=== PATIENT | female | born 2005 | race African-American/Black ===

== ENCOUNTER 2023-02-11 12:26 | Observation (INO) | payer BC, OTHER ==
[2023-02-11 13:07] LABS: Absolute Lymphocytes (CBC) 1.2 K/uL (0.7-4.9); Hematocrit 37.4 % (36.0-45.0); Lymphocytes % 13.3 % (15.3-44.8); MCV 86.3 fL (80-100); Platelets 223 thou/uL (152-406); RBC Red Blood Cell Count 4.34 M/uL (3.86-4.86)
[2023-02-11] MEDS ORDERED: ONDANSETRON 4 MG/2 ML VIAL ONE ×2 (13:12→13:55)
[2023-02-11] MEDS ORDERED: KETOROLAC 30 MG/ML INJ ONE (13:12)
[2023-02-11 13:31] LABS: ALT/SGPT 38 U/L (13-56); AST/SGOT 24 U/L (15-37); Albumin 4.2 g/dL (3.4-5.0); Alkaline Phosphatase 59 U/L (45-117); BUN Blood Urea Nitrogen 9 mg/dL (7-18); Bicarbonate 18 mEq/L (21-32); Bilirubin Direct 0.1 mg/dL (0-0.2); Bilirubin Indirect, Calculated 0.4 mg/dL (0.2-0.8); Bilirubin Total 0.5 mg/dL (0.2-1.0); Glomerular Filtration Rate 65 ml/min (=/>90); Glucose Level 123 mg/dL (74-106); Magnesium 2.2 mg/dL (1.6-2.4); Potassium 3.5 mEq/L (3.5-5.1); Protein, Total 7.5 g/dL (6.4-8.2); Sodium Level 138 mEq/L (136-145)
[2023-02-11 13:34] LABS: Troponin High Sensitivity < 3.0 pg/mL (<58.9)
[2023-02-11 13:50] LABS: Urine Bacteria <20 /HPF (<20); Urine Bilirubin NEGATIVE (Negative); Urine Blood 3+ (OVER) (Negative); Urine Clarity Turbid (Clear); Urine Color Colorless (Yellow); Urine Glucose NEGATIVE (Negative); Urine Mucus Slight /HPF (None Seen); Urine Protein TRACE (Negative); Urine RBC 21-50 /HPF (None Seen); Urine Urobilinogen Normal (Normal)
--- NOTE | 2023-02-11 13:50 | RAD REPORT ---
EXAM DESCRIPTION: RAD - Chest Single View - 02/11/2023 1:42 pm CLINICAL HISTORY: CHEST PAIN COMPARISON: No comparisons FINDINGS: Lines: None. Lungs: No evidence of edema or pneumonia. Pleural: No significant pleural effusions or pneumothorax. Cardiac: The heart size is within normal limits. Mediastinum: Within normal limits. Bones: No acute fractures. Other: None IMPRESSION: No acute cardiopulmonary disease.
[2023-02-11] MEDS ORDERED: NA CHLORIDE 0.9% 1,000 ML ONE ×2 (14:01→18:23)
--- NOTE | 2023-02-11 14:37 | RAD REPORT ---
EXAM DESCRIPTION: CT - Chest For Pe Angio - 02/11/2023 2:17 pm CLINICAL HISTORY: Chest pain;Dyspnea COMPARISON: No comparisons TECHNIQUE: Dynamically enhanced axial 3 mm thick images of the chest were obtained during administra tion of <100> mL Isovue 370 IV contrast. Coronal and oblique reconstruction images were generated and reviewed. Exam utilizes a protocol for optimal evaluation of pulmonary arterial tree. Maximum intensity projections 3D imaging was utilized All CT scans are performed using dose optimization technique as appropriate and may include automated exposure control or mA/KV adjustment according to patient size. FINDINGS: Chest Wall: No suspicious thyroid nodules or pathologic lymphadenopathy. Lungs: No acute abnormality. Pleura: No significant effusions or pneumothorax. Mediastinum/aracelis: No pathologic lymphadenopathy. Pulmonary arteries/Aorta: No filling defect identified. No aortic aneurysm. Heart: No significant pericardial effusion. Normal heart size. Upper abdomen: No acute abnormality. Bones: No acute abnormality. IMPRESSION: Negative for pulmonary embolism. No acute findings in the chest.
--- NOTE | 2023-02-11 14:41 | RAD REPORT ---
EXAM DESCRIPTION: CTAbdomen Pelvis W Contrast - 02/11/2023 2:17 pm CLINICAL HISTORY: ABD PAIN COMPARISON: Chest For Pe Angio dated 02/11/2023 TECHNIQUE: CT of the abdomen and pelvis was performed. All CT scans are performed using dose optimization technique as appropriate and may include automated exposure control or mA/KV adjustment according to patient size. FINDINGS: Lower chest: No acute abnormality. Liver: No acute abnormality or suspicious lesions. Biliary: No biliary ductal dilatation. Stomach: No significant focal abnormality. Duodenum: No significant focal abnormality. Pancreas: No significant abnormality. Spleen: No significant abnormality. Adrenal: No suspicious lesions. Kidney/ureter: No hydronephrosis. No renal calculi. Patchy enhancement of the kidneys bilaterally. Retroperitoneum: No retroperitoneal adenopathy. Vascular: No aneurysm. Bowel: No significant focal abnormality. No appendicitis. Peritoneum: No ascites or free air. Bladder: Grossly unremarkable. Reproductive: No adnexal masses. Bones: No acute fracture. Other: n/a IMPRESSION: Heterogeneous enhancement kidneys bilaterally could reflect bilateral pyelonephritis. No hydronephrosis or renal abscess.
[2023-02-11] MEDS ORDERED: PROMETHAZINE INJ 25 MG/ML AMP ONE ×2 (14:54→16:54)
--- NOTE | 2023-02-11 16:50 | ER ---
Nurse's Notes [facility] Name: Carlie Hodge Age: 17 yrs Sex: Female : 2005 Arrival Date: 02/11/2023 Time: 12:26 Bed 2 Private MD: Diagnosis: Nausea with vomiting, unspecified-intractable;Acute kidney failure, unspecified Presentation: 02/11 12:34 Chief complaint: Patient states: nausea, chest pain, palpitations that started at the iw beginning of the year after switching epilepsy meds. This episode started at 0500 today. 12:34 Method Of Arrival: Ambulatory iw 12:34 Acuity: MARIAA 3 iw 12:37 Coronavirus screen: At this time, the client does not indicate any symptoms associated iw with coronavirus-19. Ebola Screen: Patient negative for fever greater than or equal to 101.5 degrees Fahrenheit, and additional compatible Ebola Virus Disease symptoms Patient denies exposure to infectious person. Patient denies travel to an Ebola-affected area in the 21 days before illness onset. No symptoms or risks identified at this time. Initial Sepsis Screen: Does the patient meet any 2 criteria? No. Patient's initial sepsis screen is negative. Does the patient have a suspected source of infection? No. Patient's initial sepsis screen is negative. Risk Assessment: Do you want to hurt yourself or someone else? Patient reports no desire to harm self or others. 12:42 Onset of symptoms was February 11, 2023. iw Historical: - Allergies: 12:41 No Known Allergies; iw - Home Meds: 12:41 Keppra Oral [Active]; iw - PMHx: 12:41 Seizure; iw - Immunization history:: Adult Immunizations unknown. - Social history:: Smoking status: . Screenin:02 [facility] ED Fall Risk Assessment (Adult) Score/Fall Risk Level 0 - 2 = Low Risk hb Oriented to surroundings, Maintained a safe environment. 14:02 Abuse screen: Denies threats or abuse. Denies injuries from another. Nutritional hb screening: No deficits noted. Tuberculosis screening: No symptoms or risk factors identified. Assessment: 13:15 General: Appears in no apparent distress. ill, Behavior is calm, cooperative. Pain: hb Pain currently is 7 out of 10 on a pain scale. Neuro: Level of Consciousness is awake, alert, obeys commands, Oriented to person, place, time, situation. Cardiovascular: Reports chest pain, Patient's skin is warm and dry. Respiratory: Respiratory effort is even, unlabored, Respiratory pattern is regular, symmetrical. GI: Reports lower abdominal pain, upper abdominal pain, nausea, vomiting. : No signs and/or symptoms were reported regarding the genitourinary system. EENT: No signs and/or symptoms were reported regarding the EENT system. Derm: Skin is pink, warm \T\ dry. Musculoskeletal: No signs and/or symptoms reported regarding the musculoskeletal system. 14:47 Reassessment: Patient appears in no apparent distress at this time. Patient and/or hb family updated on plan of care and expected duration. Pain level reassessed. Patient is alert, oriented x 3, equal unlabored respirations, skin warm/dry/pink. 16:15 Reassessment: Patient appears in no apparent distress at this time. Patient and/or hb family updated on plan of care and expected duration. Pain level reassessed. Patient is alert, oriented x 3, equal unlabored respirations, skin warm/dry/pink. 17:25 Reassessment: Patient appears in no apparent distress at this time. Patient and/or hb family updated on plan of care and expected duration. Pain level reassessed. Patient is alert, oriented x 3, equal unlabored respirations, skin warm/dry/pink. 18:08 Reassessment: Patient appears in no apparent distress at this time. Patient and/or hb family updated on plan of care and expected duration. Pain level reassessed. Patient is alert, oriented x 3, equal unlabored respirations, skin warm/dry/pink. 19:30 General: Appears comfortable, Behavior is calm, cooperative. Pain: Denies pain. Neuro: ha1 Level of Consciousness is awake, alert, obeys commands, Oriented to person, place, time, situation. Cardiovascular: Patient's skin is warm and dry. Respiratory: Airway is patent Respiratory effort is even, unlabored, Respiratory pattern is regular, symmetrical. GI: Abdomen is flat, non-distended, Reports diarrhea, nausea, vomiting. : No signs and/or symptoms were reported regarding the genitourinary system. Musculoskeletal: Circulation, motion, and sensation intact. Range of motion: intact in all extremities. 20:30 Reassessment: Patient and/or family updated on plan of care and expected duration. Pain ha1 level reassessed. Patient is alert, oriented x 3, equal unlabored respirations, skin warm/dry/pink. Vital Signs: 12:37 Pulse 83; Resp 16; Temp 98.1; Pulse Ox 100% on R/A; Weight 41.28 kg; iw 13:24 BP 118 / 77; kc6 13:56 BP 113 / 87; Pulse 68; Resp 15; Pulse Ox 100% on R/A; hb 15:12 Pulse 94; Resp 22; Pulse Ox 100% on R/A; hb 18:00 BP 112 / 74; Pulse 89; Resp 18; Pulse Ox 100% on R/A; hb 19:15 BP 117 / 82; Pulse 64; Resp 17 S; Pulse Ox 100% on R/A; ha1 ED Course: 12:28 Patient arrived in ED. ts1 12:28 [facility] More[facility]C [facility]. kb 12:28 Yenny Bertrand MD is Attending Physician. kb 12:36 Triage completed. iw 12:42 Arm band placed on. iw 13:00 Inserted saline lock: 20 gauge in left antecubital area, using aseptic technique. Blood hb collected. 13:04 Haydee Almeida, RN is Primary Nurse. hb 13:43 Radiology exam delayed due to test not completed at this time. mw3 13:44 XRAY Chest (1 view) In Process Unspecified. EDMS 14:02 Patient has correct armband on for positive identification. Provided Education on: . hb 14:19 CT Chest For PE Angio In Process Unspecified. EDMS 14:19 CT Abd/Pelvis - IV Contrast Only In Process Unspecified. EDMS 16:49 Kvng Hicks MD is Hospitalizing Provider. kb 16:58 Emery Stover MD is Hospitalizing Provider. kb 21:29 No provider procedures requiring assistance completed. Patient admitted, IV remains in pf1 place. Administered Medications: 13:04 Drug: Ketorolac IVP 15 mg Route: IVP; Site: left antecubital; hb 13:40 Follow up: Response: No adverse reaction hb 13:04 Drug: Ondansetron IVP 4 mg Route: IVP; Site: left antecubital; hb 13:40 Follow up: Response: No adverse reaction hb 13:56 Drug: NS 0.9% IV 1000 ml Route: IV; Rate: 1000 ml; Site: left antecubital; hb 14:30 Follow up: Response: No adverse reaction; IV Status: Completed infusion; IV Intake: hb 1000ml 13:56 Drug: Ondansetron IVP 4 mg Route: IVP; Site: left antecubital; hb 14:30 Follow up: Response: No adverse reaction hb 14:46 Drug: Promethazine IVP 6.25 mg Route: IVP; Site: left antecubital; hb 15:15 Follow up: Response: No adverse reaction hb 16:46 Drug: Promethazine IVP 6.25 mg Route: IVP; Site: left antecubital; hb 18:41 Follow up: Response: No adverse reaction hb 18:41 Drug: NS 0.9% IV 1000 ml Route: IV; Rate: 1000 ml; Site: left antecubital; hb 21:15 Follow up: Response: No adverse reaction; IV Status: Infusion continued; IV Intake: ha1 700ml 18:41 Drug: Pantoprazole IVP 40 mg Route: IVP; Site: left antecubital; hb 19:10 Follow up: Response: No adverse reaction ha1 Medication: 14:48 VIS not applicable for this client. hb Intake: 14:30 IV: 1000ml; Total: 1000ml. hb 21:15 IV: 700ml; Total: 1700ml. ha1 Outcome: 16:50 Decision to Hospitalize by Provider. kb 21:28 Admitted to Med/surg accompanied by tech, via wheelchair, room 410, with chart, Report pf1 called to MARYELLEN Dixon 21:36 Condition: stable pf1 21:36 Patient left the ED. pf1 Signatures: Dispatcher [employer] EDAnjali Mariscal, SELMA-C FLEXOGRAPHIC PRESS PLATE SETTER-CkMary Harper RN RN iw Baxter, Heather, RN RN hb Willis, Michelle mw3 Sneha Blandon RN RN haTwyla Charles RN RN kc6 Beti Laguna RN RN pf1 Kelli Castellon PAS PAS ts1 Corrections: (The following items were deleted from the chart) 12:37 12:34 Chief complaint: Patient states: nausea, chest pain, palpitations that started at iw the beginning of the year. This episode started at 0500 today iw 12:42 12:37 Pulse 83bpm; Resp 16bpm; Pulse Ox 100% RA; Temp 98.1F; iw iw
--- NOTE | 2023-02-11 16:50 | EDPHYS ---
Physician Documentation [facility] Name: Carlie Hodge Age: 17 yrs Sex: Female : 2005 Arrival Date: 02/11/2023 Time: 12:26 Bed 2 Private MD: ED Physician Yenny Bertrand HPI: 02/11 14:29 This 17 yrs old Female presents to ER via Ambulatory with complaints of Abdominal Pain, kb Chest Pain, Nausea/Vomiting. 14:29 The patient or guardian reports chest pain that is located primarily in the chest kb diffusely. The pain does not radiate. Associated signs and symptoms: Pertinent positives: abdominal pain, nausea, palpitations, vomiting. The chest pain is described as sharp. Duration: The patient or guardian reports a single episode, that is still ongoing. Modifying factors: The symptoms are alleviated by nothing. the symptoms are aggravated by nothing. Severity of pain: At its worst the pain was moderate in the emergency department the pain is unchanged. The patient has not experienced similar symptoms in the past. The patient has not recently seen a physician. Patient is a 17-year-old female who presents for palpitation, chest pain and nausea that started at 5:00 this morning. States she has had the symptoms intermittently since June when epilepsy medication was changed, lately symptoms have been worse.. Historical: - Allergies: 12:41 No Known Allergies; iw - Home Meds: 12:41 Keppra Oral [Active]; iw - PMHx: 12:41 Seizure; iw - Immunization history:: Adult Immunizations unknown. - Social history:: Smoking status: . ROS: 14:25 Constitutional: Negative for fever, chills, and weight loss. kb 14:25 Cardiovascular: Positive for chest pain, palpitations. 14:25 Abdomen/GI: Positive for abdominal pain, nausea and vomiting, Negative for diarrhea, constipation. 14:25 All other systems are negative. Exam: 14:26 Constitutional: This is a well developed, well nourished patient who is awake, alert, kb and in no acute distress. Head/Face: Normocephalic, atraumatic. ENT: Moist Mucous membranes Cardiovascular: Regular rate and rhythm with a normal S1 and S2. No gallops, murmurs, or rubs. No pulse deficits. Respiratory: Respirations even and unlabored. No increased work of breathing. Talking in full sentences Skin: Warm, dry with normal turgor. Normal color. MS/ Extremity: Pulses equal, no cyanosis. Neurovascular intact. Full, normal range of motion. Neuro: Awake and alert, GCS 15, oriented to person, place, time, and situation. Moves all extremities. Normal gait. 14:26 ECG was reviewed by the Attending Physician. 14:26 Abdomen/GI: Inspection: abdomen appears normal, Bowel sounds: normal, Palpation: soft, in all quadrants, mild abdominal tenderness, in the left upper quadrant and left lower quadrant, moderate abdominal tenderness, in the right lower quadrant. Vital Signs: 12:37 Pulse 83; Resp 16; Temp 98.1; Pulse Ox 100% on R/A; Weight 41.28 kg; iw 13:24 BP 118 / 77; kc6 13:56 BP 113 / 87; Pulse 68; Resp 15; Pulse Ox 100% on R/A; hb 15:12 Pulse 94; Resp 22; Pulse Ox 100% on R/A; hb 18:00 BP 112 / 74; Pulse 89; Resp 18; Pulse Ox 100% on R/A; hb 19:15 BP 117 / 82; Pulse 64; Resp 17 S; Pulse Ox 100% on R/A; ha1 MDM: 12:28 Patient medically screened. kb 14:27 Data reviewed: vital signs, nurses notes. kb 14:31 Differential diagnosis: abnormal EKG, acute myocardial infarction, coronary artery kb disease Appendicitis, medication reaction. 16:48 Consideration of Admission/Observation Patient was admitted/placed on observation. kb Escalation of care including admission/observation considered. Management of patient was discussed with the following: Hospitalist: Hospitalist team, admit to [facility]. Counseling: I had a detailed discussion with the patient and/or guardian regarding the historical points, exam findings, and any diagnostic results supporting the discharge/admit diagnosis, lab results, radiology results, the need for further work-up and treatment in the hospital. ED course: Pt unable to tolerate po after treatment. Will admit. 02/11 12:39 Order name: Basic Metabolic Panel; Complete Time: 13:40 kb 02/11 12:39 Order name: CBC with Diff; Complete Time: 13:08 kb 02/11 12:39 Order name: D-Dimer; Complete Time: 13:12 kb 02/11 12:39 Order name: LFT's; Complete Time: 13:40 kb 02/11 12:39 Order name: Magnesium; Complete Time: 13:40 kb 02/11 12:39 Order name: Troponin HS; Complete Time: 13:40 kb 02/11 12:39 Order name: TSH; Complete Time: 13:40 kb 02/11 13:29 Order name: Test, Urine; Complete Time: 13:51 kb 02/11 13:29 Order name: Urinalysis w/ reflexes; Complete Time: 13:51 kb 02/11 12:39 Order name: XRAY Chest (1 view); Complete Time: 13:51 kb 02/11 13:12 Order name: CT Chest For PE Angio; Complete Time: 14:50 kb 02/11 13:12 Order name: CT Abd/Pelvis - IV Contrast Only; Complete Time: 14:50 kb 02/11 12:39 Order name: EKG; Complete Time: 12:40 kb 02/11 12:39 Order name: Cardiac monitoring; Complete Time: 13:24 kb 02/11 12:39 Order name: EKG - Nurse/Tech; Complete Time: 13:24 kb 02/11 12:39 Order name: IV Saline Lock; Complete Time: 13:00 kb 02/11 12:39 Order name: Labs collected and sent; Complete Time: 13:00 kb 02/11 12:39 Order name: O2 Per Protocol; Complete Time: 13:00 kb 02/11 12:39 Order name: O2 Sat Monitoring; Complete Time: 13:00 kb 02/11 16:15 Order name: PO challenge; Complete Time: 16:31 kb EC:26 Rate is 75 beats/min. Rhythm is regular. QRS [place] is Normal. HI interval is normal at kb 142 msec. QRS interval is normal at 68 msec. QT interval is normal at 457 msec. Administered Medications: 13:04 Drug: Ketorolac IVP 15 mg Route: IVP; Site: left antecubital; hb 13:40 Follow up: Response: No adverse reaction hb 13:04 Drug: Ondansetron IVP 4 mg Route: IVP; Site: left antecubital; hb 13:40 Follow up: Response: No adverse reaction hb 13:56 Drug: NS 0.9% IV 1000 ml Route: IV; Rate: 1000 ml; Site: left antecubital; hb 14:30 Follow up: Response: No adverse reaction; IV Status: Completed infusion; IV Intake: hb 1000ml 13:56 Drug: Ondansetron IVP 4 mg Route: IVP; Site: left antecubital; hb 14:30 Follow up: Response: No adverse reaction hb 14:46 Drug: Promethazine IVP 6.25 mg Route: IVP; Site: left antecubital; hb 15:15 Follow up: Response: No adverse reaction hb 16:46 Drug: Promethazine IVP 6.25 mg Route: IVP; Site: left antecubital; hb 18:41 Follow up: Response: No adverse reaction hb 18:41 Drug: NS 0.9% IV 1000 ml Route: IV; Rate: 1000 ml; Site: left antecubital; hb 21:15 Follow up: Response: No adverse reaction; IV Status: Infusion continued; IV Intake: ha1 700ml 18:41 Drug: Pantoprazole IVP 40 mg Route: IVP; Site: left antecubital; hb 19:10 Follow up: Response: No adverse reaction ha1 Disposition Summary: 02/11/23 16:50 Hospitalization Ordered Hospitalization Status: Observation Location: Telemetry/MedSurg (observation) kb Condition: Stable kb Problem: new kb Symptoms: are unchanged kb Bed/Room Type: Standard Provider: Emery Stover(02/11/23 16:58) Room Assignment: [facility](02/11/23 20:45) Diagnosis - Nausea with vomiting, unspecified - intractable kb - Acute kidney failure, unspecified kb Forms: - Medication Reconciliation Form kb - SBAR form kb - Leadership Thank You Letter kb Signatures: Dispatcher [employer] Anjali Verma, PETROLEUM ENGINEER-C PETROLEUM ENGINEER-Ckb Mary Crawford, RN RN Reynaldo Mccann PETROLEUM ENGINEER-C PETROLEUM ENGINEER-Cla1 Dolly Puckett RN RN Haydee Almeida RN RN Sneha Blandon RN ha1 Corrections: (The following items were deleted from the chart) 16:49 16:16 Counseling: I had a detailed discussion with the patient and/or guardian kb regarding the historical points, exam findings, and any diagnostic results supporting the discharge/admit diagnosis, lab results, radiology results, the need for outpatient follow up, a family practitioner, to return to the emergency department if symptoms worsen or persist or if there are any questions or concerns that arise at home, kb 16:58 16:48 Management of patient was discussed with the following: Hospitalist: Hospitalist foster team, admit to [facility] foster 1658 16:50 Kvng Hicks 20:45 16:50 foster
[2023-02-11] MEDS ORDERED: PANTOPRAZOLE 40 MG INJ ONE (18:22)
--- NOTE | 2023-02-11 19:56 | P.HP ---
Certification for Inpatient Patient admitted to: Observation With expected LOS: <2 Midnights Patient will require the following post-hospital care: None Practitioner: I am a practitioner with admitting privileges, knowledge of patient current condition, hospital course, and medical plan of care. Services: Services provided to patient in accordance with Admission requirements found in Title 42 Section 412.3 of the Code of Federal Regulations <Reynaldo Escoto - Last Filed: 02/11/23 19:52> Patient History Date of Service: 02/11/23 Reason for admission: Intractable vomiting History of Present Illness: 17-year-old female with history of seizure disorder presents emergency department with chief complaints of vomiting. She reports the vomiting began around 5 AM this morning she does report similar episodes in the past but none this severe. She has never required hospitalization for this. She denies any previous GI evaluation including EGD. Denies use of marijuana or other street drugs. She was evaluated in the emergency department her labs are significant for D-dimer 688 chloride 113 bicarb 18 creatinine 1.23 GFR 65 glucose 123 UA not suggestive of UTI there is blood present patient is on her cycle. Chest x-ray was negative for acute findings CTA of the chest negative for pulmonary embolism or other acute findings in the chest CT of the abdomen pelvis was significant for heterogenous enhancement kidneys bilaterally could reflect bilateral pyelonephritis. No hydronephrosis or renal abscess. Patient is afebrile denies fever, chills, urinary symptoms, UA not suggestive of urinary tract infection, no CVA tenderness doubt pyelonephritis. Patient was given Zofran twice, Phenergan as well as Protonix in the ED still with nausea, not tolerating p.o. fluids will need to be admitted under observation for intractable vomiting. - Past Medical/Surgical History -: Seizure disorder -: None Psychosocial/ Personal History: Lives at home with family - Family History Mother -: Diabetes - Social History Alcohol use: No CD- Drugs: No Place of Residence: Home <Reynaldo Escoto - Last Filed: 02/11/23 19:52> Date of Service: 02/12/23 <Perfecto Ozuna - Last Filed: 02/12/23 14:39> Review of Systems 10-point ROS is otherwise unremarkable Gastrointestinal: Nausea, Vomiting <Reynaldo Escoto - Last Filed: 02/11/23 19:52> Physical Examination - Physical Exam General: Alert, In no apparent distress, Oriented x3 HEENT: Atraumatic, PERRLA, Mucous membr. moist/pink, Sclerae nonicteric Neck: Supple Respiratory: Clear to auscultation bilaterally, Normal air movement Cardiovascular: No edema, Regular rate/rhythm, Normal S1 S2 Capillary refill: <2 Seconds Gastrointestinal: Normal bowel sounds, No tenderness Integumentary: No rashes Neurological: Normal speech, Normal strength at 5/5 x4 extr, Normal tone, Normal affect - Studies Laboratory Data (last 24 hrs) 02/11/23 02/11/23 12:57 12:57 WBC 9.20 Hgb 12.4 Hct 37.4 Plt Count 223 Sodium 138 Potassium 3.5 BUN 9 Creatinine 1.23 H Glucose 123 H Magnesium 2.2 Total Bilirubin 0.5 AST 24 ALT 38 Alkaline Phosphatase 59 <Reynaldo Escoto - Last Filed: 02/11/23 19:52> Assessment and Plan - Plan Assessment: Intractable vomiting Epilepsy Plan: Intractable vomiting CT abdomen pelvis suggest possibility of pyelonephritis although UA not concerning for urinary tract infection normal white count no fever, chills or CVA tenderness. Continue IV fluids, n.p.o. advance diet as tolerated. No abdominal tenderness noted does report similar episodes in the past but none this severe has never had EGD before. Denies use of cannabis. Epilepsy Continue Keppra 125 mg daily as well as zonisamide. DVT PPX:Lovenix Code status:Full Discharge Plan: Home Plan to discharge in: 24 Hours - Advance Directives Does patient have a Living Will: No Does patient have a Durable POA for Healthcare: No - Code Status/Comfort Care Code Status Assessed: Yes (Full code) Critical Care: No Time Spent Managing Pts Care (In Minutes): 55 <Reynaldo Escoto - Last Filed: 02/11/23 19:52> Date of Service: 02/12/23 Patient seen and examined. Agree with plan of care as mentioned above. Anticipate discharge later today if patient tolerates diet. We will reassess patient in the evening. <Perfecto Ozuna - Last Filed: 02/12/23 14:39>
--- NOTE | 2023-02-11 21:31 | P.HP ---
Certification for Inpatient Patient admitted to: Observation With expected LOS: <2 Midnights <Perfecto Ozuna - Last Filed: 02/12/23 14:39> Patient History Date of Service: 02/11/23 Reason for admission: Intractable vomiting History of Present Illness: 17-year-old female with history of seizure disorder presents emergency department with chief complaints of vomiting. She reports the vomiting began around 5 AM this morning she does report similar episodes in the past but none this severe. She has never required hospitalization for this. She denies any previous GI evaluation including EGD. Denies use of marijuana or other street drugs. She was evaluated in the emergency department her labs are significant for D-dimer 688 chloride 113 bicarb 18 creatinine 1.23 GFR 65 glucose 123 UA not suggestive of UTI there is blood present patient is on her cycle. Chest x-ray was negative for acute findings CTA of the chest negative for pulmonary embolism or other acute findings in the chest CT of the abdomen pelvis was significant for heterogenous enhancement kidneys bilaterally could reflect bilateral pyelonephritis. No hydronephrosis or renal abscess. Patient is afebrile denies fever, chills, urinary symptoms, UA not suggestive of urinary tract infection, no CVA tenderness doubt pyelonephritis. Patient was given Zofran twice, Phenergan as well as Protonix in the ED still with nausea, not tolerating p.o. fluids will need to be admitted under observation for intractable vomiting. - Past Medical/Surgical History -: Seizure disorder -: None Psychosocial/ Personal History: Lives at home with family - Family History Mother -: Diabetes - Social History Alcohol use: No CD- Drugs: No Place of Residence: Home <Reynaldo Escoto - Last Filed: 02/11/23 21:25> Date of Service: 02/12/23 <Perfecto Ozuna - Last Filed: 02/12/23 14:39> Physical Examination - Studies Laboratory Data (last 24 hrs) 02/11/23 02/11/23 12:57 12:57 WBC 9.20 Hgb 12.4 Hct 37.4 Plt Count 223 Sodium 138 Potassium 3.5 BUN 9 Creatinine 1.23 H Glucose 123 H Magnesium 2.2 Total Bilirubin 0.5 AST 24 ALT 38 Alkaline Phosphatase 59 <Reynaldo Escoto - Last Filed: 02/11/23 21:25> Assessment and Plan - Plan Assessment: Intractable vomiting Epilepsy Plan: Intractable vomiting CT abdomen pelvis suggest possibility of pyelonephritis although UA not concerning for urinary tract infection normal white count no fever, chills or CVA tenderness. Continue IV fluids, n.p.o. advance diet as tolerated. No abdominal tenderness noted does report similar episodes in the past but none this severe has never had EGD before. Denies use of cannabis. Epilepsy Continue Keppra 125 mg daily as well as zonisamide. DVT PPX:Lovenix Code status:Full - Advance Directives Does patient have a Living Will: No Does patient have a Durable POA for Healthcare: No <Reynaldo Escoto - Last Filed: 02/11/23 21:25>
[2023-02-11 21:46] VITALS: BMI 16.1
[2023-02-11] MEDS ORDERED: ONDANSETRON 4 MG/2 ML VIAL IV PRN (21:46)
[2023-02-11] MEDS ORDERED: ACETAMINOPHEN 500 MG TAB PO PRN (21:46)
[2023-02-11] MEDS ORDERED: SODIUM CHLORIDE 0.9% 10ML INJ IV PRN (21:46)
[2023-02-11] MEDS: Ringers Lactate 1,000 ML IV SCH (22:05)
[2023-02-11] MEDS: PANTOPRAZOLE 40 MG INJ IVP SCH (22:05)
[2023-02-12 04:23] LABS: Absolute Lymphocytes (CBC) 2.4 K/uL (0.7-4.9); Hematocrit 28.7 % (36.0-45.0); MCV 86.7 fL (80-100); MPV 9.6 fL (7.6-11.3); Platelets 164 thou/uL (152-406); RBC Red Blood Cell Count 3.31 M/uL (3.86-4.86)
[2023-02-12 04:32] LABS: Potassium 3.6 mEq/L (3.5-5.1)
[2023-02-12] MEDS: Ringers Lactate 1,000 ML IV SCH ×2 (05:38→12:52)
--- NOTE | 2023-02-12 06:54 | P.PN ---
Date of Service: 02/12/23 Subjective: Physical Exam: Vitals: Reviewed Gen: Alert, Oriented x3, NAD CV: regular rate & rhythm, no edema Pulm: Respirations are clear bilaterally Abd: soft, nontender, nondistended MSK: no joint tenderness Integumentary: no rashes Neuro: normal speech, normal affect Problem List: Intractable vomiting Epilepsy Plan: Continue IVF NPO, advance diet as tolerated. Continue Keppra 125 mg daily as well as zonisamide. DVT prophylaxis with lovenox Continue PPI Confirm home medications, restart as appropriate
[2023-02-12] MEDS: PANTOPRAZOLE 40 MG INJ IVP SCH ×2 (08:06→20:50)
[2023-02-12] MEDS ORDERED: levETIRAcetam 500 MG TAB PO SCH (09:00)
[2023-02-12] MEDS ORDERED: ENOXAPARIN 40 MG/0.4 ML SQ SCH (09:00)
[2023-02-12] MEDS ORDERED: clonazePAM 0.5 MG TAB PO SCH (14:00)
--- NOTE | 2023-02-12 14:43 | P.DS ---
Discharge Date: 02/12/23 Disposition: ROUTINE DISCHARGE Discharge Condition: GOOD Reason for Admission: Intractable vomiting Brief History of Present Illness: Patient is a 17-year-old female with history of seizure disorder presents emergency department with chief complaints of vomiting. She reports the vomiting began around 5 AM this morning she does report similar episodes in the past but none this severe. She has never required hospitalization for this. She denies any previous GI evaluation including EGD. Denies use of marijuana or other street drugs. She was evaluated in the emergency department her labs are significant for D-dimer 688 chloride 113 bicarb 18 creatinine 1.23 GFR 65 glucose 123 UA not suggestive of UTI there is blood present patient is on her cycle. Chest x-ray was negative for acute findings CTA of the chest negative for pulmonary embolism or other acute findings in the chest CT of the abdomen pelvis was significant for heterogenous enhancement kidneys bilaterally could reflect bilateral pyelonephritis. No hydronephrosis or renal abscess. Patient is afebrile denies fever, chills, urinary symptoms, UA not suggestive of urinary tract infection, no CVA tenderness doubt pyelonephritis. Patient was given Zofran twice, Phenergan as well as Protonix in the ED still with nausea, not tolerating p.o. fluids will need to be admitted under observation for intractable vomiting. Hospital Course: Patient advance diet. She tolerated it well. She is clinically stable for discharge with outpatient follow-up. Vital Signs/Physical Exam: Temp Pulse Resp BP Pulse Ox 97.8 F 66 16 119/63 100 02/12/23 12:00 02/12/23 12:00 02/12/23 12:00 02/12/23 12:00 02/12/23 12:00 General: Alert, In no apparent distress, Oriented x3 Laboratory Data at Discharge: WBC 8.80 thou/uL (4.3-10.9) 02/12/23 03:53 Hgb 9.4 g/dL (12.0-15.0) L D 02/12/23 03:53 Hct 28.7 % (36.0-45.0) L 02/12/23 03:53 Plt Count 164 thou/uL (152-406) D 02/12/23 03:53 Sodium 140 mEq/L (136-145) 02/12/23 03:53 Potassium 3.6 mEq/L (3.5-5.1) 02/12/23 03:53 BUN 10 mg/dL (7-18) 02/12/23 03:53 Creatinine 0.97 mg/dL (0.55-1.02) 02/12/23 03:53 Glucose 90 mg/dL (74-106) 02/12/23 03:53 Magnesium 2.0 mg/dL (1.6-2.4) 02/12/23 03:53 Total Bilirubin 0.5 mg/dL (0.2-1.0) 02/11/23 12:57 AST 24 U/L (15-37) 02/11/23 12:57 ALT 38 U/L (13-56) 02/11/23 12:57 Alkaline Phosphatase 59 U/L (45-117) 02/11/23 12:57 Home Medications: Levetiracetam [Keppra] 125 mg PO DAILY 02/11/23 Zonisamide [Zonegran] 3 tab PO DAILY 02/11/23 Physician Discharge Instructions: -DC IV and DC home -Follow-up with PCP in 1 to 2 weeks -Follow-up with rigging helper, Dr. Phan or Dr. Steward, in 1 to 2 weeks -Please call Dr. Ozuna at [phone] if any questions regarding hospital stay -Please call nursing station at [phone] if any nursing or medication questions -Return to the emergency room if symptoms worsen Diet: Regular Activity: Fall precautions Followup: Unknown,U [Primary Care Provider] - Time spent managing pt's care (in minutes): 35
[2023-02-12 20:50] VITALS: BP 123/67; TEMP 98.3
[2023-02-12 20:54] VITALS: O2SAT 99
[2023-02-13] MEDS ORDERED: levETIRAcetam 500 MG TAB PO SCH (09:00)
[2023-02-13] MEDS ORDERED: HOME MED 1 EA UNK (Levetiracetam [Keppra] 250 MG Tablet) PO SCH (09:00)
[2023-02-13] MEDS ORDERED: HOME MED 1 EA UNK (Zonisamide [Zonegran] 100 MG Capsule) PO SCH (09:00)
--- NOTE | 2023-02-13 16:52 | EKG ---
Test Date: 2023-02-11 Test Time: 13:21:51 Track Template Maker: CLAUDIA MEASUREMENT RESULTS: Intervals: Rate: 75 MA: 142 QRSD: 68 QT: 410 QTc: 457 [place]: P: 62 MA: 142 QRS: 89 T: 22 INTERPRETIVE STATEMENTS: Normal sinus rhythm with sinus arrhythmia Normal ECG No previous ECG available for comparison Electronically Signed On 02-13-23 16:45:48 CDT by Melvin Bruner
== END 2023-02-12 21:45 | disposition home or self-care (01) ==
LOC: ER 12:26 → ERHOLD 19:31 → 4TH 20:57
PROVIDERS: ADMIT Hospitalist; ATTEND Hospitalist
DX: R11.10 Vomiting, unspecified (principal); N17.9 Acute kidney failure, unspecified; G40.909 Epilepsy, unspecified, not intractable, without status epilepticus
CPT/HCPCS: 96361; 85025 ×2; 81001; 80048 ×2; 36415; 83735 ×2; 81025; 85379; 80076; 84443; 84484; 84439; 71275; 74177; 71045; 96375; 96374; 99285; Q9967; J2550 ×2; C9113 ×3; J2405 ×3; J7120 ×3; J7030 ×2; 93005; G0378

== ENCOUNTER → 2023-06-27 | Emergency (ER) | payer BC, OTHER ==
--- OUTSIDE RECORDS SUMMARY | 2023-06-27 12:24 | XMS REPORT | Continuity of Care Document ---
Author Name Unknown Address [address] [facility] [address] [place] [address] [facility] thconnect Address [address] [facility]. 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 Name Role Phone LISA PETE Primary Care Physician Unavailab LISA Albright Attending Clinician Unavailable Lisa Olson Attending Clinician [phone] Cathie Leo Attending Clinician [phone] Lab, Ang - Db Attending Clinician Unavailable Doctor Unassigned, Tobin Attending Clinician U navailable Nurse, Ang [facility] Attending Clinician Un available Unknown, Attending Attending Clinician Unavailab Sunshine Francis Attending Clinician [phone] SUNSHINE OWUSU Attending Clinician Unavailable Aye Queen RN Attending Clinician Jennifer Campuzano MA Attending Clinician Unavail able Adelaide Cleaning LVN Attending Clinician Unavail able CAREN ALLEN Attending Clinician Unavailable Caren Holloway Attending Clinician [phone] TYLER ALICIA Attending Clinician Unavail able TYLER ALICIA Attending Clinician Unavail able Tyler Alicia MD Attending Clinician [phone] CATHIE HERNÁNDEZ Attending Clinician Unavailable Cathie Cr Attending Clinician [phone] Slim BOJORQUEZ, Rose M Attending Clinician [phone] CHRISTELLE BARBOZA Attending Clinician Unavailable Antonio Felix MD Attending Clinician [phone] Christelle Barboza MD Attending Clinician [phone] ANTONIO FELIX Attending Clinician Unavailable [facility], [facility] Eeg Attending Clinician Unavailable JANEEN DUMONT Attending Clinician Unavailable Janeen Dumont PA-C Attending Clinician [phone] CHRISTELLE BARBOZA Admitting Clinician Unavailable Christelle Barboza MD Admitting Clinician [phone] TYLER ALICIA Admitting Clinician Unavail able Payers Payer Name Policy Type Policy Number Effective Date Expirati on Date Source [id number] 2022 00:00:00 2023 00:00:00 Problems Condition Name Condition Details Condition Category Status Onset Date Resolution Date Last Treatment Date Treating Clinician Comments Source Epigastric abdominal pain Epigastric abdominal pain Disease Active 2022-06 00:00: 00 [facility] Nausea Nausea Disease Active 2022-06 00:00: 00 [facility] Anxiety and depression Anxiety and depression Disease Active 2022-06 00:00: 00 [facility] Encounter to establish care Encounter to establish care Disease Active 2022-06 00:00: 00 [facility] Need for vaccinatio n Need for vaccinatio n Disease Active 2022-06 00:00: 00 [facility] Juvenile myoclonic epilepsy, 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, 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, 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, 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 Active 06-12 00:00: 00 [facility] No known active problems No known active problems Disease [facility] Allergies, Adverse Reactions, Alerts Allergy Name Allergy Type Status Severity Reaction(s) Onset Date Inactive Date Treating Clinician Comments Source NO KNOWN ALLERGIE S Drug Class Active [facility] Social History Social Habit Start Date Stop Date Quantity Comments Source History of tobacco use Passive smoker [facility] History SDOH Social Connections Get Together [facility] 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 [facility] History SDOH Social Connections Membership [facility] History SDOH Social Connections Meetings [facility] Alcohol intake 2023-03-30 00:00:00 2023-03-30 00:00:00 Lifetime non-drinker (finding) [facility] Exposure to SARS-CoV-2 (event) 2022-10-20 00:00:00 2022-10-30 13:22:00 Not sure [facility] History of Social function 2022-10-30 00:00:00 2022-10-30 00:00:00 [facility] History SDOH Alcohol Frequency 2022-06-14 00:00:00 2022-06-14 00:00:00 1 [facility] History SDOH Alcohol Std Drinks 2022-06-14 00:00:00 2022-06-14 00:00:00 0 [facility] History SDOH Alcohol Binge 2022-06-14 00:00:00 2022-06-14 00:00:00 1 [facility] History SDOH Social Connections Phone 2022-06-14 00:00:00 2022-06-14 00:00:00 3 [facility] History SDOH Social Connections Living 2022-06-14 00:00:00 2022-06-14 00:00:00 7 [facility] History SDOH Physical Activity DPW 2022-06-14 00:00:00 2022-06-14 00:00:00 2 [facility] History SDOH Physical Activity MPS 2022-06-14 00:00:00 2022-06-14 00:00:00 1 [facility] History SDOH Financial 2022-06-14 00:00:00 2022-06-14 00:00:00 5 [facility] History SDOH Food Worry 2022-06-14 00:00:00 2022-06-14 00:00:00 1 [facility] History SDOH Food Scarcity 2022-06-14 00:00:00 2022-06-14 00:00:00 1 [facility] History SDOH Transport Med 2022-06-14 00:00:00 2022-06-14 00:00:00 2 [facility] History SDOH Transport Non-Med 2022-06-14 00:00:00 2022-06-14 00:00:00 2 [facility] Tobacco use and exposure 2022-06-12 00:00:00 2022-06-12 00:00:00 Smokeless tobacco non-user [facility] Sex Assigned At 2005 00:00:00 2005 00:00:00 [facility] Smoking Status Start Date Stop Date Source Never smoked tobacco [facility] Medications Ordered Medication Name Filled Medication Name Start Date Stop Date Current Medication? Ordering Clinician Indication Dosage Frequency Signature (SIG) Comments Components Source pantoprazol e 40 mg EC tablet 06-25 00:00: 00 Yes [id number] 40mg TAKE 1 TABLET BY MOUTH IN THE MORNING [facility] pantoprazol e 40 mg EC tablet 06-25 00:00: 00 Yes [id number] 40mg TAKE 1 TABLET BY MOUTH IN THE MORNING [facility] SERTRALINE 25 mg tablet 06-22 00:00: 00 Yes [id number] 25mg TAKE 1 TABLET BY MOUTH IN THE MORNING [facility] SERTRALINE 25 mg tablet 06-22 00:00: 00 Yes [id number] 25mg TAKE 1 TABLET BY MOUTH IN THE MORNING [facility] SERTRALINE 25 mg tablet 06-22 00:00: 00 Yes [id number] 25mg TAKE 1 TABLET BY MOUTH IN THE MORNING [facility] busPIRone 10 mg tablet 2022-06 00:00: 00 Yes [id number] 10mg Take 1 tablet by mouth 2 (two) times daily as needed (anxiety). [facility] busPIRone 10 mg tablet 2022-06 00:00: 00 Yes [id number] 10mg Take 1 tablet by mouth 2 (two) times daily as needed (anxiety). [facility] busPIRone 10 mg tablet 2022-06 00:00: 00 Yes [id number] 10mg Take 1 tablet by mouth 2 (two) times daily as needed (anxiety). [facility] busPIRone 10 mg tablet 2022-06 00:00: 00 Yes [id number] 10mg Take 1 tablet by mouth 2 (two) times daily as needed (anxiety). [facility] pantoprazol e 40 mg EC tablet 2022-06 00:00: 00 Yes [id number] 40mg Take 1 tablet by mouth in the morning. [facility] pantoprazol e 40 mg EC tablet 2022-06 00:00: 00 Yes [id number] 40mg Take 1 tablet by mouth in the morning. [facility] pantoprazol e 40 mg EC tablet 2022-06 00:00: 00 Yes [id number] 40mg Take 1 tablet by mouth in the morning. [facility] pantoprazol e 40 mg EC tablet 2022-06 00:00: 00 06-25 00:00 :00 No [id number] 40mg Take 1 tablet by mouth in the morning. [facility] pantoprazol e 40 mg EC tablet 2022-06 00:00: 00 06-25 00:00 :00 No [id number] 40mg Take 1 tablet by mouth in the morning. [facility] ondansetron (ZOFRAN) 4 mg tablet 2022-06 00:00: 00 Yes [id number] 4mg Take 1 tablet by mouth every 8 (eight) hours as needed for Nausea and Vomiting (N/V). [facility] ondansetron (ZOFRAN) 4 mg tablet 2022-06 00:00: 00 Yes [id number] 4mg Take 1 tablet by mouth every 8 (eight) hours as needed for Nausea and Vomiting (N/V). [facility] ondansetron (ZOFRAN) 4 mg tablet 2022-06 00:00: 00 Yes [id number] 4mg Take 1 tablet by mouth every 8 (eight) hours as needed for Nausea and Vomiting (N/V). [facility] ondansetron (ZOFRAN) 4 mg tablet 2022-06 00:00: 00 Yes [id number] 4mg Take 1 tablet by mouth every 8 (eight) hours as needed for Nausea and Vomiting (N/V). [facility] ondansetron (ZOFRAN) 4 mg tablet 2022-06 00:00: 00 Yes [id number] 4mg Take 1 tablet by mouth every 8 (eight) hours as needed for Nausea and Vomiting (N/V). [facility] ondansetron (ZOFRAN) 4 mg tablet 2022-06 00:00: 00 Yes [id number] 4mg Take 1 tablet by mouth every 8 (eight) hours as needed for Nausea and Vomiting (N/V). [facility] ondansetron (ZOFRAN) 4 mg tablet 2022-06 00:00: 00 Yes [id number] 4mg Take 1 tablet by mouth every 8 (eight) hours as needed for Nausea and Vomiting (N/V). [facility] zonisamide 100 mg capsule 2022-06 00:00: 00 Yes [id number] 300mg Take 3 capsules by mouth in the morning. [facility] zonisamide 100 mg capsule 2022-06 00:00: 00 Yes [id number] 300mg Take 3 capsules by mouth in the morning. [facility] zonisamide 100 mg capsule 2022-06 00:00: 00 Yes [id number] 300mg Take 3 capsules by mouth in the morning. [facility] zonisamide 100 mg capsule 2022-06 00:00: 00 Yes [id number] 300mg Take 3 capsules by mouth in the morning. [facility] zonisamide 100 mg capsule 2022-06 00:00: 00 Yes [id number] 300mg Take 3 capsules by mouth in the morning. [facility] zonisamide 100 mg capsule 2022-06 00:00: 00 Yes [id number] 300mg Take 3 capsules by mouth in the morning. [facility] zonisamide 100 mg capsule 2022-06 00:00: 00 Yes [id number] 300mg Take 3 capsules by mouth in the morning. [facility] zonisamide 100 mg capsule 2022-06 00:00: 00 Yes [id number] 300mg Take 3 capsules by mouth in the morning. [facility] PANTOPRAZOL E 40 mg EC tablet 2022-06 00:00: 00 05-24 05:59 :00 Yes [id number] 40mg TAKE 1 TABLET BY MOUTH IN THE MORNING FOR 30 DAYS [facility] PANTOPRAZOL E 40 mg EC tablet 2022-06 00:00: 00 05-24 05:59 :00 Yes [id number] 40mg TAKE 1 TABLET BY MOUTH IN THE MORNING FOR 30 DAYS [facility] PANTOPRAZOL E 40 mg EC tablet 2022-06 00:00: 00 05-24 05:59 :00 Yes [id number] 40mg TAKE 1 TABLET BY MOUTH IN THE MORNING FOR 30 DAYS [facility] PANTOPRAZOL E 40 mg EC tablet 2022-06 00:00: 00 05-24 05:59 :00 Yes [id number] 40mg TAKE 1 TABLET BY MOUTH IN THE MORNING FOR 30 DAYS [facility] PANTOPRAZOL E 40 mg EC tablet 2022-06 00:00: 00 05-24 05:59 :00 Yes [id number] 40mg TAKE 1 TABLET BY MOUTH IN THE MORNING FOR 30 DAYS [facility] PANTOPRAZOL E 40 mg EC tablet 2022-06 00:00: 00 05-24 05:59 :00 Yes [id number] 40mg TAKE 1 TABLET BY MOUTH IN THE MORNING FOR 30 DAYS [facility] PANTOPRAZOL E 40 mg EC tablet 2022-06 00:00: 00 05-24 05:59 :00 Yes [id number] 40mg TAKE 1 TABLET BY MOUTH IN THE MORNING FOR 30 DAYS [facility] PANTOPRAZOL E 40 mg EC tablet 2022-06 00:00: 00 05-24 05:59 :00 Yes [id number] 40mg TAKE 1 TABLET BY MOUTH IN THE MORNING FOR 30 DAYS [facility] FLUoxetine 10 mg capsule 2022-06 0-20 10:13: 03-30 00:00 :00 No 10mg Take 1 capsule by mouth in the morning. [facility] FLUoxetine 10 mg capsule 2022-06 0-20 10:13: 03-30 00:00 :00 No 10mg Take 1 capsule by mouth in the morning. [facility] FLUoxetine 10 mg capsule 2022-06 0-20 10:13: 03-30 00:00 :00 No 10mg Take 1 capsule by mouth in the morning. [facility] busPIRone 10 mg tablet 2022-06 0 00:00: 00 Yes [id number] 10mg Take 1 tablet by mouth 2 (two) times daily as needed (anxiety). [facility] SERTraline 25 mg tablet 2022-06 0 00:00: 00 Yes [id number] 25mg Take 1 tablet by mouth in the morning. [facility] ondansetron (ZOFRAN) 4 mg tablet 2022-06 0 00:00: 00 Yes [id number] 4mg Take 1 tablet by mouth every 8 (eight) hours as needed for Nausea and Vomiting (N/V). [facility] busPIRone 10 mg tablet 2022-06 0 00:00: 00 Yes [id number] 10mg Take 1 tablet by mouth 2 (two) times daily as needed (anxiety). [facility] SERTraline 25 mg tablet 2022-06 0 00:00: 00 Yes [id number] 25mg Take 1 tablet by mouth in the morning. [facility] ondansetron (ZOFRAN) 4 mg tablet 2022-06 0- 00:00: 00 Yes [id number] 4mg Take 1 tablet by mouth every 8 (eight) hours as needed for Nausea and Vomiting (N/V). [facility] busPIRone 10 mg tablet 2022-06 0-20 00:00: 00 Yes [id number] 10mg Take 1 tablet by mouth 2 (two) times daily as needed (anxiety). [facility] SERTraline 25 mg tablet 2022-06 0-20 00:00: 00 Yes [id number] 25mg Take 1 tablet by mouth in the morning. [facility] ondansetron (ZOFRAN) 4 mg tablet 2022-06 0- 00:00: 00 Yes [id number] 4mg Take 1 tablet by mouth every 8 (eight) hours as needed for Nausea and Vomiting (N/V). [facility] busPIRone 10 mg tablet 2022-06 0- 00:00: 00 Yes [id number] 10mg Take 1 tablet by mouth 2 (two) times daily as needed (anxiety). [facility] SERTraline 25 mg tablet 2022-06 0- 00:00: 00 Yes [id number] 25mg Take 1 tablet by mouth in the morning. [facility] ondansetron (ZOFRAN) 4 mg tablet 2022-06 0- 00:00: 00 Yes [id number] 4mg Take 1 tablet by mouth every 8 (eight) hours as needed for Nausea and Vomiting (N/V). [facility] busPIRone 10 mg tablet 2022-06 0- 00:00: 00 Yes [id number] 10mg Take 1 tablet by mouth 2 (two) times daily as needed (anxiety). [facility] SERTraline 25 mg tablet 2022-06 0- 00:00: 00 Yes [id number] 25mg Take 1 tablet by mouth in the morning. [facility] ondansetron (ZOFRAN) 4 mg tablet 2022-06 0- 00:00: 00 Yes [id number] 4mg Take 1 tablet by mouth every 8 (eight) hours as needed for Nausea and Vomiting (N/V). [facility] busPIRone 10 mg tablet 2022-06 0- 00:00: 00 Yes [id number] 10mg Take 1 tablet by mouth 2 (two) times daily as needed (anxiety). [facility] SERTraline 25 mg tablet 2022-06 0-20 00:00: 00 Yes [id number] 25mg Take 1 tablet by mouth in the morning. [facility] ondansetron (ZOFRAN) 4 mg tablet 2022-06 0 00:00: 00 Yes [id number] 4mg Take 1 tablet by mouth every 8 (eight) hours as needed for Nausea and Vomiting (N/V). [facility] busPIRone 10 mg tablet 2022-06 0 00:00: 00 Yes [id number] 10mg Take 1 tablet by mouth 2 (two) times daily as needed (anxiety). [facility] SERTraline 25 mg tablet 2022-06 00:00: 00 Yes [id number] 25mg Take 1 tablet by mouth in the morning. [facility] ondansetron (ZOFRAN) 4 mg tablet 2022-06 00:00: 00 Yes [id number] 4mg Take 1 tablet by mouth every 8 (eight) hours as needed for Nausea and Vomiting (N/V). [facility] busPIRone 10 mg tablet 2022-06 00:00: 00 Yes [id number] 10mg Take 1 tablet by mouth 2 (two) times daily as needed (anxiety). [facility] SERTraline 25 mg tablet 2022-06 0 00:00: 00 Yes [id number] 25mg Take 1 tablet by mouth in the morning. [facility] busPIRone 10 mg tablet 2022-06 0 00:00: 00 Yes [id number] 10mg Take 1 tablet by mouth 2 (two) times daily as needed (anxiety). [facility] SERTraline 25 mg tablet 2022-06 0 00:00: 00 Yes [id number] 25mg Take 1 tablet by mouth in the morning. [facility] busPIRone 10 mg tablet 2022-06 0 00:00: 00 Yes [id number] 10mg Take 1 tablet by mouth 2 (two) times daily as needed (anxiety). [facility] SERTraline 25 mg tablet 2022-06 0- 00:00: 00 Yes [id number] 25mg Take 1 tablet by mouth in the morning. [facility] SERTraline 25 mg tablet 2022-06 0-20 00:00: 00 Yes [id number] 25mg Take 1 tablet by mouth in the morning. [facility] busPIRone 10 mg tablet 2022-06 0-20 00:00: 00 Yes [id number] 10mg Take 1 tablet by mouth 2 (two) times daily as needed (anxiety). [facility] SERTraline 25 mg tablet 2022-06 0-20 00:00: 00 Yes [id number] 25mg Take 1 tablet by mouth in the morning. [facility] ondansetron (ZOFRAN) 4 mg tablet 2022-06 0-20 00:00: 00 Yes [id number] 4mg Take 1 tablet by mouth every 8 (eight) hours as needed for Nausea and Vomiting (N/V). [facility] busPIRone 10 mg tablet 2022-06 0- 00:00: 00 Yes [id number] 10mg Take 1 tablet by mouth 2 (two) times daily as needed (anxiety). [facility] SERTraline 25 mg tablet 2022-06 0- 00:00: 00 Yes [id number] 25mg Take 1 tablet by mouth in the morning. [facility] ondansetron (ZOFRAN) 4 mg tablet 2022-06 0- 00:00: 00 Yes [id number] 4mg Take 1 tablet by mouth every 8 (eight) hours as needed for Nausea and Vomiting (N/V). [facility] busPIRone 10 mg tablet 2022-06 0-20 00:00: 00 Yes [id number] 10mg Take 1 tablet by mouth 2 (two) times daily as needed (anxiety). [facility] SERTraline 25 mg tablet 2022-06 0-20 00:00: 00 Yes [id number] 25mg Take 1 tablet by mouth in the morning. [facility] ondansetron (ZOFRAN) 4 mg tablet 2022-06 0-20 00:00: 00 Yes [id number] 4mg Take 1 tablet by mouth every 8 (eight) hours as needed for Nausea and Vomiting (N/V). [facility] busPIRone 10 mg tablet 2022-06 0-20 00:00: 00 Yes [id number] 10mg Take 1 tablet by mouth 2 (two) times daily as needed (anxiety). [facility] SERTraline 25 mg tablet 2022-06 0-20 00:00: 00 Yes [id number] 25mg Take 1 tablet by mouth in the morning. [facility] ondansetron (ZOFRAN) 4 mg tablet 2022-06 0- 00:00: 00 Yes [id number] 4mg Take 1 tablet by mouth every 8 (eight) hours as needed for Nausea and Vomiting (N/V). [facility] busPIRone 10 mg tablet 2022-06 0- 00:00: 00 Yes [id number] 10mg Take 1 tablet by mouth 2 (two) times daily as needed (anxiety). [facility] SERTraline 25 mg tablet 2022-06 0- 00:00: 00 Yes [id number] 25mg Take 1 tablet by mouth in the morning. [facility] ondansetron (ZOFRAN) 4 mg tablet 2022-06 0- 00:00: 00 Yes [id number] 4mg Take 1 tablet by mouth every 8 (eight) hours as needed for Nausea and Vomiting (N/V). [facility] busPIRone 10 mg tablet 2022-06 0- 00:00: 00 Yes [id number] 10mg Take 1 tablet by mouth 2 (two) times daily as needed (anxiety). [facility] SERTraline 25 mg tablet 2022-06 0-20 00:00: 00 Yes [id number] 25mg Take 1 tablet by mouth in the morning. [facility] ondansetron (ZOFRAN) 4 mg tablet 2022-06 0-20 00:00: 00 Yes [id number] 4mg Take 1 tablet by mouth every 8 (eight) hours as needed for Nausea and Vomiting (N/V). [facility] SERTraline 25 mg tablet 2022-06 0-20 00:00: 00 06-22 00:00 :00 No [id number] 25mg Take 1 tablet by mouth in the morning. [facility] busPIRone 10 mg tablet 2022-06 00:00: 00 06-05 00:00 :00 No [id number] 10mg Take 1 tablet by mouth 2 (two) times daily as needed (anxiety). [facility] ondansetron (ZOFRAN) 4 mg tablet 2022-06 00:00: 00 05-23 00:00 :00 No [id number] 4mg Take 1 tablet by mouth every 8 (eight) hours as needed for Nausea and Vomiting (N/V). [facility] pantoprazol e 40 mg EC tablet 2022-06 00:00: 00 04-30 05:59 :00 Yes [id number] 40mg Take 1 tablet by mouth in the morning for 30 days. [facility] pantoprazol e 40 mg EC tablet 2022-06 00:00: 00 04-30 05:59 :00 Yes [id number] 40mg Take 1 tablet by mouth in the morning for 30 days. [facility] pantoprazol e 40 mg EC tablet 2022-06 00:00: 00 04-30 05:59 :00 Yes [id number] 40mg Take 1 tablet by mouth in the morning for 30 days. [facility] pantoprazol e 40 mg EC tablet 2022-06 00:00: 00 04-30 05:59 :00 Yes [id number] 40mg Take 1 tablet by mouth in the morning for 30 days. [facility] pantoprazol e 40 mg EC tablet 2022-06 00:00: 00 04-30 05:59 :00 Yes [id number] 40mg Take 1 tablet by mouth in the morning for 30 days. [facility] pantoprazol e 40 mg EC tablet 2022-06 00:00: 00 04-30 05:59 :00 Yes [id number] 40mg Take 1 tablet by mouth in the morning for 30 days. [facility] pantoprazol e 40 mg EC tablet 2022-06 00:00: 00 04-23 00:00 :00 No [id number] 40mg Take 1 tablet by mouth in the morning for 30 days. [facility] levETIRAcet am (KEPPRA) 250 mg tablet 2022-06 0- 00:00: 00 Yes [id number] 250mg Take 1 tablet by mouth in the morning and 1 tablet in the evening. [facility] levETIRAcet am (KEPPRA) 250 mg tablet 2022-06 0 00:00: 00 Yes [id number] 250mg Take 1 tablet by mouth in the morning and 1 tablet in the evening. [facility] levETIRAcet am (KEPPRA) 250 mg tablet 2022-06 0 00:00: 00 Yes [id number] 250mg Take 1 tablet by mouth in the morning and 1 tablet in the evening. [facility] levETIRAcet am (KEPPRA) 250 mg tablet 2022-06 0 00:00: 00 Yes [id number] 250mg Take 1 tablet by mouth in the morning and 1 tablet in the evening. [facility] levETIRAcet am (KEPPRA) 250 mg tablet 2022-06 00:00: 00 Yes [id number] 250mg Take 1 tablet by mouth in the morning and 1 tablet in the evening. [facility] levETIRAcet am (KEPPRA) 250 mg tablet 2022-06 0 00:00: 00 Yes [id number] 250mg Take 1 tablet by mouth in the morning and 1 tablet in the evening. [facility] levETIRAcet am (KEPPRA) 250 mg tablet 2022-06 0 00:00: 00 Yes [id number] 250mg Take 1 tablet by mouth in the morning and 1 tablet in the evening. [facility] levETIRAcet am (KEPPRA) 250 mg tablet 2022-06 0 00:00: 00 Yes [id number] 250mg Take 1 tablet by mouth in the morning and 1 tablet in the evening. [facility] levETIRAcet am (KEPPRA) 250 mg tablet 2022-06 0 00:00: 00 Yes [id number] 250mg Take 1 tablet by mouth in the morning and 1 tablet in the evening. [facility] levETIRAcet am (KEPPRA) 250 mg tablet 2022-06 00:00: 00 Yes [id number] 250mg Take 1 tablet by mouth in the morning and 1 tablet in the evening. [facility] levETIRAcet am (KEPPRA) 250 mg tablet 2022-06 00:00: 00 Yes [id number] 250mg Take 1 tablet by mouth in the morning and 1 tablet in the evening. [facility] levETIRAcet am (KEPPRA) 250 mg tablet 2022-06 00:00: 00 Yes [id number] 250mg Take 1 tablet by mouth in the morning and 1 tablet in the evening. [facility] levETIRAcet am (KEPPRA) 250 mg tablet 2022-06 00:00: 00 Yes [id number] 250mg Take 1 tablet by mouth in the morning and 1 tablet in the evening. [facility] levETIRAcet am (KEPPRA) 250 mg tablet 2022-06 00:00: 00 Yes [id number] 250mg Take 1 tablet by mouth in the morning and 1 tablet in the evening. [facility] levETIRAcet am (KEPPRA) 250 mg tablet 2022-06 00:00: 00 Yes [id number] 250mg Take 1 tablet by mouth in the morning and 1 tablet in the evening. [facility] ondansetron (ZOFRAN) 4 mg tablet 2022-06 00:00: 00 Yes [id number] 4mg Take 1 tablet by mouth every 8 (eight) hours as needed for Nausea and Vomiting (N/V). [facility] levETIRAcet am (KEPPRA) 250 mg tablet 2022-06 00:00: 00 Yes [id number] 250mg Take 1 tablet by mouth in the morning and 1 tablet in the evening. [facility] levETIRAcet am (KEPPRA) 250 mg tablet 2022-06 00:00: 00 Yes [id number] 250mg Take 1 tablet by mouth in the morning and 1 tablet in the evening. [facility] levETIRAcet am (KEPPRA) 250 mg tablet 2022-06 0 00:00: 00 Yes [id number] 250mg Take 1 tablet by mouth in the morning and 1 tablet in the evening. [facility] levETIRAcet am (KEPPRA) 250 mg tablet 2022-06 0 00:00: 00 Yes [id number] 250mg Take 1 tablet by mouth in the morning and 1 tablet in the evening. [facility] levETIRAcet am (KEPPRA) 250 mg tablet 2022-06 00:00: 00 Yes [id number] 250mg Take 1 tablet by mouth in the morning and 1 tablet in the evening. [facility] levETIRAcet am (KEPPRA) 250 mg tablet 2022-06 00:00: 00 Yes [id number] 250mg Take 1 tablet by mouth in the morning and 1 tablet in the evening. [facility] levETIRAcet am (KEPPRA) 250 mg tablet 2022-06 00:00: 00 Yes [id number] 250mg Take 1 tablet by mouth in the morning and 1 tablet in the evening. [facility] ondansetron (ZOFRAN) 4 mg tablet 2022-06 00:00: 00 03-30 00:00 :00 No [id number] 4mg Take 1 tablet by mouth every 8 (eight) hours as needed for Nausea and Vomiting (N/V). [facility] ondansetron (ZOFRAN) 4 mg tablet 2022-06 00:00: 00 03-30 00:00 :00 No [id number] 4mg Take 1 tablet by mouth every 8 (eight) hours as needed for Nausea and Vomiting (N/V). [facility] ondansetron (ZOFRAN) 4 mg tablet 2022-06 0 00:00: 00 03-30 00:00 :00 No [id number] 4mg Take 1 tablet by mouth every 8 (eight) hours as needed for Nausea and Vomiting (N/V). [facility] amitriptyli ne 25 mg tablet 2022-06 0-05 00:00: 00 Yes 25mg Take 1 tablet by mouth at bedtime. [facility] amitriptyli ne 25 mg tablet 2022-06 0-05 00:00: 00 Yes 25mg Take 1 tablet by mouth at bedtime. [facility] amitriptyli ne 25 mg tablet 2022-06 0-05 00:00: 00 Yes 25mg Take 1 tablet by mouth at bedtime. [facility] amitriptyli ne 25 mg tablet 2022-06 0-05 00:00: 00 Yes 25mg Take 1 tablet by mouth at bedtime. [facility] amitriptyli ne 25 mg tablet 2022-06 0- 00:00: 00 Yes 25mg Take 1 tablet by mouth at bedtime. [facility] amitriptyli ne 25 mg tablet 2022-06 0- 00:00: 00 Yes 25mg Take 1 tablet by mouth at bedtime. [facility] amitriptyli ne 25 mg tablet 2022-06 005 00:00: 00 Yes 25mg Take 1 tablet by mouth at bedtime. [facility] amitriptyli ne 25 mg tablet 2022-06 005 00:00: 00 Yes 25mg Take 1 tablet by mouth at bedtime. [facility] amitriptyli ne 25 mg tablet 2022-06 0-05 00:00: 00 Yes 25mg Take 1 tablet by mouth at bedtime. [facility] amitriptyli ne 25 mg tablet 2022-06 0-05 00:00: 00 Yes 25mg Take 1 tablet by mouth at bedtime. [facility] amitriptyli ne 25 mg tablet 2022-06 0-05 00:00: 00 Yes 25mg Take 1 tablet by mouth at bedtime. [facility] amitriptyli ne 25 mg tablet 2022-06 0-05 00:00: 00 Yes 25mg Take 1 tablet by mouth at bedtime. [facility] amitriptyli ne 25 mg tablet 2022-06 0-05 00:00: 00 Yes 25mg Take 1 tablet by mouth at bedtime. [facility] amitriptyli ne 25 mg tablet 2022-06 0 00:00: 00 Yes 25mg Take 1 tablet by mouth at bedtime. [facility] amitriptyli ne 25 mg tablet 2022-06 0- 00:00: 00 Yes 25mg Take 1 tablet by mouth at bedtime. [facility] amitriptyli ne 25 mg tablet 2022-06 0- 00:00: 00 Yes 25mg Take 1 tablet by mouth at bedtime. [facility] amitriptyli ne 25 mg tablet 2022-06 0 00:00: 00 Yes 25mg Take 1 tablet by mouth at bedtime. [facility] amitriptyli ne 25 mg tablet 2022-06 0 00:00: 00 Yes 25mg Take 1 tablet by mouth at bedtime. [facility] amitriptyli ne 25 mg tablet 2022-06 0 00:00: 00 Yes 25mg Take 1 tablet by mouth at bedtime. [facility] amitriptyli ne 25 mg tablet 2022-06 0 00:00: 00 Yes 25mg Take 1 tablet by mouth at bedtime. [facility] ondansetron (ZOFRAN) 4 mg tablet 02-08 00:00: 00 Yes [id number] 4mg Take 1 tablet by mouth every 8 (eight) hours as needed for Nausea and Vomiting (N/V). [facility] ondansetron (ZOFRAN) 4 mg tablet 02-08 00:00: 00 Yes [id number] 4mg Take 1 tablet by mouth every 8 (eight) hours as needed for Nausea and Vomiting (N/V). [facility] ondansetron (ZOFRAN) 4 mg tablet 02-08 00:00: 00 Yes [id number] 4mg Take 1 tablet by mouth every 8 (eight) hours as needed for Nausea and Vomiting (N/V). [facility] ondansetron (ZOFRAN) 4 mg tablet 02-08 00:00: 00 Yes [id number] 4mg Take 1 tablet by mouth every 8 (eight) hours as needed for Nausea and Vomiting (N/V). [facility] ondansetron (ZOFRAN) 4 mg tablet 02-08 00:00: 00 Yes [id number] 4mg Take 1 tablet by mouth every 8 (eight) hours as needed for Nausea and Vomiting (N/V). [facility] ondansetron (ZOFRAN) 4 mg tablet 02-08 00:00: 00 Yes [id number] 4mg Take 1 tablet by mouth every 8 (eight) hours as needed for Nausea and Vomiting (N/V). [facility] ondansetron (ZOFRAN) 4 mg tablet 02-08 00:00: 00 03-20 00:00 :00 No [id number] 4mg Take 1 tablet by mouth every 8 (eight) hours as needed for Nausea and Vomiting (N/V). [facility] ondansetron (ZOFRAN) 4 mg tablet 01-17 00:00: 00 Yes [id number] 4mg Take 1 tablet by mouth every 8 (eight) hours as needed for Nausea and Vomiting (N/V). [facility] ondansetron (ZOFRAN) 4 mg tablet 01-17 00:00: 00 Yes [id number] 4mg Take 1 tablet by mouth every 8 (eight) hours as needed for Nausea and Vomiting (N/V). [facility] ondansetron (ZOFRAN) 4 mg tablet 01-17 00:00: 00 Yes [id number] 4mg Take 1 tablet by mouth every 8 (eight) hours as needed for Nausea and Vomiting (N/V). [facility] ondansetron (ZOFRAN) 4 mg tablet 01-17 00:00: 00 02-08 00:00 :00 No [id number] 4mg Take 1 tablet by mouth every 8 (eight) hours as needed for Nausea and Vomiting (N/V). [facility] L.acid/L.ca sei/B.bif/B .willy/FOS (PROBIOTIC BLEND ORAL) 12-29 16:09: 05 Yes 1{capsu le} Take 1 capsule by mouth in the morning. [facility] pyridoxine, vitamin B6, (VITAMIN B-6) 50 mg capsule 12-29 16:09: 05 Yes 50mg Take 1 capsule by mouth in the morning. [facility] L.acid/L.ca sei/B.bif/B .willy/FOS (PROBIOTIC BLEND ORAL) 12-29 16:09: 05 Yes 1{capsu le} Take 1 capsule by mouth in the morning. [facility] pyridoxine, vitamin B6, (VITAMIN B-6) 50 mg capsule 12-29 16:09: 05 Yes 50mg Take 1 capsule by mouth in the morning. [facility] L.acid/L.ca sei/B.bif/B .willy/FOS (PROBIOTIC BLEND ORAL) 12-29 16:09: 05 Yes 1{capsu le} Take 1 capsule by mouth in the morning. [facility] pyridoxine, vitamin B6, (VITAMIN B-6) 50 mg capsule 12-29 16:09: 05 Yes 50mg Take 1 capsule by mouth in the morning. [facility] L.acid/L.ca sei/B.bif/B .willy/FOS (PROBIOTIC BLEND ORAL) 12-29 16:09: 05 Yes 1{capsu le} Take 1 capsule by mouth in the morning. [facility] pyridoxine, vitamin B6, (VITAMIN B-6) 50 mg capsule 12-29 16:09: 05 Yes 50mg Take 1 capsule by mouth in the morning. [facility] L.acid/L.ca sei/B.bif/B .willy/FOS (PROBIOTIC BLEND ORAL) 12-29 16:09: 05 Yes 1{capsu le} Take 1 capsule by mouth in the morning. [facility] pyridoxine, vitamin B6, (VITAMIN B-6) 50 mg capsule 12-29 16:09: 05 Yes 50mg Take 1 capsule by mouth in the morning. [facility] L.acid/L.ca sei/B.bif/B .willy/FOS (PROBIOTIC BLEND ORAL) 12-29 16:09: 05 Yes 1{capsu le} Take 1 capsule by mouth in the morning. [facility] pyridoxine, vitamin B6, (VITAMIN B-6) 50 mg capsule 12-29 16:09: 05 Yes 50mg Take 1 capsule by mouth in the morning. [facility] L.acid/L.ca sei/B.bif/B .willy/FOS (PROBIOTIC BLEND ORAL) 12-29 16:09: 05 Yes 1{capsu le} Take 1 capsule by mouth in the morning. [facility] pyridoxine, vitamin B6, (VITAMIN B-6) 50 mg capsule 12-29 16:09: 05 Yes 50mg Take 1 capsule by mouth in the morning. [facility] L.acid/L.ca sei/B.bif/B .willy/FOS (PROBIOTIC BLEND ORAL) 12-29 16:09: 05 Yes 1{capsu le} Take 1 capsule by mouth in the morning. [facility] pyridoxine, vitamin B6, (VITAMIN B-6) 50 mg capsule 12-29 16:09: 05 Yes 50mg Take 1 capsule by mouth in the morning. [facility] L.acid/L.ca sei/B.bif/B .willy/FOS (PROBIOTIC BLEND ORAL) 12-29 16:09: 05 Yes 1{capsu le} Take 1 capsule by mouth in the morning. [facility] pyridoxine, vitamin B6, (VITAMIN B-6) 50 mg capsule 12-29 16:09: 05 Yes 50mg Take 1 capsule by mouth in the morning. [facility] L.acid/L.ca sei/B.bif/B .willy/FOS (PROBIOTIC BLEND ORAL) 12-29 16:09: 05 Yes 1{capsu le} Take 1 capsule by mouth in the morning. [facility] pyridoxine, vitamin B6, (VITAMIN B-6) 50 mg capsule 12-29 16:09: 05 Yes 50mg Take 1 capsule by mouth in the morning. [facility] L.acid/L.ca sei/B.bif/B .willy/FOS (PROBIOTIC BLEND ORAL) 12-29 16:09: 05 Yes 1{capsu le} Take 1 capsule by mouth in the morning. [facility] pyridoxine, vitamin B6, (VITAMIN B-6) 50 mg capsule 12-29 16:09: 05 Yes 50mg Take 1 capsule by mouth in the morning. [facility] L.acid/L.ca sei/B.bif/B .willy/FOS (PROBIOTIC BLEND ORAL) 12-29 16:09: 05 Yes 1{capsu le} Take 1 capsule by mouth in the morning. [facility] pyridoxine, vitamin B6, (VITAMIN B-6) 50 mg capsule 12-29 16:09: 05 Yes 50mg Take 1 capsule by mouth in the morning. [facility] L.acid/L.ca sei/B.bif/B .willy/FOS (PROBIOTIC BLEND ORAL) 12-29 16:09: 05 Yes 1{capsu le} Take 1 capsule by mouth in the morning. [facility] pyridoxine, vitamin B6, (VITAMIN B-6) 50 mg capsule 12-29 16:09: 05 Yes 50mg Take 1 capsule by mouth in the morning. [facility] L.acid/L.ca sei/B.bif/B .willy/FOS (PROBIOTIC BLEND ORAL) 12-29 16:09: 05 Yes 1{capsu le} Take 1 capsule by mouth in the morning. [facility] pyridoxine, vitamin B6, (VITAMIN B-6) 50 mg capsule 12-29 16:09: 05 Yes 50mg Take 1 capsule by mouth in the morning. [facility] L.acid/L.ca sei/B.bif/B .willy/FOS (PROBIOTIC BLEND ORAL) 12-29 16:09: 05 Yes 1{capsu le} Take 1 capsule by mouth in the morning. [facility] pyridoxine, vitamin B6, (VITAMIN B-6) 50 mg capsule 12-29 16:09: 05 Yes 50mg Take 1 capsule by mouth in the morning. [facility] L.acid/L.ca sei/B.bif/B .willy/FOS (PROBIOTIC BLEND ORAL) 12-29 16:09: 05 Yes 1{capsu le} Take 1 capsule by mouth in the morning. [facility] pyridoxine, vitamin B6, (VITAMIN B-6) 50 mg capsule 12-29 16:09: 05 Yes 50mg Take 1 capsule by mouth in the morning. [facility] L.acid/L.ca sei/B.bif/B .willy/FOS (PROBIOTIC BLEND ORAL) 12-29 16:09: 05 Yes 1{capsu le} Take 1 capsule by mouth in the morning. [facility] pyridoxine, vitamin B6, (VITAMIN B-6) 50 mg capsule 12-29 16:09: 05 Yes 50mg Take 1 capsule by mouth in the morning. [facility] L.acid/L.ca sei/B.bif/B .willy/FOS (PROBIOTIC BLEND ORAL) 12-29 16:09: 05 Yes 1{capsu le} Take 1 capsule by mouth in the morning. [facility] pyridoxine, vitamin B6, (VITAMIN B-6) 50 mg capsule 12-29 16:09: 05 Yes 50mg Take 1 capsule by mouth in the morning. [facility] L.acid/L.ca sei/B.bif/B .willy/FOS (PROBIOTIC BLEND ORAL) 12-29 16:09: 05 Yes 1{capsu le} Take 1 capsule by mouth in the morning. [facility] pyridoxine, vitamin B6, (VITAMIN B-6) 50 mg capsule 12-29 16:09: 05 Yes 50mg Take 1 capsule by mouth in the morning. [facility] L.acid/L.ca sei/B.bif/B .willy/FOS (PROBIOTIC BLEND ORAL) 12-29 16:09: 05 Yes 1{capsu le} Take 1 capsule by mouth in the morning. [facility] pyridoxine, vitamin B6, (VITAMIN B-6) 50 mg capsule 12-29 16:09: 05 Yes 50mg Take 1 capsule by mouth in the morning. [facility] L.acid/L.ca sei/B.bif/B .willy/FOS (PROBIOTIC BLEND ORAL) 12-29 16:09: 05 Yes 1{capsu le} Take 1 capsule by mouth in the morning. [facility] pyridoxine, vitamin B6, (VITAMIN B-6) 50 mg capsule 12-29 16:09: 05 Yes 50mg Take 1 capsule by mouth in the morning. [facility] L.acid/L.ca sei/B.bif/B .willy/FOS (PROBIOTIC BLEND ORAL) 12-29 16:09: 05 Yes 1{capsu le} Take 1 capsule by mouth in the morning. [facility] pyridoxine, vitamin B6, (VITAMIN B-6) 50 mg capsule 12-29 16:09: 05 Yes 50mg Take 1 capsule by mouth in the morning. [facility] L.acid/L.ca sei/B.bif/B .willy/FOS (PROBIOTIC BLEND ORAL) 12-29 16:09: 05 Yes 1{capsu le} Take 1 capsule by mouth in the morning. [facility] pyridoxine, vitamin B6, (VITAMIN B-6) 50 mg capsule 12-29 16:09: 05 Yes 50mg Take 1 capsule by mouth in the morning. [facility] L.acid/L.ca sei/B.bif/B .willy/FOS (PROBIOTIC BLEND ORAL) 12-29 16:09: 05 Yes 1{capsu le} Take 1 capsule by mouth in the morning. [facility] pyridoxine, vitamin B6, (VITAMIN B-6) 50 mg capsule 12-29 16:09: 05 Yes 50mg Take 1 capsule by mouth in the morning. [facility] L.acid/L.ca sei/B.bif/B .willy/FOS (PROBIOTIC BLEND ORAL) 12-29 16:09: 05 Yes 1{capsu le} Take 1 capsule by mouth in the morning. [facility] pyridoxine, vitamin B6, (VITAMIN B-6) 50 mg capsule 12-29 16:09: 05 Yes 50mg Take 1 capsule by mouth in the morning. [facility] L.acid/L.ca sei/B.bif/B .willy/FOS (PROBIOTIC BLEND ORAL) 12-29 16:09: 05 Yes 1{capsu le} Take 1 capsule by mouth in the morning. [facility] pyridoxine, vitamin B6, (VITAMIN B-6) 50 mg capsule 12-29 16:09: 05 Yes 50mg Take 1 capsule by mouth in the morning. [facility] L.acid/L.ca sei/B.bif/B .willy/FOS (PROBIOTIC BLEND ORAL) 12-29 16:09: 05 Yes 1{capsu le} Take 1 capsule by mouth in the morning. [facility] pyridoxine, vitamin B6, (VITAMIN B-6) 50 mg capsule 12-29 16:09: 05 Yes 50mg Take 1 capsule by mouth in the morning. [facility] L.acid/L.ca sei/B.bif/B .willy/FOS (PROBIOTIC BLEND ORAL) 12-29 16:09: 05 Yes 1{capsu le} Take 1 capsule by mouth in the morning. [facility] pyridoxine, vitamin B6, (VITAMIN B-6) 50 mg capsule 12-29 16:09: 05 Yes 50mg Take 1 capsule by mouth in the morning. [facility] L.acid/L.ca sei/B.bif/B .willy/FOS (PROBIOTIC BLEND ORAL) 12-29 16:09: 05 Yes 1{capsu le} Take 1 capsule by mouth in the morning. [facility] pyridoxine, vitamin B6, (VITAMIN B-6) 50 mg capsule 12-29 16:09: 05 Yes 50mg Take 1 capsule by mouth in the morning. [facility] L.acid/L.ca sei/B.bif/B .willy/FOS (PROBIOTIC BLEND ORAL) 12-29 16:09: 05 Yes 1{capsu le} Take 1 capsule by mouth in the morning. [facility] pyridoxine, vitamin B6, (VITAMIN B-6) 50 mg capsule 12-29 16:09: 05 Yes 50mg Take 1 capsule by mouth in the morning. [facility] L.acid/L.ca sei/B.bif/B .willy/FOS (PROBIOTIC BLEND ORAL) 12-29 16:09: 05 Yes 1{capsu le} Take 1 capsule by mouth in the morning. [facility] pyridoxine, vitamin B6, (VITAMIN B-6) 50 mg capsule 12-29 16:09: 05 Yes 50mg Take 1 capsule by mouth in the morning. [facility] L.acid/L.ca sei/B.bif/B .willy/FOS (PROBIOTIC BLEND ORAL) 12-29 16:09: 05 Yes 1{capsu le} Take 1 capsule by mouth in the morning. [facility] pyridoxine, vitamin B6, (VITAMIN B-6) 50 mg capsule 12-29 16:09: 05 Yes 50mg Take 1 capsule by mouth in the morning. [facility] L.acid/L.ca sei/B.bif/B .willy/FOS (PROBIOTIC BLEND ORAL) 12-29 16:09: 05 Yes 1{capsu le} Take 1 capsule by mouth in the morning. [facility] pyridoxine, vitamin B6, (VITAMIN B-6) 50 mg capsule 12-29 16:09: 05 Yes 50mg Take 1 capsule by mouth in the morning. [facility] L.acid/L.ca sei/B.bif/B .willy/FOS (PROBIOTIC BLEND ORAL) 12-29 16:09: 05 Yes 1{capsu le} Take 1 capsule by mouth in the morning. [facility] pyridoxine, vitamin B6, (VITAMIN B-6) 50 mg capsule 12-29 16:09: 05 Yes 50mg Take 1 capsule by mouth in the morning. [facility] L.acid/L.ca sei/B.bif/B .willy/FOS (PROBIOTIC BLEND ORAL) 12-29 16:09: 05 Yes 1{capsu le} Take 1 capsule by mouth in the morning. [facility] pyridoxine, vitamin B6, (VITAMIN B-6) 50 mg capsule 12-29 16:09: 05 Yes 50mg Take 1 capsule by mouth in the morning. [facility] ondansetron (ZOFRAN) 4 mg tablet 12-29 00:00: 00 Yes [id number] 4mg Take 1 tablet by mouth every 8 (eight) hours as needed for Nausea and Vomiting (N/V). [facility] ondansetron (ZOFRAN) 4 mg tablet 12-29 00:00: 00 Yes [id number] 4mg Take 1 tablet by mouth every 8 (eight) hours as needed for Nausea and Vomiting (N/V). [facility] ondansetron (ZOFRAN) 4 mg tablet 12-29 00:00: 00 01-17 00:00 :00 No [id number] 4mg Take 1 tablet by mouth every 8 (eight) hours as needed for Nausea and Vomiting (N/V). [facility] FLUoxetine 10 mg capsule 12-27 13:56: 46 Yes 10mg Take 1 capsule by mouth in the morning. [facility] FLUoxetine 10 mg capsule 12-27 13:56: 46 Yes 10mg Take 1 capsule by mouth in the morning. [facility] FLUoxetine 10 mg capsule 12-27 13:56: 46 Yes 10mg Take 1 capsule by mouth in the morning. [facility] FLUoxetine 10 mg capsule 2023-0 7-19 13:56: 46 Yes 10mg Take 1 capsule by mouth in the morning. [facility] FLUoxetine 10 mg capsule 2023-0 7-19 13:56: 46 Yes 10mg Take 1 capsule by mouth in the morning. [facility] FLUoxetine 10 mg capsule 2023-0 7-19 13:56: 46 Yes 10mg Take 1 capsule by mouth in the morning. [facility] FLUoxetine 10 mg capsule 2023-0 7-19 13:56: 46 Yes 10mg Take 1 capsule by mouth in the morning. [facility] FLUoxetine 10 mg capsule 2023-0 7-19 13:56: 46 Yes 10mg Take 1 capsule by mouth in the morning. [facility] FLUoxetine 10 mg capsule 2023-0 7-19 13:56: 46 Yes 10mg Take 1 capsule by mouth in the morning. [facility] FLUoxetine 10 mg capsule 2023-0 7-19 13:56: 46 Yes 10mg Take 1 capsule by mouth in the morning. [facility] FLUoxetine 10 mg capsule 2023-0 7-19 13:56: 46 Yes 10mg Take 1 capsule by mouth in the morning. [facility] FLUoxetine 10 mg capsule 3-0 7-19 13:56: 46 Yes 10mg Take 1 capsule by mouth in the morning. [facility] FLUoxetine 10 mg capsule 2023-0 7-19 13:56: 46 Yes 10mg Take 1 capsule by mouth in the morning. [facility] FLUoxetine 10 mg capsule 2023-0 7-19 13:56: 46 Yes 10mg Take 1 capsule by mouth in the morning. [facility] FLUoxetine 10 mg capsule 2023-0 7-19 13:56: 46 Yes 10mg Take 1 capsule by mouth in the morning. [facility] FLUoxetine 10 mg capsule 2023-0 7-19 13:56: 46 Yes 10mg Take 1 capsule by mouth in the morning. [facility] FLUoxetine 10 mg capsule 2023-0 7-19 13:56: 46 Yes 10mg Take 1 capsule by mouth in the morning. [facility] FLUoxetine 10 mg capsule 2023-0 7-19 13:56: 46 Yes 10mg Take 1 capsule by mouth in the morning. [facility] FLUoxetine 10 mg capsule 0 12-27 13:56: 46 Yes 10mg Take 1 capsule by mouth in the morning. [facility] FLUoxetine 10 mg capsule 12-27 13:56: 46 Yes 10mg Take 1 capsule by mouth in the morning. [facility] FLUoxetine 10 mg capsule 12-27 13:56: 46 Yes 10mg Take 1 capsule by mouth in the morning. [facility] FLUoxetine 10 mg capsule 12-27 13:56: 46 Yes 10mg Take 1 capsule by mouth in the morning. [facility] levETIRAcet am (KEPPRA) 250 mg tablet 12-13 00:00: 00 Yes [id number] 250mg Take 1 tablet by mouth in the morning and 1 tablet in the evening. [facility] levETIRAcet am (KEPPRA) 250 mg tablet 12-13 00:00: 00 Yes [id number] 250mg Take 1 tablet by mouth in the morning and 1 tablet in the evening. [facility] levETIRAcet am (KEPPRA) 250 mg tablet 12-13 00:00: 00 Yes [id number] 250mg Take 1 tablet by mouth in the morning and 1 tablet in the evening. [facility] levETIRAcet am (KEPPRA) 250 mg tablet 0 12-13 00:00: 00 Yes [id number] 250mg Take 1 tablet by mouth in the morning and 1 tablet in the evening. [facility] levETIRAcet am (KEPPRA) 250 mg tablet 2022-0 12-13 00:00: 00 Yes [id number] 250mg Take 1 tablet by mouth in the morning and 1 tablet in the evening. [facility] levETIRAcet am (KEPPRA) 250 mg tablet 2022-0 12-13 00:00: 00 Yes [id number] 250mg Take 1 tablet by mouth in the morning and 1 tablet in the evening. [facility] levETIRAcet am (KEPPRA) 250 mg tablet 12-13 00:00: 00 Yes [id number] 250mg Take 1 tablet by mouth in the morning and 1 tablet in the evening. [facility] levETIRAcet am (KEPPRA) 250 mg tablet 12-13 00:00: 00 Yes [id number] 250mg Take 1 tablet by mouth in the morning and 1 tablet in the evening. [facility] levETIRAcet am (KEPPRA) 250 mg tablet 12-13 00:00: 00 Yes [id number] 250mg Take 1 tablet by mouth in the morning and 1 tablet in the evening. [facility] levETIRAcet am (KEPPRA) 250 mg tablet 12-13 00:00: 00 Yes [id number] 250mg Take 1 tablet by mouth in the morning and 1 tablet in the evening. [facility] levETIRAcet am (KEPPRA) 250 mg tablet 12-13 00:00: 00 Yes [id number] 250mg Take 1 tablet by mouth in the morning and 1 tablet in the evening. [facility] levETIRAcet am (KEPPRA) 250 mg tablet 12-13 00:00: 00 Yes [id number] 250mg Take 1 tablet by mouth in the morning and 1 tablet in the evening. [facility] levETIRAcet am (KEPPRA) 250 mg tablet 12-13 00:00: 00 Yes [id number] 250mg Take 1 tablet by mouth in the morning and 1 tablet in the evening. [facility] levETIRAcet am (KEPPRA) 250 mg tablet 0 12-13 00:00: 00 Yes [id number] 250mg Take 1 tablet by mouth in the morning and 1 tablet in the evening. [facility] levETIRAcet am (KEPPRA) 250 mg tablet 0 12-13 00:00: 00 Yes [id number] 250mg Take 1 tablet by mouth in the morning and 1 tablet in the evening. [facility] levETIRAcet am (KEPPRA) 250 mg tablet 12-13 00:00: 00 Yes [id number] 250mg Take 1 tablet by mouth in the morning and 1 tablet in the evening. [facility] levETIRAcet am (KEPPRA) 250 mg tablet 0 12-13 00:00: 00 Yes [id number] 250mg Take 1 tablet by mouth in the morning and 1 tablet in the evening. [facility] levETIRAcet am (KEPPRA) 250 mg tablet 0 12-13 00:00: 00 Yes [id number] 250mg Take 1 tablet by mouth in the morning and 1 tablet in the evening. [facility] levETIRAcet am (KEPPRA) 250 mg tablet 0 12-13 00:00: 00 Yes [id number] 250mg Take 1 tablet by mouth in the morning and 1 tablet in the evening. [facility] levETIRAcet am (KEPPRA) 250 mg tablet 0 12-13 00:00: 00 Yes [id number] 250mg Take 1 tablet by mouth in the morning and 1 tablet in the evening. [facility] levETIRAcet am (KEPPRA) 250 mg tablet 0 05 00:00: 00 10-10 00:00 :00 No [id number] 250mg Take 1 tablet by mouth in the morning and 1 tablet in the evening. [facility] zonisamide 100 mg capsule 2022-0 - 00:00: 00 Yes [id number] 300mg Take 3 capsules by mouth in the morning. [facility] zonisamide 100 mg capsule 2022-0 -22 00:00: 00 Yes [id number] 300mg Take 3 capsules by mouth in the morning. [facility] zonisamide 100 mg capsule 3-0 -22 00:00: 00 Yes [id number] 300mg Take 3 capsules by mouth in the morning. [facility] zonisamide 100 mg capsule 3-0 5-22 00:00: 00 Yes [id number] 300mg Take 3 capsules by mouth in the morning. [facility] zonisamide 100 mg capsule 3-0 5-22 00:00: 00 Yes [id number] 300mg Take 3 capsules by mouth in the morning. [facility] zonisamide 100 mg capsule 3-0 22 00:00: 00 Yes [id number] 300mg Take 3 capsules by mouth in the morning. [facility] zonisamide 100 mg capsule 3-0 -22 00:00: 00 Yes [id number] 300mg Take 3 capsules by mouth in the morning. [facility] levETIRAcet am (KEPPRA) 250 mg tablet 2022-0 - 00:00: 00 Yes [id number] 250mg Take 1 tablet by mouth in the morning. [facility] zonisamide 100 mg capsule 3-0 - 00:00: 00 Yes [id number] 300mg Take 3 capsules by mouth in the morning. [facility] levETIRAcet am (KEPPRA) 250 mg tablet 2022-0 - 00:00: 00 Yes [id number] 250mg Take 1 tablet by mouth in the morning. [facility] zonisamide 100 mg capsule 3-0 - 00:00: 00 Yes [id number] 300mg Take 3 capsules by mouth in the morning. [facility] levETIRAcet am (KEPPRA) 250 mg tablet 2022-0 10-30 00:00: 00 Yes [id number] 250mg Take 1 tablet by mouth in the morning. [facility] zonisamide 100 mg capsule 3-0 -22 00:00: 00 Yes [id number] 300mg Take 3 capsules by mouth in the morning. [facility] zonisamide 100 mg capsule 3-0 -22 00:00: 00 Yes [id number] 300mg Take 3 capsules by mouth in the morning. [facility] zonisamide 100 mg capsule 3-0 -22 00:00: 00 Yes [id number] 300mg Take 3 capsules by mouth in the morning. [facility] zonisamide 100 mg capsule 3-0 -22 00:00: 00 Yes [id number] 300mg Take 3 capsules by mouth in the morning. [facility] zonisamide 100 mg capsule 3-0 -22 00:00: 00 Yes [id number] 300mg Take 3 capsules by mouth in the morning. [facility] zonisamide 100 mg capsule 3-0 -22 00:00: 00 Yes [id number] 300mg Take 3 capsules by mouth in the morning. [facility] zonisamide 100 mg capsule 2023-0 -22 00:00: 00 Yes [id number] 300mg Take 3 capsules by mouth in the morning. [facility] zonisamide 100 mg capsule 2023-0 -22 00:00: 00 Yes [id number] 300mg Take 3 capsules by mouth in the morning. [facility] zonisamide 100 mg capsule 3-0 -22 00:00: 00 Yes [id number] 300mg Take 3 capsules by mouth in the morning. [facility] zonisamide 100 mg capsule 3-0 - 00:00: 00 Yes [id number] 300mg Take 3 capsules by mouth in the morning. [facility] zonisamide 100 mg capsule 3-0 -22 00:00: 00 Yes [id number] 300mg Take 3 capsules by mouth in the morning. [facility] zonisamide 100 mg capsule 3-0 - 00:00: 00 Yes [id number] 300mg Take 3 capsules by mouth in the morning. [facility] zonisamide 100 mg capsule 3-0 -22 00:00: 00 Yes [id number] 300mg Take 3 capsules by mouth in the morning. [facility] zonisamide 100 mg capsule 3-0 -22 00:00: 00 Yes [id number] 300mg Take 3 capsules by mouth in the morning. [facility] zonisamide 100 mg capsule 3-0 -22 00:00: 00 Yes [id number] 300mg Take 3 capsules by mouth in the morning. [facility] zonisamide 100 mg capsule 3-0 -22 00:00: 00 Yes [id number] 300mg Take 3 capsules by mouth in the morning. [facility] zonisamide 100 mg capsule 3-0 -22 00:00: 00 Yes [id number] 300mg Take 3 capsules by mouth in the morning. [facility] zonisamide 100 mg capsule 3-0 -22 00:00: 00 Yes [id number] 300mg Take 3 capsules by mouth in the morning. [facility] zonisamide 100 mg capsule 3-0 5-22 00:00: 00 Yes [id number] 300mg Take 3 capsules by mouth in the morning. [facility] zonisamide 100 mg capsule 3-0 5-22 00:00: 00 Yes [id number] 300mg Take 3 capsules by mouth in the morning. [facility] zonisamide 100 mg capsule 3-0 -22 00:00: 00 Yes [id number] 300mg Take 3 capsules by mouth in the morning. [facility] zonisamide 100 mg capsule 3-0 5-22 00:00: 00 Yes [id number] 300mg Take 3 capsules by mouth in the morning. [facility] zonisamide 100 mg capsule 3-0 -22 00:00: 00 Yes [id number] 300mg Take 3 capsules by mouth in the morning. [facility] zonisamide 100 mg capsule 3-0 -22 00:00: 00 Yes [id number] 300mg Take 3 capsules by mouth in the morning. [facility] zonisamide 100 mg capsule 3-0 -22 00:00: 00 Yes [id number] 300mg Take 3 capsules by mouth in the morning. [facility] zonisamide 100 mg capsule 3-0 -22 00:00: 00 Yes [id number] 300mg Take 3 capsules by mouth in the morning. [facility] zonisamide 100 mg capsule 3-0 -22 00:00: 00 Yes [id number] 300mg Take 3 capsules by mouth in the morning. [facility] zonisamide 100 mg capsule 3-0 5-22 00:00: 00 Yes [id number] 300mg Take 3 capsules by mouth in the morning. [facility] zonisamide 100 mg capsule 2023-0 5-22 00:00: 00 Yes [id number] 300mg Take 3 capsules by mouth in the morning. [facility] zonisamide 100 mg capsule 2022-0 10-30 00:00: 00 05-04 00:00 :00 No [id number] 300mg Take 3 capsules by mouth in the morning. [facility] levETIRAcet am (KEPPRA) 250 mg tablet 0 10-30 00:00: 00 12-13 00:00 :00 No [id number] 250mg Take 1 tablet by mouth in the morning. [facility] zonisamide 100 mg capsule 2022-0 08-07 00:00: 00 10-07 04:59 :00 No [id number] 400mg Take 4 capsules by mouth in the morning for 60 days. [facility] zonisamide 100 mg capsule 2022-0 08-07 00:00: 00 10-07 04:59 :00 No [id number] 400mg Take 4 capsules by mouth in the morning for 60 days. [facility] levETIRAcet am (KEPPRA) 500 mg tablet 0 2- 00:00: 00 Yes [id number] 500mg Take 1 tablet by mouth in the morning and 1 tablet in the evening. [facility] levETIRAcet am (KEPPRA) 500 mg tablet 0 - 00:00: 00 Yes [id number] 500mg Take 1 tablet by mouth in the morning and 1 tablet in the evening. [facility] levETIRAcet am (KEPPRA) 500 mg tablet 2022-0 2- 00:00: 00 Yes [id number] 500mg Take 1 tablet by mouth in the morning and 1 tablet in the evening. [facility] levETIRAcet am (KEPPRA) 500 mg tablet 2022-0 2- 00:00: 00 Yes [id number] 500mg Take 1 tablet by mouth in the morning and 1 tablet in the evening. [facility] levETIRAcet am (KEPPRA) 500 mg tablet 2022-0 2- 00:00: 00 10-30 00:00 :00 No [id number] 500mg Take 1 tablet by mouth in the morning and 1 tablet in the evening. [facility] levETIRAcet am (KEPPRA) 500 mg tablet 2-06 00:00: 00 10-30 00:00 :00 No [id number] 500mg Take 1 tablet by mouth in the morning and 1 tablet in the evening. [facility] amoxicillin 875 mg tablet 1-21 00:00: 00 07-12 05:59 :00 No [id number] 875mg Take 1 tablet by mouth in the morning and 1 tablet in the evening. Do all this for 10 days. [facility] zonisamide 100 mg capsule 2022-0 1-05 00:00: 00 09-26 04:59 :00 No [id number] Take 1 capsule by mouth daily for 14 days, THEN 2 capsules daily for 14 days, THEN 3 capsules daily for 14 days, THEN 4 capsules daily for 60 days. [facility] zonisamide 100 mg capsule 2022-0 1-05 00:00: 00 09-26 04:59 :00 No [id number] Take 1 capsule by mouth daily for 14 days, THEN 2 capsules daily for 14 days, THEN 3 capsules daily for 14 days, THEN 4 capsules daily for 60 days. [facility] zonisamide 100 mg capsule 2022-0 1-05 00:00: 00 09-26 04:59 :00 No [id number] Take 1 capsule by mouth daily for 14 days, THEN 2 capsules daily for 14 days, THEN 3 capsules daily for 14 days, THEN 4 capsules daily for 60 days. [facility] zonisamide 100 mg capsule 2022-0 1-05 00:00: 00 09-26 04:59 :00 No [id number] Take 1 capsule by mouth daily for 14 days, THEN 2 capsules daily for 14 days, THEN 3 capsules daily for 14 days, THEN 4 capsules daily for 60 days. [facility] zonisamide 100 mg capsule 2022-0 1-05 00:00: 00 09-26 04:59 :00 No [id number] Take 1 capsule by mouth daily for 14 days, THEN 2 capsules daily for 14 days, THEN 3 capsules daily for 14 days, THEN 4 capsules daily for 60 days. [facility] zonisamide 100 mg capsule 2022-0 05 00:00: 00 09-26 04:59 :00 No [id number] Take 1 capsule by mouth daily for 14 days, THEN 2 capsules daily for 14 days, THEN 3 capsules daily for 14 days, THEN 4 capsules daily for 60 days. [facility] zonisamide 100 mg capsule 0 06-15 00:00: 00 08-07 00:00 :00 No [id number] Take 1 capsule by mouth daily for 14 days, THEN 2 capsules daily for 14 days, THEN 3 capsules daily for 14 days, THEN 4 capsules daily for 60 days. [facility] zonisamide 100 mg capsule 0 06-15 00:00: 00 08-07 00:00 :00 No [id number] Take 1 capsule by mouth daily for 14 days, THEN 2 capsules daily for 14 days, THEN 3 capsules daily for 14 days, THEN 4 capsules daily for 60 days. [facility] zonisamide (ZONEGRAN) capsule 100 mg 06-14 15:00: 00 Yes 100mg 100 mg, Oral, DAILY, First dose on Sun06/14/22 at 0900, Until Discontinu ed, Routine [facility] FLUoxetine 10 mg capsule 06-14 13:20: 14 Yes 10mg Take 10 mg by mouth daily. [facility] FLUoxetine 10 mg capsule 06-14 13:20: 14 Yes 10mg Take 10 mg by mouth daily. [facility] FLUoxetine 10 mg capsule 06-14 13:20: 14 Yes 10mg Take 10 mg by mouth daily. [facility] FLUoxetine 10 mg capsule 0 06-14 13:20: 14 Yes 10mg Take 10 mg by mouth daily. [facility] FLUoxetine 10 mg capsule 0 06-14 13:20: 14 Yes 10mg Take 10 mg by mouth daily. [facility] FLUoxetine 10 mg capsule 0 06-14 13:20: 14 Yes 10mg Take 10 mg by mouth daily. [facility] FLUoxetine 10 mg capsule 0 06-14 13:20: 14 Yes 10mg Take 10 mg by mouth daily. [facility] FLUoxetine 10 mg capsule 0 06-14 13:20: 14 Yes 10mg Take 10 mg by mouth daily. [facility] FLUoxetine 10 mg capsule 06-14 13:20: 14 Yes 10mg Take 10 mg by mouth daily. [facility] FLUoxetine 10 mg capsule 06-14 13:20: 14 Yes 10mg Take 10 mg by mouth daily. [facility] FLUoxetine 10 mg capsule 06-14 13:20: 14 Yes 10mg Take 10 mg by mouth daily. [facility] FLUoxetine 10 mg capsule 06-14 13:20: 14 Yes 10mg Take 10 mg by mouth daily. [facility] FLUoxetine 10 mg capsule 06-14 13:20: 14 Yes 10mg Take 10 mg by mouth daily. [facility] levETIRAcet am (KEPPRA) 750 mg tablet 06-14 00:00: 00 Yes [id number] 750mg Take 1 tablet by mouth in the morning and 1 tablet in the evening. [facility] levETIRAcet am (KEPPRA) 750 mg tablet 06-14 00:00: 00 Yes [id number] 750mg Take 1 tablet by mouth in the morning and 1 tablet in the evening. [facility] levETIRAcet am (KEPPRA) 750 mg tablet 06-14 00:00: 00 Yes [id number] 750mg Take 1 tablet by mouth in the morning and 1 tablet in the evening. [facility] levETIRAcet am (KEPPRA) 750 mg tablet 06-14 00:00: 00 Yes [id number] 750mg Take 1 tablet by mouth in the morning and 1 tablet in the evening. [facility] levETIRAcet am (KEPPRA) 750 mg tablet 06-14 00:00: 00 07-17 00:00 :00 No [id number] 750mg Take 1 tablet by mouth in the morning and 1 tablet in the evening. [facility] levETIRAcet am (KEPPRA) 750 mg tablet 06-14 00:00: 00 07-17 00:00 :00 No [id number] 750mg Take 1 tablet by mouth in the morning and 1 tablet in the evening. [facility] FLUoxetine (PROZAC) capsule 40 mg 06-13 15:00: 00 Yes 40mg 40 mg, Oral, DAILY, First dose on Sun06/13/22 at 0900, Until Discontinu ed, Routine [facility] heparin (porcine) injection 5,000 Units 06-13 02:00: 00 Yes 5000U 5,000 Units, Subcutaneo us, Q12H, First dose on Sun06/12/22 at 1999, Until Discontinu ed, Routine [facility] levETIRAcet am (KEPPRA) tablet 750 mg 06-13 02:00: 00 Yes 750mg 750 mg, Oral, BID, First dose on Sun06/12/22 at 2000, Until Discontinu ed, Routine [facility] LORazepam (ATIVAN) injection 2 mg 06-12 22:07: 03 Yes 2mg 2 mg, Intramuscu lar, PRN - SEE INSTRUCTIO NS, 2 doses, Starting on Sun06/12/22 at 1607, Until Discontinu ed, STAT, For seizure lasting two minutes or longer. [facility] acetaminoph en (TYLENOL) tablet 650 mg 06-12 17:44: 20 Yes 650mg 650 mg, Oral, Q6HPRN, Starting on Sun06/12/22 at 1144, Until Discontinu ed, Routine, Pain (scale 1-3) [facility] levETIRAcet am (KEPPRA) 750 mg tablet 2021-06 00:00: 00 Yes [id number] 750mg Take 1 tablet by mouth in the morning and 1 tablet in the evening. [facility] levETIRAcet am (KEPPRA) 750 mg tablet 2021-06 00:00: 00 06-14 00:00 :00 No [id number] 750mg Take 1 tablet by mouth in the morning and 1 tablet in the evening. [facility] levETIRAcet am (KEPPRA) 750 mg tablet 03-08 00:00: 00 Yes [id number] 750mg Take 1 tablet by mouth in the morning and 1 tablet in the evening. [facility] levETIRAcet am (KEPPRA) 750 mg tablet 03-08 00:00: 00 Yes [id number] 06 750mg Take 1 tablet by mouth in the morning and 1 tablet in the evening. [facility] levETIRAcet am (KEPPRA) 750 mg tablet 03-08 00:00: 00 Yes [id number] 06 750mg Take 1 tablet by mouth in the morning and 1 tablet in the evening. [facility] levETIRAcet am (KEPPRA) 750 mg tablet 03-08 00:00: 00 Yes [id number] 06 750mg Take 1 tablet by mouth in the morning and 1 tablet in the evening. [facility] levETIRAcet am (KEPPRA) 750 mg tablet 03-08 00:00: 00 06-08 00:00 :00 No [id number] 06 750mg Take 1 tablet by mouth in the morning and 1 tablet in the evening. [facility] levETIRAcet am (KEPPRA) 750 mg tablet 02-06 00:00: 00 Yes [id number] 06 750mg Take 1 tablet by mouth in the morning and 1 tablet in the evening. [facility] levETIRAcet am (KEPPRA) 750 mg tablet 02-06 00:00: 00 Yes [id number] 06 750mg Take 1 tablet by mouth in the morning and 1 tablet in the evening. [facility] levETIRAcet am (KEPPRA) 750 mg tablet 02-06 00:00: 00 03-08 00:00 :00 No [id number] 06 750mg Take 1 tablet by mouth in the morning and 1 tablet in the evening. [facility] FLUoxetine 20 mg capsule 31 00:00: 00 01-31 00:00 :00 No 20mg Take 20 mg by mouth in the morning. [facility] levETIRAcet am (KEPPRA) 750 mg tablet 12-23 00:00: 00 Yes [id number] 06 750mg Take 1 tablet by mouth in the morning and 1 tablet in the evening. [facility] levETIRAcet am (KEPPRA) 750 mg tablet 12-23 00:00: 00 02-06 00:00 :00 No [id number] 750mg Take 1 tablet by mouth in the morning and 1 tablet in the evening. [facility] FLUoxetine 10 mg capsule 0 12-06 09:06: 49 Yes 10mg Take 10 mg by mouth daily. [facility] FLUoxetine 10 mg capsule 0 12-06 09:06: 49 Yes 10mg Take 10 mg by mouth daily. [facility] FLUoxetine 10 mg capsule 0 12-06 09:06: 49 Yes 10mg Take 10 mg by mouth daily. [facility] FLUoxetine 10 mg capsule 0 12-06 09:06: 49 Yes 10mg Take 10 mg by mouth daily. [facility] FLUoxetine 10 mg capsule 0 12-06 09:06: 49 Yes 10mg Take 10 mg by mouth daily. [facility] FLUoxetine 10 mg capsule 0 12-06 09:06: 49 Yes 10mg Take 10 mg by mouth daily. [facility] FLUoxetine 10 mg capsule 0 12-06 09:06: 49 Yes 10mg Take 10 mg by mouth daily. [facility] FLUoxetine 10 mg capsule 0 12-06 09:06: 49 Yes 10mg Take 10 mg by mouth daily. [facility] escitalopra m oxalate 10 mg tablet 0 11-16 00:00: 00 Yes 10mg Take 10 mg by mouth in the morning. [facility] escitalopra m oxalate 10 mg tablet 11-16 00:00: 00 Yes 10mg Take 10 mg by mouth in the morning. [facility] escitalopra m oxalate 10 mg tablet 2021-0 11-16 00:00: 00 Yes 10mg Take 10 mg by mouth in the morning. [facility] escitalopra m oxalate 10 mg tablet 2021-0 11-16 00:00: 00 Yes 10mg Take 10 mg by mouth in the morning. [facility] escitalopra m oxalate 10 mg tablet 2021-0 11-16 00:00: 00 Yes 10mg Take 10 mg by mouth in the morning. [facility] escitalopra m oxalate 10 mg tablet 2021-0 11-16 00:00: 00 Yes 10mg Take 10 mg by mouth in the morning. [facility] escitalopra m oxalate 10 mg tablet 2021-0 11-16 00:00: 00 Yes 10mg Take 10 mg by mouth in the morning. [facility] escitalopra m oxalate 10 mg tablet 2021-0 11-16 00:00: 00 Yes 10mg Take 10 mg by mouth in the morning. [facility] escitalopra m oxalate 10 mg tablet 2021-0 11-16 00:00: 00 Yes 10mg Take 10 mg by mouth in the morning. [facility] escitalopra m oxalate 10 mg tablet 2021-0 11-16 00:00: 00 Yes 10mg Take 10 mg by mouth in the morning. [facility] escitalopra m oxalate 10 mg tablet 2021-0 11-16 00:00: 00 Yes 10mg Take 10 mg by mouth in the morning. [facility] escitalopra m oxalate 10 mg tablet 2021-0 11-16 00:00: 00 Yes 10mg Take 10 mg by mouth in the morning. [facility] escitalopra m oxalate 10 mg tablet 2021-0 11-16 00:00: 00 Yes 10mg Take 10 mg by mouth in the morning. [facility] escitalopra m oxalate 10 mg tablet 2021-0 11-16 00:00: 00 Yes 10mg Take 10 mg by mouth in the morning. [facility] escitalopra m oxalate 10 mg tablet 2022-0 608 00:00: 00 Yes 10mg Take 10 mg by mouth in the morning. [facility] escitalopra m oxalate 10 mg tablet 2021-0 608 00:00: 00 Yes 10mg Take 10 mg by mouth in the morning. [facility] escitalopra m oxalate 10 mg tablet 2021-0 6 00:00: 00 Yes 10mg Take 10 mg by mouth in the morning. [facility] escitalopra m oxalate 10 mg tablet 2021-0 11-16 00:00: 00 Yes 10mg Take 10 mg by mouth in the morning. [facility] escitalopra m oxalate 10 mg tablet 2021-0 11-16 00:00: 00 Yes 10mg Take 10 mg by mouth in the morning. [facility] escitalopra m oxalate 10 mg tablet 2021-0 11-16 00:00: 00 Yes 10mg Take 10 mg by mouth in the morning. [facility] escitalopra m oxalate 10 mg tablet 2021-0 11-16 00:00: 00 Yes 10mg Take 10 mg by mouth in the morning. [facility] escitalopra m oxalate 10 mg tablet 2021-0 11-16 00:00: 00 Yes 10mg Take 1 tablet by mouth in the morning. [facility] escitalopra m oxalate 10 mg tablet 2021-0 11-16 00:00: 00 Yes 10mg Take 1 tablet by mouth in the morning. [facility] escitalopra m oxalate 10 mg tablet 2021-0 11-16 00:00: 00 Yes 10mg Take 1 tablet by mouth in the morning. [facility] escitalopra m oxalate 10 mg tablet 2-0 11-16 00:00: 00 Yes 10mg Take 1 tablet by mouth in the morning. [facility] escitalopra m oxalate 10 mg tablet 2021-0 6 00:00: 00 Yes 10mg Take 1 tablet by mouth in the morning. [facility] escitalopra m oxalate 10 mg tablet 2-0 6 00:00: 00 Yes 10mg Take 1 tablet by mouth in the morning. [facility] escitalopra m oxalate 10 mg tablet 2-0 608 00:00: 00 Yes 10mg Take 1 tablet by mouth in the morning. [facility] escitalopra m oxalate 10 mg tablet 2021-0 6 00:00: 00 Yes 10mg Take 1 tablet by mouth in the morning. [facility] escitalopra m oxalate 10 mg tablet 2021-0 11-16 00:00: 00 Yes 10mg Take 1 tablet by mouth in the morning. [facility] escitalopra m oxalate 10 mg tablet 2021-0 6 00:00: 00 Yes 10mg Take 1 tablet by mouth in the morning. [facility] escitalopra m oxalate 10 mg tablet 2021-0 11-16 00:00: 00 Yes 10mg Take 1 tablet by mouth in the morning. [facility] escitalopra m oxalate 10 mg tablet 2021-0 11-16 00:00: 00 Yes 10mg Take 1 tablet by mouth in the morning. [facility] escitalopra m oxalate 10 mg tablet 2021-0 11-16 00:00: 00 Yes 10mg Take 1 tablet by mouth in the morning. [facility] escitalopra m oxalate 10 mg tablet 2021-0 11-16 00:00: 00 Yes 10mg Take 1 tablet by mouth in the morning. [facility] escitalopra m oxalate 10 mg tablet 2-0 11-16 00:00: 00 Yes 10mg Take 1 tablet by mouth in the morning. [facility] escitalopra m oxalate 10 mg tablet 2-0 11-16 00:00: 00 Yes 10mg Take 1 tablet by mouth in the morning. [facility] escitalopra m oxalate 10 mg tablet 2-0 11-16 00:00: 00 Yes 10mg Take 1 tablet by mouth in the morning. [facility] escitalopra m oxalate 10 mg tablet 2-0 6-08 00:00: 00 Yes 10mg Take 1 tablet by mouth in the morning. [facility] escitalopra m oxalate 10 mg tablet 2022-0 6-08 00:00: 00 Yes 10mg Take 1 tablet by mouth in the morning. [facility] escitalopra m oxalate 10 mg tablet 2021-0 11-16 00:00: 00 Yes 10mg Take 1 tablet by mouth in the morning. [facility] escitalopra m oxalate 10 mg tablet 0 11-16 00:00: 00 Yes 10mg Take 1 tablet by mouth in the morning. [facility] escitalopra m oxalate 10 mg tablet 2021-0 11-16 00:00: 00 03-30 00:00 :00 No 10mg Take 1 tablet by mouth in the morning. [facility] escitalopra m oxalate 10 mg tablet 2021-11-16 00:00: 00 03-30 00:00 :00 No 10mg Take 1 tablet by mouth in the morning. [facility] escitalopra m oxalate 10 mg tablet 11-16 00:00: 00 03-30 00:00 :00 No 10mg Take 1 tablet by mouth in the morning. [facility] Immunizations Ordered Immunization Name Filled Immunization Name Date Status Comments Source HPV9 Unknown Completed [facility] HPV9 Unknown Completed [facility] MCV4,NOS Unknown Completed [facility] MMR Unknown Completed [facility] MMR Unknown Completed [facility] Pneumococcal 7 Conjugate, PCV7 (Prevnar7) Unknown Completed [facility] Pneumococcal 7 Conjugate, PCV7 (Prevnar7) Unknown Completed [facility] Pneumococcal 7 Conjugate, PCV7 (Prevnar7) Unknown Completed [facility] Pneumococcal 7 Conjugate, PCV7 (Prevnar7) Unknown Completed [facility] IPV Unknown Completed [facility] IPV Unknown Completed [facility] IPV Unknown Completed [facility] TDAP Unknown Completed [facility] Varicella (varivax)(chicken pox) Unknown Completed [facility] Varicella (varivax)(chicken pox) Unknown Completed [facility] Influenza Virus Vaccine Quad IM, Preserv and ABX Free 6 MO-64 YRS (FLUCELVAX) Unknown Completed [facility] SARS-COV-2 COVID 19 JULES SUCROSE VACCINE 12+, [id number], 0.3 ML (30 MCG), IM PFIZER (MELTON TOP) Unknown Completed [facility] SARS-COV-2 COVID-19 PFIZER VACCINE Unknown Completed [facility] SARS-COV-2 COVID-19 PFIZER VACCINE Unknown Completed [facility] DTaP, Unspecified Formulation Unknown Completed [facility] DTaP, Unspecified Formulation Unknown Completed [facility] DTaP, Unspecified Formulation Unknown Completed [facility] DTaP, Unspecified Formulation Unknown Completed [facility] Dtap/ipv Unknown Completed [facility] Influenza Virus Vaccine - Whole Unknown Completed [facility] HEPATITIS A Unknown Completed [facility] HEPATITIS A Unknown Completed [facility] HEPATITIS A Unknown Completed [facility] Comvax Unknown Completed [facility] Comvax Unknown Completed [facility] Comvax Unknown Completed [facility] HIB 4 Dose Schedule Unknown Completed [facility] HPV9 Unknown Completed [facility] HPV9 Unknown Completed [facility] MCV4,NOS Unknown Completed [facility] MMR Unknown Completed [facility] MMR Unknown Completed [facility] Pneumococcal 7 Conjugate, PCV7 (Prevnar7) Unknown Completed [facility] Pneumococcal 7 Conjugate, PCV7 (Prevnar7) Unknown Completed [facility] Pneumococcal 7 Conjugate, PCV7 (Prevnar7) Unknown Completed [facility] Pneumococcal 7 Conjugate, PCV7 (Prevnar7) Unknown Completed [facility] IPV Unknown Completed [facility] IPV Unknown Completed [facility] IPV Unknown Completed [facility] TDAP Unknown Completed [facility] Varicella (varivax)(chicken pox) Unknown Completed [facility] Varicella (varivax)(chicken pox) Unknown Completed [facility] Influenza Virus Vaccine Quad IM, Preserv and ABX Free 6 MO-64 YRS (FLUCELVAX) Unknown Completed [facility] SARS-COV-2 COVID 19 JULES SUCROSE VACCINE 12+, [id number], 0.3 ML (30 MCG), IM PFIZER (MELTON TOP) Unknown Completed [facility] SARS-COV-2 COVID-19 PFIZER VACCINE Unknown Completed [facility] SARS-COV-2 COVID-19 PFIZER VACCINE Unknown Completed [facility] DTaP, Unspecified Formulation Unknown Completed [facility] DTaP, Unspecified Formulation Unknown Completed [facility] DTaP, Unspecified Formulation Unknown Completed [facility] DTaP, Unspecified Formulation Unknown Completed [facility] Dtap/ipv Unknown Completed [facility] Influenza Virus Vaccine - Whole Unknown Completed [facility] HEPATITIS A Unknown [facility] HE[facility] A Unknown Completed [facility] HEPATITIS A Unknown Completed [facility] Comvax Unknown Completed [facility] Comvax Unknown Completed [facility] Comvax Unknown Completed [facility] HIB 4 Dose Schedule Unknown Completed [facility] HPV9 Unknown Completed [facility] HPV9 Unknown Completed [facility] MCV4,NOS Unknown Completed [facility] MMR Unknown Completed [facility] MMR Unknown Completed [facility] Pneumococcal 7 Conjugate, PCV7 (Prevnar7) Unknown Completed [facility] Pneumococcal 7 Conjugate, PCV7 (Prevnar7) Unknown Completed [facility] Pneumococcal 7 Conjugate, PCV7 (Prevnar7) Unknown Completed [facility] Pneumococcal 7 Conjugate, PCV7 (Prevnar7) Unknown Completed [facility] IPV Unknown Completed [facility] IPV Unknown Completed [facility] IPV Unknown Completed [facility] TDAP Unknown Completed [facility] Varicella (varivax)(chicken pox) Unknown Completed [facility] Varicella (varivax)(chicken pox) Unknown Completed [facility] Influenza Virus Vaccine Quad IM, Preserv and ABX Free 6 MO-64 YRS (FLUCELVAX) Unknown Completed [facility] SARS-COV-2 COVID 19 JULES SUCROSE VACCINE 12+, [id number], 0.3 ML (30 MCG), IM PFIZER (MELTON TOP) Unknown Completed [facility] SARS-COV-2 COVID-19 PFIZER VACCINE Unknown Completed [facility] SARS-COV-2 COVID-19 PFIZER VACCINE Unknown Completed [facility] DTaP, Unspecified Formulation Unknown Completed [facility] DTaP, Unspecified Formulation Unknown Completed [facility] DTaP, Unspecified Formulation Unknown Completed [facility] DTaP, Unspecified Formulation Unknown Completed [facility] Dtap/ipv Unknown Completed [facility] Influenza Virus Vaccine - Whole Unknown Completed [facility] HEPATITIS A Unknown Completed [facility] HEPATITIS A Unknown Com[facility] HEPATITIS A Unknown Com[facility] Comvax Unknown Completed [facility] Comvax Unknown Completed [facility] Comvax Unknown Completed [facility] HIB 4 Dose Schedule Unknown Completed [facility] HPV9 Unknown Completed [facility] HPV9 Unknown Completed [facility] MCV4,NOS Unknown Completed [facility] MMR Unknown Completed [facility] MMR Unknown Completed [facility] Pneumococcal 7 Conjugate, PCV7 (Prevnar7) Unknown Completed [facility] Pneumococcal 7 Conjugate, PCV7 (Prevnar7) Unknown Completed [facility] Pneumococcal 7 Conjugate, PCV7 (Prevnar7) Unknown Completed [facility] Pneumococcal 7 Conjugate, PCV7 (Prevnar7) Unknown Completed [facility] IPV Unknown Completed [facility] IPV Unknown Completed [facility] IPV Unknown Completed [facility] TDAP Unknown Completed [facility] Varicella (varivax)(chicken pox) Unknown Completed [facility] Varicella (varivax)(chicken pox) Unknown Completed [facility] Influenza Virus Vaccine Quad IM, Preserv and ABX Free 6 MO-64 YRS (FLUCELVAX) Unknown Completed [facility] SARS-COV-2 COVID 19 JULES SUCROSE VACCINE 12+, [id number], 0.3 ML (30 MCG), IM PFIZER (MELTON TOP) Unknown Completed [facility] SARS-COV-2 COVID-19 PFIZER VACCINE Unknown Completed [facility] SARS-COV-2 COVID-19 PFIZER VACCINE Unknown Completed [facility] DTaP, Unspecified Formulation Unknown Completed [facility] DTaP, Unspecified Formulation Unknown Completed [facility] DTaP, Unspecified Formulation Unknown Completed [facility] DTaP, Unspecified Formulation Unknown Completed [facility] Dtap/ipv Unknown Completed [facility] Influenza Virus Vaccine - Whole Unknown Completed [facility] HEPATITIS A Unknown Completed [facility] HEPATITIS A Unknown Com[facility] HEPATITIS A Unknown Com[facility] Comvax Unknown Completed [facility] Comvax Unknown Completed [facility] Comvax Unknown Completed [facility] HIB 4 Dose Schedule Unknown Completed [facility] HPV9 Unknown Completed [facility] HPV9 Unknown Completed [facility] MCV4,NOS Unknown Completed [facility] MMR Unknown Completed [facility] MMR Unknown Completed [facility] Pneumococcal 7 Conjugate, PCV7 (Prevnar7) Unknown Completed [facility] Pneumococcal 7 Conjugate, PCV7 (Prevnar7) Unknown Completed [facility] Pneumococcal 7 Conjugate, PCV7 (Prevnar7) Unknown Completed [facility] Pneumococcal 7 Conjugate, PCV7 (Prevnar7) Unknown Completed [facility] IPV Unknown Completed [facility] IPV Unknown Completed [facility] IPV Unknown Completed [facility] TDAP Unknown Completed [facility] Varicella (varivax)(chicken pox) Unknown Completed [facility] Varicella (varivax)(chicken pox) Unknown Completed [facility] Influenza Virus Vaccine Quad IM, Preserv and ABX Free 6 MO-64 YRS (FLUCELVAX) Unknown Completed [facility] SARS-COV-2 COVID 19 JULES SUCROSE VACCINE 12+, [id number], 0.3 ML (30 MCG), IM PFIZER (MELTON TOP) Unknown Completed [facility] SARS-COV-2 COVID-19 PFIZER VACCINE Unknown Completed [facility] SARS-COV-2 COVID-19 PFIZER VACCINE Unknown Completed [facility] DTaP, Unspecified Formulation Unknown Completed [facility] DTaP, Unspecified Formulation Unknown Completed [facility] DTaP, Unspecified Formulation Unknown Completed [facility] DTaP, Unspecified Formulation Unknown Completed [facility] Dtap/ipv Unknown Completed [facility] Influenza Virus Vaccine - Whole Unknown Completed [facility] HEPATITIS A Unknown Completed [facility] HEPATITIS A Unknown Com[facility] HEPATITIS A Unknown Completed [facility] Comvax Unknown Completed [facility] Comvax Unknown Completed [facility] Comvax Unknown Completed [facility] HIB 4 Dose Schedule Unknown Completed [facility] HPV9 Unknown Completed [facility] HPV9 Unknown Completed [facility] MCV4,NOS Unknown Completed [facility] MMR Unknown Completed [facility] MMR Unknown Completed [facility] Pneumococcal 7 Conjugate, PCV7 (Prevnar7) Unknown Completed [facility] Pneumococcal 7 Conjugate, PCV7 (Prevnar7) Unknown Completed [facility] Pneumococcal 7 Conjugate, PCV7 (Prevnar7) Unknown Completed [facility] Pneumococcal 7 Conjugate, PCV7 (Prevnar7) Unknown Completed [facility] IPV Unknown Completed [facility] IPV Unknown Completed [facility] IPV Unknown Completed [facility] TDAP Unknown Completed [facility] Varicella (varivax)(chicken pox) Unknown Completed [facility] Varicella (varivax)(chicken pox) Unknown Completed [facility] Influenza Virus Vaccine Quad IM, Preserv and ABX Free 6 MO-64 YRS (FLUCELVAX) Unknown Completed [facility] SARS-COV-2 COVID 19 JULES SUCROSE VACCINE 12+, 8070-5147, 0.3 ML (30 MCG), IM PFIZER (MELTON TOP) Unknown Completed [facility] SARS-COV-2 COVID-19 PFIZER VACCINE Unknown Completed [facility] SARS-COV-2 COVID-19 PFIZER VACCINE Unknown Completed [facility] DTaP, Unspecified Formulation Unknown Completed [facility] DTaP, Unspecified Formulation Unknown Completed [facility] DTaP, Unspecified Formulation Unknown Completed [facility] DTaP, Unspecified Formulation Unknown Completed [facility] Dtap/ipv Unknown Completed [facility] Influenza Virus Vaccine - Whole Unknown Completed [facility] HEPATITIS A Unknown Com[facility] HEPATITIS A Unknown Completed [facility] HEPATITIS A Unknown Completed [facility] Comvax Unknown Completed [facility] Comvax Unknown Completed [facility] Comvax Unknown Completed [facility] HIB 4 Dose Schedule Unknown Completed [facility] HPV9 Unknown Completed [facility] HPV9 Unknown Completed [facility] MCV4,NOS Unknown Completed [facility] MMR Unknown Completed [facility] MMR Unknown Completed [facility] Pneumococcal 7 Conjugate, PCV7 (Prevnar7) Unknown Completed [facility] Pneumococcal 7 Conjugate, PCV7 (Prevnar7) Unknown Completed [facility] Pneumococcal 7 Conjugate, PCV7 (Prevnar7) Unknown Completed [facility] Pneumococcal 7 Conjugate, PCV7 (Prevnar7) Unknown Completed [facility] IPV Unknown Completed [facility] IPV Unknown Completed [facility] IPV Unknown Completed [facility] TDAP Unknown Completed [facility] Varicella (varivax)(chicken pox) Unknown Completed [facility] Varicella (varivax)(chicken pox) Unknown Completed [facility] Influenza Virus Vaccine Quad IM, Preserv and ABX Free 6 MO-64 YRS (FLUCELVAX) Unknown Completed [facility] SARS-COV-2 COVID 19 JULES SUCROSE VACCINE 12+, [id number], 0.3 ML (30 MCG), IM PFIZER (MELTON TOP) Unknown Completed [facility] SARS-COV-2 COVID-19 PFIZER VACCINE Unknown Completed [facility] SARS-COV-2 COVID-19 PFIZER VACCINE Unknown Completed [facility] DTaP, Unspecified Formulation Unknown Completed [facility] DTaP, Unspecified Formulation Unknown Completed [facility] DTaP, Unspecified Formulation Unknown Completed [facility] DTaP, Unspecified Formulation Unknown Completed [facility] Dtap/ipv Unknown Completed [facility] Influenza Virus Vaccine - Whole Unknown Completed [facility] HEPATITIS A Unknown Completed [facility] HEPATITIS A Unknown Completed [facility] HEPATITIS A Unknown Completed [facility] Comvax Unknown Completed [facility] Comvax Unknown Completed [facility] Comvax Unknown Completed [facility] HIB 4 Dose Schedule Unknown Completed [facility] HPV9 Unknown Completed [facility] HPV9 Unknown Completed [facility] MCV4,NOS Unknown Completed [facility] MMR Unknown Completed [facility] MMR Unknown Completed [facility] Pneumococcal 7 Conjugate, PCV7 (Prevnar7) Unknown Completed [facility] Pneumococcal 7 Conjugate, PCV7 (Prevnar7) Unknown Completed [facility] Pneumococcal 7 Conjugate, PCV7 (Prevnar7) Unknown Completed [facility] Pneumococcal 7 Conjugate, PCV7 (Prevnar7) Unknown Completed [facility] IPV Unknown Completed [facility] IPV Unknown Completed [facility] IPV Unknown Completed [facility] TDAP Unknown Completed [facility] Varicella (varivax)(chicken pox) Unknown Completed [facility] Varicella (varivax)(chicken pox) Unknown Completed [facility] Influenza Virus Vaccine Quad IM, Preserv and ABX Free 6 MO-64 YRS (FLUCELVAX) Unknown Completed [facility] SARS-COV-2 COVID 19 JULES SUCROSE VACCINE 12+, 2543-1036, 0.3 ML (30 MCG), IM PFIZER (MELTON TOP) Unknown Completed [facility] SARS-COV-2 COVID-19 PFIZER VACCINE Unknown Completed [facility] SARS-COV-2 COVID-19 PFIZER VACCINE Unknown Completed [facility] DTaP, Unspecified Formulation Unknown Completed [facility] DTaP, Unspecified Formulation Unknown Completed [facility] DTaP, Unspecified Formulation Unknown Completed [facility] DTaP, Unspecified Formulation Unknown Completed [facility] Dtap/ipv Unknown Completed [facility] Influenza Virus Vaccine - Whole Unknown Completed [facility] HEPATITIS A Unknown Completed [facility] HEPATITIS A Unknown Completed [facility] HEPATITIS A Unknown Completed [facility] Comvax Unknown Completed [facility] Comvax Unknown Completed [facility] Comvax Unknown Completed [facility] HIB 4 Dose Schedule Unknown Completed [facility] HPV9 Unknown Completed [facility] HPV9 Unknown Completed [facility] MCV4,NOS Unknown Completed [facility] MMR Unknown Completed [facility] MMR Unknown Completed [facility] Pneumococcal 7 Conjugate, PCV7 (Prevnar7) Unknown Completed [facility] Pneumococcal 7 Conjugate, PCV7 (Prevnar7) Unknown Completed [facility] Pneumococcal 7 Conjugate, PCV7 (Prevnar7) Unknown Completed [facility] Pneumococcal 7 Conjugate, PCV7 (Prevnar7) Unknown Completed [facility] IPV Unknown Completed [facility] IPV Unknown Completed [facility] IPV Unknown Completed [facility] TDAP Unknown Completed [facility] Varicella (varivax)(chicken pox) Unknown Completed [facility] Varicella (varivax)(chicken pox) Unknown Completed [facility] Influenza Virus Vaccine Quad IM, Preserv and ABX Free 6 MO-64 YRS (FLUCELVAX) Unknown Completed [facility] SARS-COV-2 COVID 19 JULES SUCROSE VACCINE 12+, [id number], 0.3 ML (30 MCG), IM PFIZER (MELTON TOP) Unknown Completed [facility] SARS-COV-2 COVID-19 PFIZER VACCINE Unknown Completed [facility] SARS-COV-2 COVID-19 PFIZER VACCINE Unknown Completed [facility] DTaP, Unspecified Formulation Unknown Completed [facility] DTaP, Unspecified Formulation Unknown Completed [facility] DTaP, Unspecified Formulation Unknown Completed [facility] DTaP, Unspecified Formulation Unknown Completed [facility] Dtap/ipv Unknown Completed [facility] Influenza Virus Vaccine - Whole Unknown Completed [facility] HEPATITIS A Unknown Completed [facility] HEPATITIS A Unknown Completed [facility] HEPATITIS A Unknown Completed [facility] Comvax Unknown Completed [facility] Comvax Unknown Completed [facility] Comvax Unknown Completed [facility] HIB 4 Dose Schedule Unknown Completed [facility] HPV9 Unknown Completed [facility] HPV9 Unknown Completed [facility] MCV4,NOS Unknown Completed [facility] MMR Unknown Completed [facility] MMR Unknown Completed [facility] Pneumococcal 7 Conjugate, PCV7 (Prevnar7) Unknown Completed [facility] Pneumococcal 7 Conjugate, PCV7 (Prevnar7) Unknown Completed [facility] Pneumococcal 7 Conjugate, PCV7 (Prevnar7) Unknown Completed [facility] Pneumococcal 7 Conjugate, PCV7 (Prevnar7) Unknown Completed [facility] IPV Unknown Completed [facility] IPV Unknown Completed [facility] IPV Unknown Completed [facility] TDAP Unknown Completed [facility] Varicella (varivax)(chicken pox) Unknown Completed [facility] Varicella (varivax)(chicken pox) Unknown Completed [facility] Influenza Virus Vaccine Quad IM, Preserv and ABX Free 6 MO-64 YRS (FLUCELVAX) Unknown Completed [facility] SARS-COV-2 COVID 19 JULES SUCROSE VACCINE 12+, [id number], 0.3 ML (30 MCG), IM PFIZER (MELTON TOP) Unknown Completed [facility] SARS-COV-2 COVID-19 PFIZER VACCINE Unknown Completed [facility] SARS-COV-2 COVID-19 PFIZER VACCINE Unknown Completed [facility] DTaP, Unspecified Formulation Unknown Completed [facility] DTaP, Unspecified Formulation Unknown Completed [facility] DTaP, Unspecified Formulation Unknown Completed [facility] DTaP, Unspecified Formulation Unknown Completed [facility] Dtap/ipv Unknown Completed [facility] Influenza Virus Vaccine - Whole Unknown Completed [facility] HEPATITIS A Unknown Com[facility] Comvax Unknown Completed [facility] Comvax Unknown Completed [facility] Comvax Unknown Completed [facility] HIB 4 Dose Schedule Unknown Completed [facility] HPV9 Unknown Completed [facility] HPV9 Unknown Completed [facility] MCV4,NOS Unknown Completed [facility] MMR Unknown Completed [facility] MMR Unknown Completed [facility] Pneumococcal 7 Conjugate, PCV7 (Prevnar7) Unknown Completed [facility] Pneumococcal 7 Conjugate, PCV7 (Prevnar7) Unknown Completed [facility] Pneumococcal 7 Conjugate, PCV7 (Prevnar7) Unknown Completed [facility] Pneumococcal 7 Conjugate, PCV7 (Prevnar7) Unknown Completed [facility] IPV Unknown Completed [facility] IPV Unknown Completed [facility] IPV Unknown Completed [facility] TDAP Unknown Completed [facility] Varicella (varivax)(chicken pox) Unknown Completed [facility] Varicella (varivax)(chicken pox) Unknown Completed [facility] Influenza Virus Vaccine Quad IM, Preserv and ABX Free 6 MO-64 YRS (FLUCELVAX) Unknown Completed [facility] SARS-COV-2 COVID 19 JULES SUCROSE VACCINE 12+, [id number], 0.3 ML (30 MCG), IM PFIZER (MELTON TOP) Unknown Completed [facility] SARS-COV-2 COVID-19 PFIZER VACCINE Unknown Completed [facility] SARS-COV-2 COVID-19 PFIZER VACCINE Unknown Completed [facility] DTaP, Unspecified Formulation Unknown Completed [facility] DTaP, Unspecified Formulation Unknown Completed [facility] DTaP, Unspecified Formulation Unknown Completed [facility] DTaP, Unspecified Formulation Unknown Completed [facility] Dtap/ipv Unknown Completed [facility] Influenza Virus Vaccine - Whole Unknown Completed [facility] HEPATITIS A Unknown Completed [facility] HEPATITIS A Unknown Completed [facility] HEPATITIS A Unknown Completed [facility] Comvax Unknown Completed [facility] Comvax Unknown Completed [facility] Comvax Unknown Completed [facility] HIB 4 Dose Schedule Unknown Completed [facility] HPV9 Unknown Completed [facility] HPV9 Unknown Completed [facility] MCV4,NOS Unknown Completed [facility] MMR Unknown Completed [facility] MMR Unknown Completed [facility] Pneumococcal 7 Conjugate, PCV7 (Prevnar7) Unknown Completed [facility] Pneumococcal 7 Conjugate, PCV7 (Prevnar7) Unknown Completed [facility] Pneumococcal 7 Conjugate, PCV7 (Prevnar7) Unknown Completed [facility] Pneumococcal 7 Conjugate, PCV7 (Prevnar7) Unknown Completed [facility] IPV Unknown Completed [facility] IPV Unknown Completed [facility] IPV Unknown Completed [facility] TDAP Unknown Completed [facility] Varicella (varivax)(chicken pox) Unknown Completed [facility] Varicella (varivax)(chicken pox) Unknown Completed [facility] Influenza Virus Vaccine Quad IM, Preserv and ABX Free 6 MO-64 YRS (FLUCELVAX) Unknown Completed [facility] SARS-COV-2 COVID 19 JULES SUCROSE VACCINE 12+, [id number], 0.3 ML (30 MCG), IM PFIZER (MELTON TOP) Unknown Completed [facility] SARS-COV-2 COVID-19 PFIZER VACCINE Unknown Completed [facility] SARS-COV-2 COVID-19 PFIZER VACCINE Unknown Completed [facility] DTaP, Unspecified Formulation Unknown Completed [facility] DTaP, Unspecified Formulation Unknown Completed [facility] DTaP, Unspecified Formulation Unknown Completed [facility] DTaP, Unspecified Formulation Unknown Completed [facility] Dtap/ipv Unknown Completed [facility] Influenza Virus Vaccine - Whole Unknown Completed [facility] HEPATITIS A Unknown Completed [facility] HEPATITIS A Unknown Completed [facility] HEPATITIS A Unknown Completed [facility] Comvax Unknown Completed [facility] Comvax Unknown Completed [facility] Comvax Unknown Completed [facility] HIB 4 Dose Schedule Unknown Completed [facility] HPV9 Unknown Completed [facility] HPV9 Unknown Completed [facility] MCV4,NOS Unknown Completed [facility] MMR Unknown Completed [facility] MMR Unknown Completed [facility] Pneumococcal 7 Conjugate, PCV7 (Prevnar7) Unknown Completed [facility] Pneumococcal 7 Conjugate, PCV7 (Prevnar7) Unknown Completed [facility] Pneumococcal 7 Conjugate, PCV7 (Prevnar7) Unknown Completed [facility] Pneumococcal 7 Conjugate, PCV7 (Prevnar7) Unknown Completed [facility] IPV Unknown Completed [facility] IPV Unknown Completed [facility] IPV Unknown Completed [facility] TDAP Unknown Completed [facility] Varicella (varivax)(chicken pox) Unknown Completed [facility] Varicella (varivax)(chicken pox) Unknown Completed [facility] Influenza Virus Vaccine Quad IM, Preserv and ABX Free 6 MO-64 YRS (FLUCELVAX) Unknown Completed [facility] SARS-COV-2 COVID 19 JULES SUCROSE VACCINE 12+, [id number], 0.3 ML (30 MCG), IM PFIZER (MELTON TOP) Unknown Completed [facility] SARS-COV-2 COVID-19 PFIZER VACCINE Unknown Completed [facility] SARS-COV-2 COVID-19 PFIZER VACCINE Unknown Completed [facility] DTaP, Unspecified Formulation Unknown Completed [facility] DTaP, Unspecified Formulation Unknown Completed [facility] DTaP, Unspecified Formulation Unknown Completed [facility] DTaP, Unspecified Formulation Unknown Completed [facility] Dtap/ipv Unknown Completed [facility] Influenza Virus Vaccine - Whole Unknown Completed [facility] HEPATITIS A Unknown Completed [facility] HEPATITIS A Unknown Completed [facility] HEPATITIS A Unknown Completed [facility] Comvax Unknown Completed [facility] Comvax Unknown Completed [facility] Comvax Unknown Completed [facility] HIB 4 Dose Schedule Unknown Completed [facility] HPV9 Unknown Completed [facility] HPV9 Unknown Completed [facility] MCV4,NOS Unknown Completed [facility] MMR Unknown Completed [facility] MMR Unknown Completed [facility] Pneumococcal 7 Conjugate, PCV7 (Prevnar7) Unknown Completed [facility] Pneumococcal 7 Conjugate, PCV7 (Prevnar7) Unknown Completed [facility] Pneumococcal 7 Conjugate, PCV7 (Prevnar7) Unknown Completed [facility] Pneumococcal 7 Conjugate, PCV7 (Prevnar7) Unknown Completed [facility] IPV Unknown Completed [facility] [facility] Unknown Completed [facility] IPV Unknown Completed [facility] TDAP Unknown Completed [facility] Varicella (varivax)(chicken pox) Unknown Completed [facility] Varicella (varivax)(chicken pox) Unknown Completed [facility] Influenza Virus Vaccine Quad IM, Preserv and ABX Free 6 MO-64 YRS (FLUCELVAX) Unknown Completed [facility] SARS-COV-2 COVID 19 JULES SUCROSE VACCINE 12+, [id number], 0.3 ML (30 MCG), IM PFIZER (MELTON TOP) Unknown Completed [facility] SARS-COV-2 COVID-19 PFIZER VACCINE Unknown Completed [facility] SARS-COV-2 COVID-19 PFIZER VACCINE Unknown Completed [facility] DTaP, Unspecified Formulation Unknown Completed [facility] DTaP, Unspecified Formulation Unknown Completed [facility] DTaP, Unspecified Formulation Unknown Completed [facility] DTaP, Unspecified Formulation Unknown Completed [facility] Dtap/ipv Unknown Completed [facility] Influenza Virus Vaccine - Whole Unknown Completed [facility] HEPATITIS A Unknown Com[facility] HEPATITIS A Unknown Completed [facility] HEPATITIS A Unknown Completed [facility] Comvax Unknown Completed [facility] Comvax Unknown Completed [facility] Comvax Unknown Completed [facility] HIB 4 Dose Schedule Unknown Completed [facility] HPV9 Unknown Completed [facility] HPV9 Unknown Completed [facility] MCV4,NOS Unknown Completed [facility] MMR Unknown Completed [facility] MMR Unknown Completed [facility] Pneumococcal 7 Conjugate, PCV7 (Prevnar7) Unknown Completed [facility] Pneumococcal 7 Conjugate, PCV7 (Prevnar7) Unknown Completed [facility] Pneumococcal 7 Conjugate, PCV7 (Prevnar7) Unknown Completed [facility] Pneumococcal 7 Conjugate, PCV7 (Prevnar7) Unknown Completed [facility] IPV Unknown Completed [facility] IPV Unknown Completed [facility] IPV Unknown Completed [facility] TDAP Unknown Completed [facility] Varicella (varivax)(chicken pox) Unknown Completed [facility] Varicella (varivax)(chicken pox) Unknown Completed [facility] Influenza Virus Vaccine Quad IM, Preserv and ABX Free 6 MO-64 YRS (FLUCELVAX) Unknown Completed [facility] SARS-COV-2 COVID 19 JULES SUCROSE VACCINE 12+, [id number], 0.3 ML (30 MCG), IM PFIZER (MELTON TOP) Unknown Completed [facility] SARS-COV-2 COVID-19 PFIZER VACCINE Unknown Completed [facility] SARS-COV-2 COVID-19 PFIZER VACCINE Unknown Completed [facility] DTaP, Unspecified Formulation Unknown Completed [facility] DTaP, Unspecified Formulation Unknown Completed [facility] DTaP, Unspecified Formulation Unknown Completed [facility] DTaP, Unspecified Formulation Unknown Completed [facility] Dtap/ipv Unknown Completed [facility] Influenza Virus Vaccine - Whole Unknown Completed [facility] HEPATITIS A Unknown Completed [facility] HEPATITIS A Unknown Completed [facility] ty [facility] HEPATITIS A Unknown Completed [facility] ty [facility] Comvax Unknown Completed [facility] Comvax Unknown Completed [facility] Comvax Unknown Completed [facility] HIB 4 Dose Schedule Unknown Completed [facility] HPV9 Unknown Completed [facility] HPV9 Unknown Completed [facility] MCV4,NOS Unknown Completed [facility] MMR Unknown Completed [facility] MMR Unknown Completed [facility] Pneumococcal 7 Conjugate, PCV7 (Prevnar7) Unknown Completed [facility] Pneumococcal 7 Conjugate, PCV7 (Prevnar7) Unknown Completed [facility] Pneumococcal 7 Conjugate, PCV7 (Prevnar7) Unknown Completed [facility] Pneumococcal 7 Conjugate, PCV7 (Prevnar7) Unknown Completed [facility] IPV Unknown Completed [facility] IPV Unknown Completed [facility] IPV Unknown Completed [facility] TDAP Unknown Completed [facility] Varicella (varivax)(chicken pox) Unknown Completed [facility] Varicella (varivax)(chicken pox) Unknown Completed [facility] Influenza Virus Vaccine Quad IM, Preserv and ABX Free 6 MO-64 YRS (FLUCELVAX) Unknown Completed [facility] SARS-COV-2 COVID 19 JULES SUCROSE VACCINE 12+, [id number], 0.3 ML (30 MCG), IM PFIZER (MELTON TOP) Unknown Completed [facility] SARS-COV-2 COVID-19 PFIZER VACCINE Unknown Completed [facility] SARS-COV-2 COVID-19 PFIZER VACCINE Unknown Completed [facility] DTaP, Unspecified Formulation Unknown Completed [facility] DTaP, Unspecified Formulation Unknown Completed [facility] DTaP, Unspecified Formulation Unknown Completed [facility] DTaP, Unspecified Formulation Unknown Completed [facility] Dtap/ipv Unknown Completed [facility] Influenza Virus Vaccine - Whole Unknown Completed [facility] HEPATITIS A Unknown Completed [facility] HEPATITIS A Unknown Completed [facility] HEPATITIS A Unknown Completed [facility] Comvax Unknown Completed [facility] Comvax Unknown Completed [facility] Comvax Unknown Completed [facility] HIB 4 Dose Schedule Unknown Completed [facility] HPV9 Unknown Completed [facility] HPV9 Unknown Completed [facility] MCV4,NOS Unknown Completed [facility] MMR Unknown Completed [facility] MMR Unknown Completed [facility] Pneumococcal 7 Conjugate, PCV7 (Prevnar7) Unknown Completed [facility] Pneumococcal 7 Conjugate, PCV7 (Prevnar7) Unknown Completed [facility] Pneumococcal 7 Conjugate, PCV7 (Prevnar7) Unknown Completed [facility] Pneumococcal 7 Conjugate, PCV7 (Prevnar7) Unknown Completed [facility] IPV Unknown Completed [facility] IPV Unknown Completed [facility] IPV Unknown Completed [facility] TDAP Unknown Completed [facility] Varicella (varivax)(chicken pox) Unknown Completed [facility] Varicella (varivax)(chicken pox) Unknown Completed [facility] SARS-COV-2 COVID-19 PFIZER VACCINE Unknown Completed [facility] SARS-COV-2 COVID-19 PFIZER VACCINE Unknown Completed [facility] DTaP, Unspecified Formulation Unknown Completed [facility] DTaP, Unspecified Formulation Unknown Completed [facility] DTaP, Unspecified Formulation Unknown Completed [facility] DTaP, Unspecified Formulation Unknown Completed [facility] Dtap/ipv Unknown Completed [facility] Influenza Virus Vaccine - Whole Unknown Completed [facility] HEPATITIS A Unknown Completed [facility] HEPATITIS A Unknown Completed [facility] HEPATITIS A Unknown Completed [facility] Comvax Unknown Completed [facility] Comvax Unknown Completed [facility] Comvax Unknown Completed [facility] HIB 4 Dose Schedule Unknown Completed [facility] HPV9 Unknown Completed [facility] HPV9 Unknown Completed [facility] MCV4,NOS Unknown Completed [facility] MMR Unknown Completed [facility] MMR Unknown Completed [facility] Pneumococcal 7 Conjugate, PCV7 (Prevnar7) Unknown Completed [facility] Pneumococcal 7 Conjugate, PCV7 (Prevnar7) Unknown Completed [facility] Pneumococcal 7 Conjugate, PCV7 (Prevnar7) Unknown Completed [facility] Pneumococcal 7 Conjugate, PCV7 (Prevnar7) Unknown Completed [facility] IPV Unknown Completed [facility] IPV Unknown Completed [facility] IPV Unknown Completed [facility] TDAP Unknown Completed [facility] Varicella (varivax)(chicken pox) Unknown Completed [facility] Varicella (varivax)(chicken pox) Unknown Completed [facility] Influenza Virus Vaccine Quad IM, Preserv and ABX Free 6 MO-64 YRS (FLUCELVAX) Unknown Completed [facility] SARS-COV-2 COVID 19 JULES SUCROSE VACCINE 12+, [id number], 0.3 ML (30 MCG), IM PFIZER (MELTON TOP) Unknown Completed [facility] SARS-COV-2 COVID-19 PFIZER VACCINE Unknown Completed [facility] SARS-COV-2 COVID-19 PFIZER VACCINE Unknown Completed [facility] DTaP, Unspecified Formulation Unknown Completed [facility] DTaP, Unspecified Formulation Unknown Completed [facility] DTaP, Unspecified Formulation Unknown Completed [facility] DTaP, Unspecified Formulation Unknown Completed [facility] Dtap/ipv Unknown Completed [facility] Influenza Virus Vaccine - Whole Unknown Completed [facility] HEPATITIS A Unknown Completed [facility] HEPATITIS A Unknown Completed [facility] HEPATITIS A Unknown Completed [facility] Comvax Unknown Completed [facility] Comvax Unknown Completed [facility] Comvax Unknown Completed [facility] HIB 4 Dose Schedule Unknown Completed [facility] HPV9 Unknown Completed [facility] HPV9 Unknown Completed [facility] MCV4,NOS Unknown Completed [facility] MMR Unknown Completed [facility] MMR Unknown Completed [facility] Pneumococcal 7 Conjugate, PCV7 (Prevnar7) Unknown Completed [facility] Pneumococcal 7 Conjugate, PCV7 (Prevnar7) Unknown Completed [facility] Pneumococcal 7 Conjugate, PCV7 (Prevnar7) Unknown Completed [facility] Pneumococcal 7 Conjugate, PCV7 (Prevnar7) Unknown Completed [facility] IPV Unknown Completed [facility] IPV Unknown Completed [facility] IPV Unknown Completed [facility] TDAP Unknown Completed [facility] Varicella (varivax)(chicken pox) Unknown Completed [facility] Varicella (varivax)(chicken pox) Unknown Completed [facility] Influenza Virus Vaccine Quad IM, Preserv and ABX Free 6 MO-64 YRS (FLUCELVAX) Unknown Completed [facility] SARS-COV-2 COVID 19 JULES SUCROSE VACCINE 12+, [id number], 0.3 ML (30 MCG), IM PFIZER (MELTON TOP) Unknown Completed [facility] SARS-COV-2 COVID-19 PFIZER VACCINE Unknown Completed [facility] SARS-COV-2 COVID-19 PFIZER VACCINE Unknown Completed [facility] DTaP, Unspecified Formulation Unknown Completed [facility] DTaP, Unspecified Formulation Unknown Completed [facility] DTaP, Unspecified Formulation Unknown Completed [facility] DTaP, Unspecified Formulation Unknown Completed [facility] Dtap/ipv Unknown Completed [facility] Influenza Virus Vaccine - Whole Unknown Completed [facility] HEPATITIS A Unknown Completed [facility] HEPATITIS A Unknown Completed [facility] HEPATITIS A Unknown Completed [facility] Comvax Unknown Completed [facility] Comvax Unknown Completed [facility] Comvax Unknown Completed [facility] HIB 4 Dose Schedule Unknown Completed [facility] HPV9 Unknown Completed [facility] HPV9 Unknown Completed [facility] MCV4,NOS Unknown Completed [facility] MMR Unknown Completed [facility] MMR Unknown Completed [facility] Pneumococcal 7 Conjugate, PCV7 (Prevnar7) Unknown Completed [facility] Pneumococcal 7 Conjugate, PCV7 (Prevnar7) Unknown Completed [facility] Pneumococcal 7 Conjugate, PCV7 (Prevnar7) Unknown Completed [facility] Pneumococcal 7 Conjugate, PCV7 (Prevnar7) Unknown Completed [facility] IPV Unknown Completed [facility] IPV Unknown Completed [facility] IPV Unknown Completed [facility] TDAP Unknown Completed [facility] Varicella (varivax)(chicken pox) Unknown Completed [facility] Varicella (varivax)(chicken pox) Unknown Completed [facility] Influenza Virus Vaccine Quad IM, Preserv and ABX Free 6 MO-64 YRS (FLUCELVAX) Unknown Completed [facility] SARS-COV-2 COVID 19 JULES SUCROSE VACCINE 12+, [id number], 0.3 ML (30 MCG), IM PFIZER (MELTON TOP) Unknown Completed [facility] SARS-COV-2 COVID-19 PFIZER VACCINE Unknown Completed [facility] SARS-COV-2 COVID-19 PFIZER VACCINE Unknown Completed [facility] DTaP, Unspecified Formulation Unknown Completed [facility] DTaP, Unspecified Formulation Unknown Completed [facility] DTaP, Unspecified Formulation Unknown Completed [facility] DTaP, Unspecified Formulation Unknown Completed [facility] Dtap/ipv Unknown Completed [facility] Influenza Virus Vaccine - Whole Unknown Completed [facility] HEPATITIS A Unknown Completed [facility] HEPATITIS A Unknown Completed [facility] HEPATITIS A Unknown Completed [facility] Comvax Unknown Completed [facility] Comvax Unknown Completed [facility] Comvax Unknown Completed [facility] HIB 4 Dose Schedule Unknown Completed [facility] Vital Signs Vital Name Observation Time Observation Value Comments S ource Systolic blood pressure 2023-03-30 15:08:00 121 mm[Hg] [facility] Diastolic blood pressure 2023-03-30 15:08:00 78 mm[Hg] [facility] Heart rate 2023-03-30 15:08:00 83 [facility] Body temperature 2023-03-30 15:08:00 36.67 Cayla [facility] Body height 2023-03-30 15:08:00 160 cm [facility] Body weight 2023-03-30 15:08:00 45.36 kg [facility] BMI 2023-03-30 15:08:00 17.71 kg/m2 [facility] Oxygen saturation in Arterial blood by Pulse oximetry 2023-03-30 15:08:00 100 /min [facility] Systolic blood pressure 2023-03-16 16:42:00 112 mm[Hg] [facility] Diastolic blood pressure 2023-03-16 16:42:00 82 mm[Hg] [facility] Heart rate 2023-03-16 16:42:00 114 /min [facility] Respiratory rate 2023-03-16 16:42:00 18 /min [facility] Body height 2023-03-16 16:42:00 160 cm [facility] Body weight 2023-03-16 16:42:00 42.91 kg [facility] BMI 2023-03-16 16:42:00 16.76 kg/m2 [facility] Oxygen saturation in Arterial blood by Pulse oximetry 2023-03-16 16:42:00 98 /min [facility] Systolic blood pressure 2023-02-11 17:07:00 124 mm[Hg] [facility] Diastolic blood pressure 2023-02-11 17:07:00 90 mm[Hg] [facility] Heart rate 2023-02-11 17:07:00 73 /min [facility] Body temperature 2023-02-11 17:07:00 36.33 Cayla [facility] Respiratory rate 2023-02-11 17:07:00 18 /min [facility] Body height 2023-02-11 17:07:00 160 cm [facility] Body weight 2023-02-11 17:07:00 41.476 kg [facility] BMI 2023-02-11 17:07:00 16.20 kg/m2 [facility] Oxygen saturation in Arterial blood by Pulse oximetry 2023-02-11 17:07:00 99 /min [facility] Systolic blood pressure 2022-12-29 21:03:00 114 mm[Hg] [facility] Diastolic blood pressure 2022-12-29 21:03:00 72 mm[Hg] [facility] Heart rate 2022-12-29 21:03:00 69 /[facility]22-12-29 21:03:00 18 /min [facility] Body height 2022-12-29 21:03:00 160 cm [facility] Body weight 2022-12-29 21:03:00 42.003 kg [facility] BMI 2022-12-29 21:03:00 16.40 kg/m2 [facility] Oxygen saturation in Arterial blood by Pulse oximetry 2022-12-29 21:03:00 97 /min [facility] Systolic blood pressure 2022-12-27 18:54:00 118 mm[Hg] [facility] Diastolic blood pressure 2022-12-27 18:54:00 83 mm[Hg] [facility] Heart rate 2022-12-27 18:54:00 69 /min [facility] Body temperature 2022-12-27 18:54:00 37.06 Cayla [facility] Body height 2022-12-27 18:54:00 160 [facility] 2022-12-27 18:54:00 42.185 kg [facility] BMI 2022-12-27 18:54:00 16.47 kg/m2 [facility] Oxygen saturation in Arterial blood by Pulse oximetry 2022-12-27 18:54:00 99 /min [facility] Systolic blood pressure 2022-10-30 18:39:00 94 mm[Hg] [facility] Diastolic blood pressure 2022-10-30 18:39:00 66 mm[Hg] [facility] Heart rate 2022-10-30 18:39:00 76 /min [facility] Body height 2022-10-30 18:39:00 162.6 cm [facility] Body weight 2022-10-30 18:39:00 43.591 kg [facility] BMI 2022-10-30 18:39:00 16.50 kg/m2 [facility] Oxygen saturation in Arterial blood by Pulse oximetry 2022-10-30 18:39:00 100 /min [facility] Systolic blood pressure 2022-08-07 17:16:00 100 mm[Hg] [facility] Diastolic blood pressure 2022-08-07 17:16:00 70 mm[Hg] [facility] Heart rate 2022-08-07 17:16:00 64 /min [facility] Systolic blood pressure 2022-07-17 16:22:00 104 mm[Hg] [facility] Diastolic blood pressure 2022-07-17 16:22:00 69 mm[Hg] [facility] Heart rate 2022-07-17 16:22:00 74 /min [facility] Body height 2022-07-17 16:22:00 160 cm [facility] Body weight 2022-07-17 16:22:00 45.813 kg [facility] BMI 2022-07-17 16:22:00 17.89 kg/m2 [facility] Body mass index (BMI) [Percentile] Per age and sex 2022-07-17 16:22:00 5.88 % [facility] Oxygen saturation in Arterial blood by Pulse oximetry 2022-07-17 16:22:00 98 /min [facility] Systolic blood pressure 2022-07-01 22:12:00 107 mm[Hg] [facility] Diastolic blood pressure 2022-07-01 22:12:00 69 mm[Hg] [facility] Heart rate 2022-07-01 22:12:00 79 /min [facility] Body temperature 2022-07-01 22:12:00 37.17 Cayla [facility] Respiratory rate 2022-07-01 22:12:00 17 /min [facility] Body weight 2022-07-01 22:12:00 45.768 kg [facility] Oxygen saturation in Arterial blood by Pulse oximetry 2022-07-01 22:12:00 98 /min [facility] Systolic blood pressure 2022-06-14 13:06:00 102 mm[Hg] [facility] Diastolic blood pressure 2022-06-14 13:06:00 63 mm[Hg] [facility] Heart rate 2022-06-14 13:06:00 103 /min [facility] Body temperature 2022-06-14 13:05:00 36.67 Cayla [facility] Respiratory rate 2022-06-14 13:05:00 15 /min [facility] Oxygen saturation in Arterial blood by Pulse oximetry 2022-06-14 10:00:00 99 /min [facility] Body height 2022-06-12 15:21:00 162.6 cm [facility] Body weight 2022-06-12 15:21:00 48.988 kg [facility] BMI 2022-06-12 15:21:00 18.54 kg/m2 [facility] Body mass index (BMI) [Percentile] Per age and sex 2022-06-12 15:21:00 11.52 % [facility] Systolic blood pressure 2022-01-31 16:34:00 111 mm[Hg] [facility] Diastolic blood pressure 2022-01-31 16:34:00 74 mm[Hg] [facility] Heart rate 2022-01-31 16:34:00 88 /min [facility] Body height 2022-01-31 16:34:00 160 cm [facility] Body weight 2022-01-31 16:34:00 48.444 kg [facility] BMI 2022-01-31 16:34:00 18.92 kg/m2 [facility] Body mass index (BMI) [Percentile] Per age and sex 2022-01-31 16:34:00 16.52 % [facility] Oxygen saturation in Arterial blood by Pulse oximetry 2022-01-31 16:34:00 97 /min [facility] Procedures Procedure Date / Time Performed Performing Clinician Source CBC WITH DIFF 2023-03-30 16:02:00 Lisa Pete [facility] SARS-COV-2 COVID 19 JULES SUCROSE VACCINE 12+, , 0.3 ML (30 MCG), IM PFIZER (MELTON TOP) 2023-03-30 15:46:04 Lisa Pete [facility] FLU VACC (), 6 MO-64 YRS, .5ML, IM, QUAD (FLUCELVAX) 2023-03-30 15:34:28 Lisa Pete [facility] LIPASE 2022-12-27 19:28:00 Caren Allen [facility] THYROID STIMULATING HORMONE 2022-12-27 19:28:00 Caren Allen [facility] COMP. METABOLIC PANEL ([id number]) 2022-12-27 19:28:00 Caren Allen [facility] CBC WITH DIFF 2022-12-27 19:28:00 Caren Allen [facility] POCT TEST 2022-12-27 00:00:00 Caren Allen [facility] EXTERNAL PROVIDER RECORDS 2022-05-30 06:01:00 Doctor Unassigned, Tobin [facility] EXTERNAL PROVIDER RECORDS 2022-02-22 05:01:00 Doctor Unassigned, Tobin [facility] Encounters Start Date/Time End Date/Time Encounter Type Admission Type Attending Clinicians Care Facility Care Department Encounter ID Source 2023-06-25 00:00:00 2023-06-25 00:00:00 Refill Lisa Pete [facility] FLORES?[facility] [id number] [facility] 2023-06-23 00:00:00 2023-06-23 00:00:00 Refill Lisa Pete [facility] BRANDY FLORSE?[facility] [id number] [id number] [id number] [id number] [facility] 2023-06-22 00:00:00 2023-06-22 00:00:00 [facility] [id number] [id number] [id number] [id number] [facility] 2023-06-05 00:00:00 2023-06-05 00:00:00 [facility] [id number] [id number] [id number] [id number] [facility] 2023-05-27 00:00:00 2023-05-27 00:00:00 [facility] [id number] [id number] [id number] [id number] [facility] 2023-05-27 00:00:00 2023-05-27 00:00:00 Refill Lisa Pete [facility] BRANDY FLORES?[facility] [id number] [id number] [id number] [id number] [facility] 2023-05-25 14:30:00 2023-05-25 14:30:00 Outpatient R MCLISA Lopez [facility] [id number] [facility] 2023-05-23 00:00:00 2023-05-23 00:00:00 [facility] [id number] [id number] [id number] [id number] [facility] 2023-05-18 11:00:00 2023-05-18 11:00:[address] [facility] [id number] [facility] 2023-05-11 13:30:00 2023-05-11 13:30:00 Outpatient R MCLISA Lopez [facility] [id number] [facility] 2023-05-04 00:00:00 2023-05-04 00:00:00 [facility]DA[facility] [id number] [id number] [id number] [id number] [facility] 2023-05-01 13:00:00 2023-05-01 13:00:00 Outpatient R [facility]ICOLE [facility] [id number] [facility] 2023-05-01 00:00:00 2023-05-01 00:00:00 Patient Secure Msg Yanci [facility] SANDRA?GLENDAHeydi [facility] [id number] 350.1.13.10 [id number] [id number] [facility] 2023-04-30 00:00:00 2023-04-30 00:00:00 Refill McLisa lopez [facility]DRA?GLENDAHeydi [facility] [id number] [id number] 4.2.7.2.686 [id number] 044 [id number] [facility] 2023-04-30 00:00:00 2023-04-30 00:00:00 Patient Secure [facility] 1..840.114 350.1.13.10 4.2.7.2.686 [id number] [facility] 2023-04-27 00:00:00 2023-04-27 00:00:00 Refill McLisa lopez [facility] 1..840.114 350.1.13.10 4.2.7.2.686 [id number] 044 [id number] [facility] 2023-04-24 14:00:00 2023-04-24 14:00:00 Outpatient R CATHIE WILLS [facility] [id number] [facility] 2023-04-22 00:00:00 2023-04-22 00:00:00 Refill Yanci Lisa [facility] 1.840.114 350.1.13.10 4.2.7.2.686 [id number] [facility] 2023-04-06 00:00:00 2023-04-06 00:00:00 Outpatient R LISA [facility]E [facility] [id number] [facility] 2023-03-30 11:00:00 2023-03-30 11:15:00 Media Reconciliation Specialist Visit Lab, Flaco - Rolando Pete [facility] SAN[facility]DA?[facility] 1..840.114 350.1.13.10 4.2.7.2.686 [id number] [facility] 2023-03-30 10:00:00 2023-03-30 10:57:39 [address] LISA [facility] [id number] [facility] 2023-03-30 10:00:00 2023-03-30 10:57:39 Office Visit [facility] 1.84.114 350.1.13.10 4.2.7.2.686 [id number] [facility] 2023-03-30 00:00:00 2023-03-30 00:00:00 Patient Secure Msg Lisa Pete [facility] 1.84.114 350.1.13.10 4.2.7.2.686 [id number] [id number] [facility] 2023-03-23 13:00:00 2023-03-23 13:00:00 [address] R [address]ISA [facility] [id number] [facility] 2023-03-20 00:00:00 2023-03-20 00:00:00 [facility] 1.84.114 350.1.13.10 4.2.7.2.686 [id number] [id number] [facility] 2023-03-20 00:00:00 2023-03-20 00:00:00 Patient Secure Msg Doctor Unassigned, Tobin [facility] 1.84.114 350.1.13.10 4.2.7.2.686 [id number] [facility] 2023-03-16 11:30:00 2023-03-16 16:18:22 Outpatient R ELMA [facility]ATHIE [facility] [id number] [facility] 2023-03-16 11:30:00 2023-03-16 16:18:22 [facility] 1.84.114 350.1.13.10 4.2.7.2.686 [id number] 092 [id number] [facility] 2023-02-21 00:00:00 2023-02-21 00:00:00 Patient Secure Msg Doctor Unassigned, Tobin [facility] 1.2.840.114 350.1.13.10 4.2.7.2.686 [id number] [id number] [facility] 2023-02-11 12:00:00 2023-02-11 12:20:00 Nurse Visit Nurse, Flaco [facility] Unknown, Attending [facility] 1.84.114 350.1.13.10 4.2.7.2.686 [id number] [facility] 2023-02-11 12:00:00 2023-02-11 12:00:00 [facility] [id number] [facility] 2023-02-11 00:00:00 2023-02-11 00:00:00 Nurse Triage Aye Queen [facility] 1.0.114 350.1.13.10 4.2.7.2.686 [id number] [facility] 2023-02-08 00:00:00 2023-02-08 00:00:00 Jennifer Tobias [facility] 1.2840.114 350.1.13.10 4.2.7.2.686 [id number] 044 [id number] [facility] 2023-01-29 00:00:00 2023-01-29 00:00:00 Adelaide Dias [facility] 1.2840.114 350.1.13.10 4.2.7.2.686 [id number] 044 [id number] [facility] 2023-01-29 00:00:00 2023-01-29 00:00:00 RefAdelaide Sim [facility] 1.114 350.1.13.10 4.2.7.2.686 [id number] 044 [id number] [facility] 2023-01-16 00:00:00 2023-01-16 00:00:00 [facility] 1.114 350.1.13.10 4.2.7.2.686 [id number] [id number] [facility] 2023-01-02 00:00:00 2023-01-02 00:00:[address] [facility] [id number] [facility] 2023-01-02 00:00:00 2023-01-02 00:00:00 Patient Secure Msg Doctor Unassigned, Tobin [facility] 1.114 350.1.13.10 4.2.7.2.686 [id number] [id number] [facility] 2022-12-29 16:00:00 2022-12-29 16:31:[address] [facility] [id number] [facility] 2022-12-29 16:00:00 2022-12-29 16:31:37 [facility] Visit [facility] 1.114 350.1.13.10 4.2.7.2.686 [id number] 092 [id number] [facility] 2022-12-27 15:15:00 2022-12-27 15:30:00 Media Reconciliation Specialist Visit Lab, Caren Jerome [facility] 1.114 350.1.13.10 4.2.7.2.686 [id number] [facility] 2022-12-27 13:30:00 2022-12-27 14:18:[address] [facility] [id number] [facility] 2022-12-27 13:30:00 2022-12-27 14:18:21 Office Visit Caren Allen Heydi [facility] 1.2840.114 350.1.13.10 4.2.7.2.686 [id number] 044 [id number] [facility] 2022-12-14 00:00:00 2022-12-14 00:00:00 [facility] 1.2840.114 350.1.13.10 4.2.7.2.686 [id number] [id number] [facility] 2022-12-13 00:00:00 2022-12-13 00:00:00 Telephone Nicole Willsssica [facility] 1.2840.114 350.1.13.10 4.2.7.2.686 [id number] 092 [id number] [facility] 2022-12-13 00:00:00 2022-12-13 00:00:00 Telephone Nicole Willsssica [facility] 1.2840.114 350.1.13.10 4.2.7.2.686 [id number] [id number] [facility] 2022-10-30 13:30:00 2022-10-30 14:08:40 Outpatient R NICOLE WILL[address]SICA [facility] [id number] [facility] 2022-10-30 13:30:00 2022-10-30 14:08:40 [facility] 1.2840.114 350.1.13.10 4.2.7.2.686 [id number] [facility] 2022-10-06 10:30:00 2022-10-06 10:30:00 Outpatient R CATHIE [facility]S [facility] [id number] [facility] 2022-08-07 11:00:00 2022-08-07 11:31:51 Outpatient R CATHIE [facility]S [facility] [id number] [facility] 2022-08-07 11:00:00 2022-08-07 11:31:51 Office Visit Nicole Willsssica [facility] 1.84.114 350.1.13.10 4.2.7.2.686 [id number] [facility] 2022-07-17 09:40:00 2022-07-17 10:29:18 Outpatient [address]ER BESS [facility] [id number] [facility] 2022-07-17 09:40:00 2022-07-17 10:29:18 [facility] 1.84.114 350.1.13.10 4.2.7.2.686 [id number] [facility] 2022-07-01 16:00:00 2022-07-01 16:52:48 Outpatient R CATHIE HERN[facility]NDEZ [facility] [id number] [facility] 2022-07-01 16:00:00 2022-07-01 16:52:48 Urgent Care Cathie Hernández Unknown, Attending [facility] 1.114 350.1.13.10 4.2.7.2.686 [id number] [facility] 2022-06-15 00:00:00 2022-06-15 00:00:00 Transition of Care Rose Smalls 1..114 350.1.13.10 4.2.7.2.686 [id number] [facility] 2022-06-15 00:00:00 2022-06-15 00:00:00 Tyler Marino [facility] 1.2.840.114 350.1.13.10 4.2.7.2.686 [id number] [id number] [facility] 2022-06-12 08:59:00 2022-06-14 13:20:00 Inpatient R [facility] [id number] [facility] 2022-06-12 08:59:00 2022-06-14 13:20:00 [facility] 1.[facility].114 350.1.13.10 4.2.7.2.686 [id number] [facility] 2022-06-08 00:00:00 2022-06-08 00:00:00 Refill Doctor Unassigned, Tobin [facility] 1.2.840.114 350.1.13.10 4.2.7.2.686 [id number] [id number] [facility] 2022-05-30 00:00:00 2022-05-30 00:00:00 Orders Only Doctor Unassigned, Tobin [facility] 1.2.840.114 350.1.13.10 4.2.7.2.686 [id number] [facility] 2022-05-29 08:30:00 2022-05-29 08:30:[address] [facility] [id number] [facility] 2022-05-18 08:45:51 2022-05-18 23:59:00 Outpatient TYLER BESS [facility] [id number] [facility] 2022-05-18 08:45:51 2022-05-18 23:59:00 Hospital Encounter Tyler Alicia [facility], [facility] Eeg MACRINA [facility] 1..840.114 350.1.13.10 4.2.7.2.686 [id number] [facility] 2022-05-10 00:00:00 2022-05-10 00:00:00 Refill Tyler Alicia [facility] 1.840.114 350.1.13.10 4.2.7.2.686 [id number] [facility] 2022-04-03 08:30:00 2022-04-03 08:30:[address] [facility] [id number] [facility] 2022-03-13 08:30:00 2022-03-13 08:30:[address] [facility] [id number] [facility] 2022-03-10 09:15:00 2022-03-10 09:15:[address] [facility] [id number] [facility] 2022-03-08 00:00:00 2022-03-08 00:00:00 Refill Doctor Unassigned, Tobin [facility] 1.840.114 350.1.13.10 4.2.7.2.686 [id number] [facility] 2022-03-08 00:00:00 2022-03-08 00:00:00 Patient Secure Msg Doctor Unassigned, Tobin MACR[facility] 1.840.114 350.1.13.10 4.2.7.2.686 [id number] [id number] [facility] 2022-02-22 00:00:00 2022-02-22 00:00:00 Orders Only Doctor Unassigned, Tobin [address]114 350.1.13.10 4.2.7.2.686 [id number] [facility] 2022-02-06 00:00:00 2022-02-06 00:00:00 Refill Doctor Unassigned, Tobin [facility] 1..840.114 350.1.13.10 4.2.7.2.686 [id number] [facility] 2022-02-01 00:00:00 2022-02-01 00:00:00 Telephone MaralTyler [facility] 1.840.114 350.1.13.10 4.2.7.2.686 [id number] [facility] 2022-01-31 11:20:00 2022-01-31 12:03:02 [address] [facility] [id number] [facility] 2022-01-31 11:20:00 2022-01-31 12:03:02 Office Visit Maral Tyler Lo[facility] 1..840.114 350.1.13.10 4.2.7.2.686 [id number] [facility] 2022-01-31 11:20:00 2022-01-31 11:20:00 Outpatient R TYLER ALICIA [facility] [id number] [facility] 2022-01-27 00:00:00 2022-01-27 00:00:00 Patient Secure Msg Doctor Unassigned, Tobin [facility] 1..840.114 350.1.13.10 4.2.7.2.686 [id number] [facility] 2022-01-23 00:00:00 2022-01-23 00:00:00 Telephone [facility] 1.2.840.114 350.1.13.10 4.2.7.2.686 [id number] 092 [id number] [facility] 2022-01-10 00:00:00 2022-01-10 00:00:00 Telephone Tyler Alicia [facility] 1.2.840.114 350.1.13.10 4.2.7.2.686 [id number] 092 [id number] [facility] 2021-12-23 13:40:00 2021-12-23 15:02:47 Office Visit Tyler Alicia [facility] FL[facility] 1.2.840.114 350.1.13.10 4.2.7.2.686 [id number] 092 [id number] [facility] 2021-12-23 13:40:00 2021-12-23 15:02:47 Office Visit Tyler Alicia [facility] 1.2.840.114 350.1.13.10 4.2.7.2.686 [id number] [id number] [facility] 2021-12-23 13:40:00 2021-12-23 15:02:47 [address] BESS [facility] [id number] [facility] 2021-12-23 08:30:00 2021-12-23 09:02:[address] [facility] [id number] [facility] 2021-12-23 08:30:00 2021-12-23 09:02:[address] [facility] [id number] [facility] 2021-12-23 08:30:00 2021-12-23 09:02:[address] [facility] [id number] [facility] 2021-12-23 08:30:00 2021-12-23 09:02:17 Office Visit Tim Janeen [facility] 1..840.114 350.1.13.10 4.2.7.2.686 [id number] [id number] [facility] 2021-12-23 08:30:00 2021-12-23 08:30:00 Outpatient R JANEEN DUMONT [facility] [id number] [facility] 2021-12-23 00:00:00 2021-12-23 00:00:00 Telephone Tyler Alicia [facility] 1..840.114 350.1.13.10 4.2.7.2.686 [id number] 092 [id number] [facility] 2021-12-23 00:00:00 2021-12-23 00:00:00 Orders Only Doctor Unassigned, Tobin [facility] 1.840.114 350.1.13.10 4.2.7.2.686 [id number] [facility] 2021-12-17 00:00:00 2021-12-17 00:00:00 Telephone Tim Janeen [facility] 1.840.114 350.1.13.10 4.2.7.2.686 [id number] [id number] [facility] 2021-12-07 00:00:00 2021-12-07 00:00:00 [facility] 1..840.114 350.1.13.10 4.2.7.2.686 [id number] [id number] [facility] 2021-12-06 10:00:00 2021-12-06 10:15:00 Media Reconciliation Specialist Visit Lab, Flaco Marshall Yanci [facility] 1.2.840.114 350.1.13.10 4.2.7.2.686 [id number] [facility] 2021-12-06 10:00:00 2021-12-06 10:00:00 Outpatient R LISA [facility]E [facility] [id number] [facility] 2021-12-06 09:30:00 2021-12-06 09:46:14 [facility] [id number] [facility] 2021-12-06 09:30:00 2021-12-06 09:46:14 Office Visit Tim Janeen Pete [facility] 1.2.840.114 350.1.13.10 4.2.7.2.686 [id number] [facility] 2021-12-06 09:30:00 2021-12-06 09:46:[address] [facility] [id number] [facility] Results Test Description Test Time Test Comments Results Result Co mments Source [id number] 23:42:30 * Test Item Value Reference Range Interpretation Comme nts TSH (test code = 1302018267) 1.90 See_Comment [Automated messa ge] The system which generated this result transmitted reference range: 0.45 - 4.70 mIU/L. The reference range was not used to interpret this result as normal/abnormal. Lab Interpretation (test code = 86239-2) Normal [facility] [id number] 23:42:30 * Test Item Value Reference Range Interpretation Comme nts TSH (test code = 6339299183) 1.90 See_Comment [Automated messa ge] The system which generated this result transmitted reference range: 0.45 - 4.70 mIU/L. The reference range was not used to interpret this result as normal/abnormal. Lab Interpretation (test code = 83281-9) Normal [facility] METABOLIC PANEL (86824)2022-12-27 23:12:48* Test Item Value Reference Range Interpretation Comme nts NA (test code = 0081845885) 141 mmol/L 135-145 K (test code = 8557575752) 4.4 mmol/L 3.5-5.0 CL (test code = 2968702406) 110 mmol/L 98-108 H CO2 TOTAL (test code = 3557434836) 21 mmol/L 23-31 L AGAP (test code = 4592873451) 10 2-16 BUN (test code = 7736833539) 5 mg/dL 7-23 L GLUCOSE (test code = 0088026120) 103 mg/dL 70-110 CREATININE (test code = 5319058123) 0.77 mg/dL 0.50-1.04 TOTAL BILI (test code = 2978405179) 0.6 mg/dL 0.1-1.1 CALCIUM (test code = 7398274586) 9.6 mg/dL 8.6-10.6 T PROTEIN (test code = 9692327803) 7.6 g/dL 6.3-8.2 ALBUMIN (test code = 7122295884) 4.6 g/dL 3.5-5.0 ALK PHOS (test code = 4907211303) 60 U/L 34-122 ALTv (test code = 1742-6) 28 U/L 5-35 AST(SGOT) (test code = 4670348139) 29 U/L 13-40 eGFR (test code = 8935541758) 96.6 mL/min/1.73m2 TIMOTHY (test code = TIMOTHY) Association of Glomerular Filtration Rate (GFR) and Staging of Kidney Disease* + --+ --+ ------+| GFR (mL/min/1.73 m2) ?| With Kidney Damage ?| ?Without Kidney Damage+ --------+ --------+ +| ?>90 ?| ?Stage one ?| ? Normal ?+ ---+ ---+ -------+| ?60-89 ?| ?Stage two ?| ? Decreased GFR ? + --+ --+ ------+| ?30-59 ?| ?Stage three ?| ? Stage three ? + --+ --+ ------+| ?15-29 ?| ?Stage four ? | ? Stage four ?+ ---+ ---+ -------+| ?<15 (or dialysis) ? ?| ?Stage five ? | ? Stage five ?+ ---+ ---+ -------+ *Each stage assumes the associated GFR level has been in effect for at least three months. ?Stages 1 to 5, with or without kidney disease, indicate chronic kidney disease. Notes: Determination of stages one and two (with eGFR >59mL/min/1.73 m2) requires estimation of kidney damage for at least three months as defined by structural or functional abnormalities of the kidney, manifested by either:Pathological abnormalities or Markers of kidney damage (including abnormalities in the composition of the blood or urine or abnormalities in imaging tests). Lab Interpretation (test code = 64020-5) Abnormal [facility]. METABOLIC PANEL (49291)2022-12-27 23:12:48* Test Item Value Reference Range Interpretation Comme nts NA (test code = 2741197828) 141 mmol/L 135-145 K (test code = 3894649357) 4.4 mmol/L 3.5-5.0 CL (test code = 5793393009) 110 mmol/L 98-108 H CO2 TOTAL (test code = 0467575709) 21 mmol/L 23-31 L AGAP (test code = 5269933696) 10 2-16 BUN (test code = 9505938795) 5 mg/dL 7-23 L GLUCOSE (test code = 4014521975) 103 mg/dL 70-110 CREATININE (test code = 3104787415) 0.77 mg/dL 0.50-1.04 TOTAL BILI (test code = 9055454854) 0.6 mg/dL 0.1-1.1 CALCIUM (test code = 6616057810) 9.6 mg/dL 8.6-10.6 T PROTEIN (test code = 4462965031) 7.6 g/dL 6.3-8.2 ALBUMIN (test code = 1225345730) 4.6 g/dL 3.5-5.0 ALK PHOS (test code = 8676379026) 60 U/L 34-122 ALTv (test code = 1742-6) 28 U/L 5-35 AST(SGOT) (test code = 4880253772) 29 U/L 13-40 eGFR (test code = 7636883092) 96.6 mL/min/1.73m2 TIMOTHY (test code = TIMOTHY) Association of Glomerular Filtration Rate (GFR) and Staging of Kidney Disease* + --+ --+ ------+| GFR (mL/min/1.73 m2) ?| With Kidney Damage ?| ?Without Kidney Damage+ --------+ --------+ +| ?>90 ?| ?Stage one ?| ? Normal ?+ ---+ ---+ -------+| ?60-89 ?| ?Stage two ?| ? Decreased GFR ? + --+ --+ ------+| ?30-59 ?| ?Stage three ?| ? Stage three ? + --+ --+ ------+| ?15-29 ?| ?Stage four ? | ? Stage four ?+ ---+ ---+ -------+| ?<15 (or dialysis) ? ?| ?Stage five ? | ? Stage five ?+ ---+ ---+ -------+ *Each stage assumes the associated GFR level has been in effect for at least three months. ?Stages 1 to 5, with or without kidney disease, indicate chronic kidney disease. Notes: Determination of stages one and two (with eGFR >59mL/min/1.73 m2) requires estimation of kidney damage for at least three months as defined by structural or functional abnormalities of the kidney, manifested by either:Pathological abnormalities or Markers of kidney damage (including abnormalities in the composition of the blood or urine or abnormalities in imaging tests). Lab Interpretation (test code = 28799-9) [facility]normal [facility] 23:12:07* Test Item Value Reference Range Interpretation Comme nts LIPASE (test code = 8962854952) 54 U/L 0-220 Lab Interpretation (test cod e = 47286-2) Normal [facility] 23:12:07* Test Item Value Reference Range Interpretation Comme nts LIPASE (test code = 5299965992) 54 U/L 0-220 Lab Interpretation (test cod e = 83880-1) Normal [facility] WITH [id number] 21:17:46* Test Item Value Reference Range Interpretation Comme nts WBC (test code = 6690-2) 6.34 See_Comment [Automated messa ge] The system which generated this result transmitted reference range: 4.30 - 11.10 10*3/?L. The reference range was not used to interpret this result as normal/abnormal. RBC (test code = 789-8) 4.35 See_Comment [Automated Aiboa ge] The system which generated this result transmitted reference range: 3.93 - 5.25 10*6/?L. The reference range was not used to interpret this result as normal/abnormal. HGB (test code = 718-7) 12.4 g/dL 11.6-15.0 HCT (test code = 4544-3) 38.9 % 35.7-45.2 MCV (test code = 787-2) 89.4 fL 80.6-95.5 MCH (test code = 785-6) 28.5 pg 25.9-32.8 MCHC (test code = 786-4) 31.9 g/dL 31.6-35.1 RDW-SD (test code = 62051-1) 42.2 fL 39.0-49.9 RDW-CV (test code = 788-0) 12.8 % 12.0-15.5 PLT (test code = 777-3) 289 See_Comment [Automated [employer]ib[employer] ge] The system which generated this result transmitted reference range: 166 - 358 10*3/?L. The reference range was not used to interpret this result as normal/abnormal. MPV (test code = 13557-4) 11.5 fL 9.5-12.9 NRBC/100 WBC (test code = 6046552244) 0.0 See_Comment [Automated me ssage] The system which generated this result transmitted reference range: 0.0 - 10.0 /100 WBCs. The reference range was not used to interpret this result as normal/abnormal. NRBC x10^3 (test code = [id number]) See_Comment [Automated me ssage] The system which generated this result transmitted reference range: 10*3/?L. The reference range was not used to interpret this result as normal/abnormal. GRAN MAT (NEUT) % (test code = 770-8) 53.4 % IMM GRAN % (test code = 0732786200) 0.20 % LYMPH % (test code = 736-9) 36.8 % MONO % (test code = 5905-5) 7.9 % EOS % (test code = 713-8) 0.6 % BASO % (test code = 706-2) 1.1 % GRAN MAT x10^3(ANC) (test code = 2040779435) 3.39 10*3/uL 1.88-7.09 IMM GRAN x10^3 (test code = 6054665130) 0.00-0.06 LYMPH x10^3 (test code = 731-0) 2.33 10*3/uL 1.32-3.29 MONO x10^3 (test code = 742-7) 0.50 10*3/uL 0.33-0.92 EOS x10^3 (test code = 711-2) 0.04 10*3/uL 0.03-0.39 BASO x10^3 (test code = 704-7) 0.07 10*3/uL 0.01-0.07 [facility] WITH [id number] 21:17:46* Test Item Value Reference Range Interpretation Comme nts WBC (test code = 6690-2) 6.34 See_Comment [Automated [employer]ib[employer] ge] The system which generated this result transmitted reference range: 4.30 - 11.10 10*3/?L. The reference range was not used to interpret this result as normal/abnormal. RBC (test code = 789-8) 4.35 See_Comment [Automated Aiboa ge] The system which generated this result transmitted reference range: 3.93 - 5.25 10*6/?L. The reference range was not used to interpret this result as normal/abnormal. HGB (test code = 718-7) 12.4 g/dL 11.6-15.0 HCT (test code = 4544-3) 38.9 % 35.7-45.2 MCV (test code = 787-2) 89.4 fL 80.6-95.5 MCH (test code = 785-6) 28.5 pg 25.9-32.8 MCHC (test code = 786-4) 31.9 g/dL 31.6-35.1 RDW-SD (test code = 95553-7) 42.2 fL 39.0-49.9 RDW-CV (test code = 788-0) 12.8 % 12.0-15.5 PLT (test code = 777-3) 289 See_Comment [Automated messa ge] The system which generated this result transmitted reference range: 166 - 358 10*3/?L. The reference range was not used to interpret this result as normal/abnormal. MPV (test code = 46230-1) 11.5 fL 9.5-12.9 NRBC/100 WBC (test code = 7184032147) 0.0 See_Comment [Automated me ssage] The system which generated this result transmitted reference range: 0.0 - 10.0 /100 WBCs. The reference range was not used to interpret this result as normal/abnormal. NRBC x10^3 (test code = 4796404148) See_Comment [Automated me ssage] The system which generated this result transmitted reference range: 10*3/?L. The reference range was not used to interpret this result as normal/abnormal. GRAN MAT (NEUT) % (test code = 770-8) 53.4 % IMM GRAN % (test code = 6063474598) 0.20 % LYMPH % (test code = 736-9) 36.8 % MONO % (test code = 5905-5) 7.9 % EOS % (test code = 713-8) 0.6 % BASO % (test code = 706-2) 1.1 % GRAN MAT x10^3(ANC) (test code = 0991894020) 3.39 10*3/uL 1.88-7.09 IMM GRAN x10^3 (test code = 1573941994) 0.00-0.06 LYMPH x10^3 (test code = 731-0) 2.33 10*3/uL 1.32-3.29 MONO x10^3 (test code = 742-7) 0.50 10*3/uL 0.33-0.92 EOS x10^3 (test code = 711-2) 0.04 10*3/uL 0.03-0.39 BASO x10^3 (test code = 704-7) 0.07 10*3/uL 0.01-0.07 [facility]* Test Item Value Reference Range Interpretation Comme nts POCT PREG (test code = 1605) Negative On board controls acceptable with C Line (test code = 3574) Yes POCT PREG LOT # (test code = 3575) POCT PREG TEST DATE ( test code = 3576) [facility] 20:36:00* Test Item Value Reference Range Interpretation Comme nts POCT PREG (test code = 1605) Negative On board controls acceptable with C Line (test code = 3574) Yes POCT PREG LOT # (test code = 3575) POCT PREG TEST DATE ( test code = 3576) [facility] Notes Date/Time Note Provider Source 2023-06-26 07:29:13 HC9MK7VZLrD+bmvg+HC0kMQuq34AmKrPTvV NTVN9v4YF9Tgc+0Wg9iFyR/YkX9/p2469-8 -16T07:29:13 Last Refilled:Disp Refills Start End DAWbusPIRone 10 mg tablet 180 tablet 0 06/05/2023 -- --Sig: Take 1 tablet by mouth 2 (two) times daily as needed (anxiety).Sent to pharmacy as: busPIRone 10 mg tablet (BUSPAR)Class: eRXRoute: OralOrder: [id number]/Time Signed: 06/05/2023 12:31E-Prescribing Status: Receipt confirmed by pharmacy (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 2.383704|[id number] for patient iipm23130-3InqpQXRBWNBNGYGEwjdzjvwf C-CDA narrative wblh646689264Agfhy J Bunte RN[address] Mfjg[id number] 1LFSAVZVZWSUZNVPTAXYNKL8283-41-27M6 7:30:261.2.840.555927.1.72.3.15|1.2 .840.647497.1.13.104.2.7.2.727879_1 [id number] Deirdre Watters RN [facility] 2023-06-25 10:40:58 WwR6Fvk3uOtGfWSZYL7eiqbOYVZL47bvlSJ UROMm7cRKTfDZC7Me0O9ymPYR9qu/06-25T10:40:58 Images from the original note were not included.arleen from pharmacy: Pantoprazole Sodium 40 MG Oral Tablet Delayed ReleaseWill file in chart as: PANTOPRAZOLE 40 mg EC tabletSig: Take 1 tablet by mouth in the morning.Original sig: TAKE 1 TABLET BY MOUTH IN THE MORNINGDisp: 30 tablet Refills: 0Start: 06/23/2023lass: eRXFor: Epigastric abdominal pain, Anxiety and depressionLast ordered: 4 weeks ago (05/28/2023) by Tariq Sal refill: 05/28/2023Rx #: [id number]: Antiulcer - Proton Pump Inhibitors Yqrrle3406/23/2023 12:53 PMProtocol Details Valid encounter within last 12 monthsTo be filled at: [address]Recent VisitsDate Type Provider Dept10/20/23 Office Visit Lisa Pete FNP [facility]12/27/22 Office Visit Caren Allen PA [facility] Fam MedShowing recent visits within past 540 days with a meds authorizing provider and meeting all other requirementsFuture AppointmentsNo visits were found meeting these conditions.Showing future appointments within next 150 days with a meds authorizing provider and meeting all other requirements 61740-7Ncvuvexmq encounter VpaeZD4663-64-35H21:46:13Telephone encounter NoteTXT1.2.840.099778.1.13.104.2.7. 2.094176|[id number] for patient uxjo11960-1YlhcERRAMSDDXIDUkarsztbt C-CDA narrative Postmates[id number] 2HFSMBUKXTYPMTGGPVVNUZI4552-62-17B1 0:46:131.2.840.458853.1.72.3.15|1.2 .840.092210.1.13.104.2.7.2.727879_1 [id number] [facility] 2023-06-22 15:29:51 ZzJdp44dpYQq1JC3prHPCir0QZ6pdU9TptD RCXqosAQbTqxr5v9orVFSOIFTtJE69456-3 06-22T15:29:51 Please schedule follow up appointment 93025-9Ufxywnvae encounter AgvjGH1980-28-40R71:29:51Telephone encounter NoteTXT1.2.840.547536.1.13.104.2.7. 2.435494|[id number] for patient cdix94254-4NuofBOQLNUPVDZUKfhyrufzm C-CDA narrative textUTMB76 [address] StreetLvkqUujiklykbIeftvnosqBTMZ101567476 0IRZJRWXUQKQNTILCACHPKI8541-25-69E1 5:29:511.2.840.737079.1.72.3.15|1.2 .840.997501.1.13.104.2.7.2.727879_1 [id number] [facility] 2023-06-22 15:13:41 gzAqfY5cBaezJygH37mlxgq3RQ8Bs4NeraQ Yqb+fP7V1wrFXkqJmK9RxhnLAgzCQ7311-2 06-22T15:13:41 Images from the original note were not included.RADHA: 03/30/23 NoteRTo in 6 weeksDont stop medication without speaking to providerEncounter to establish careComment: acute stablePlan: RTO for MW around birthdayLast Refilled: 03/30/23Notes:[facility] [address] [place] [address] DRPhone: Jgaymv VisitsDate Type Provider Dept1 Office Visit Lisa Pete FNP [facility] Med12/27/22 Office Visit Caren Allen PA [facility] MedShowing recent visits within past 540 days with a meds authorizing provider and meeting all other requirementsFuture AppointmentsNo visits were found meeting these conditions.Showing future appointments within next 150 days with a meds authorizing provider and meeting all other requirementsName from pharmacy: Sertraline HCl 25 MG Oral TabletWill file in chart as: SERTRALINE 25 mg tabletPossible duplicate: Hover to review recent actions on this medicationSig: Take 1 tablet by mouth in the morning.Original sig: TAKE 1 TABLET BY MOUTH IN THE MORNINGDisp: 90 tablet Refills: 0Start: 06/22/2023lass: eRXFor: Anxiety and depressionLast ordered: 2 months ago (03/30/2023) by Tariq Sal refill: 03/30/2023Rx #: [id number]: Antidepressants Dbbvwz0706/22/2023 12:43 PMProtocol Details Manual Review: Verify no changes in dose in the last 3 monthsValid encounter within last 12 monthsTo be filled at: [facility] [address] [place] [address] DR 37[address]-4Jrewrxssw encounter QhdnOZ5316-20-69W82:15:12Telephone encounter NoteTXT1.2.840.848255.1.13.104.2.7. 2.295775|[id number] for patient gdvh55829-6LjkdRVTKFPQHHYOSgctzibrf C-CDA narrative sxnm275079001Mnyqlo L Cantu MA[address] FkxxUedwcyzwhAcfoarqyrZHRN609393072 3KRDZNCXRFPIWHYFNTYOESJ5949-87-24K4 5:15:121.2.840.330225.1.72.3.15|1.2 .840.132033.1.13.104.2.7.2.727879_1 [id number] Hilary Saavedra [facility] 2023-02-11 11:32:00 sA6IDdeBOYscPEegSw2jwq6K1Fvbp9fpVg6 XphCuUmQ/TtV/RbFbe91V0UHJZCSZ5686-9 02-11T11:32:00 Regarding: nausea, racing heart, vomiting, and no appetite----- Message from Jenifer Oneill sent at 02/11/2023 11:18 AM CDT -----[facility] 17 [facility] the pt has been on kepra and zonisamide and is experiencing nausea, racing heart, vomiting, and no appetite. They are wanting to speak with a nurse.[id number] signed by Aye Queen RN at 02/11/2023 11:32 AM IIB78400-5Hyufmviwt encounter EcrjXY8124-33-93A38:32:34Telephone encounter NoteTXT1.2.840.674727.1.13.104.2.7. 2.614938|[id number] for patient phst03264-9AfbyGI382076047Ythdvngyd L Ruben RNUT[id number] 2QBUSFHFQWYWGBJRPZTNNLO8205-58-05Z1 1:32:341.2.840.279841.1.72.3.15|1.2 .840.172592.1.13.104.2.7.2.727879_1 [id number] Aye Queen RN [facility] 2023-02-11 11:32:00 Flt7Pnfy1pd4232O6sdiIeePPmg8foKl8iV mM/ETfLj4pBpnd1WjkTQIu6aHdZYb8803-2 1:32:00 Reason for Disposition Patient already left for the hospital/clinic. Spoke with mother, states that father has already left with patient to be taken to an .Protocols used: No Contact or Duplicate Contact Kqkm-FAYVF-ZZGntwzpgnulqjzf signed by Aye Queen RN at 02/11/2023 11:44 AM RYQ59396-6Fqnbrizlt encounter VmtxRS0531-75-97R08:44:24Telephone encounter NoteTXT1.2.840.672741.1.13.104.2.7. 2.476953|2250221827HQWuegiwpzz for patient hfqg27299-0TimoMGYBBNPSVI[id number] 1LIBAZMMEXOXDNPBRCDWMSC6643-85-73X1 1:44:241.2.840.683612.1.72.3.15|1.2 .840.503223.1.13.104.2.7.2.727879_1 [id number] [facility] 2023-02-08 14:06:59 rszZ8VJfp0QEVouJFMNLEoRVfP5t6cYsUct MgEFIYk3Pedsri3Y3j8usFmTPqMMv4706-4 4:06:59 02/23/23 Per last chart note, medication refilled 44440-0Cnmqysiev encounter SyomYY6293-89-89H04:08:57Telephone encounter NoteTXT1.2.840.964447.1.13.104.2.7. 2.812678|[id number] for patient mkqj64170-2MrvaEVCCHSRAQB[address][id number] 1COUBCXZOWODIREHKWVQGJR5478-88-20N7 4:08:571.2.840.859838.1.72.3.15|1.2 .840.260021.1.13.104.2.7.2.727879_1 [id number] [facility] 2023-02-08 14:06:54 XC4KKUlxwRRhqHeU1qmUFLw0bBRTC8uz01F jdANK7VVCH2n3zqE5AWqrZGA32EJh7334-9 4:06:54 Message from SPEEDELO:Refills have been requested for the following medications: ondansetron (ZOFRAN) 4 mg tablet [KIA Cramer]Preferred pharmacy: [facility] [address] [place], [place] [address]Lion method: Pickup 45844-2Fycmjshlc encounter IfeoYX8428-32-19U30:06:54Telephone encounter NoteTXT1.2.840.783091.1.13.104.2.7. 2.491242|[id number] for patient qbqs54229-2YpgwCGZEEYZNDN[id number] 2XIKVGCBQOKAFKDFUWXLLWD4490-47-82R9 4:06:541.2.840.853469.1.72.3.15|1.2 .840.613608.1.13.104.2.7.2.727879_1 [id number] [facility] 2023-01-29 17:39:50 Ufl6TvgScX9oCBkDQSLAmODFN/0VyBcorRH daPVxO+4XUgX8ZmiQ4Fq+NR3HP/io3526-6 7:39:50 Requested Prescriptions Refused Prescriptions Disp Refills ondansetron (ZOFRAN) 4 mg tablet 30 tablet 0 Sig: Take 1 tablet by mouth every 8 (eight) hours as needed for Nausea and Vomiting (N/V). Refused By: ADELAIDE CLEANING Reason for Refusal: Request already responded to by other means (e.g. phone or fax) refilled on 01/16/23 through another encounter 28799-3Wzhgqnjxo encounter KolgJE7478-27-53C01:39:59Telephone encounter NoteTXT1.2.840.194645.1.13.104.2.7. 2.147095|[id number] for patient blrq83730-2NongSWDPDSDJRY[address]vdG[id number] 2GSNWYKAFSELVMHJDHAOXGB0308-94-66E4 7:39:591.2.840.769390.1.72.3.15|1.2 .840.831427.1.13.104.2.7.2.727879_1 [id number] [facility] 2023-01-29 17:39:18 yV3QEN0LW247aPGxY88O21JJDVzMJh1TQtC bc21uI1ioP3ODVhVe1jg31GygWAzI6368-2 :39:18 Message from SPEEDELO:Refills have been requested for the following medications: ondansetron (ZOFRAN) 4 mg tablet [KIA Cramer]Preferred pharmacy: [address] method: Pickup 50949-7Htdrbvfll encounter DwlnHI4919-68-39J68:39:18Telephone encounter NoteTXT1.2.840.742849.1.13.104.2.7. 2.887687|2250348425DHWqfpitzoz for patient tqoj19100-4MswtMTUMGSGBIP[address]vdG[id number] 1DOQQNOQAWKCNDXFIIGFLTY9283-01-54Y4 7:39:181.2.840.953856.1.72.3.15|1.2 .840.883578.1.13.104.2.7.2.727879_1 [id number] [facility] 2023-01-29 17:38:38 LZWaNANHHd8LZZH5ozZRXAa/H8d2Jd39prn zpYYSrF0akrNQ74BTe5eJm7YSqrxm1512-6 7:38:38 Requested Prescriptions Refused Prescriptions Disp Refills ondansetron (ZOFRAN) 4 mg tablet 30 tablet 0 Sig: Take 1 tablet by mouth every 8 (eight) hours as needed for Nausea and Vomiting (N/V). Refused By: ADELAIDE CLEANING Reason for Refusal: Request already responded to by other means (e.g. phone or fax) refilled on 01/16/23 through another encounter 87383-9Ljptomxnd encounter LupjDV7744-29-87H11:38:47Telephone encounter NoteTXT1.2.840.848947.1.13.104.2.7. 2.281940|[id number] for patient ytdl92113-6VfoyFKEXMGVZXT[address]vdG[id number] 5INGLGELPSJVAMTPNPMPNDL5095-73-81G8 7:38:471.2.840.002325.1.72.3.15|1.2 .840.469994.1.13.104.2.7.2.727879_1 [id number] [facility] 2023-01-29 17:36:40 Hiy4IunIS6UZA5nsSoTgnjwXuovFvYcES+G 52IoPtkBiNFK6UasJ7hsN0iSS52nD2685-2 7:36:40 Message from SPEEDELO:Refills have been requested for the following medications: ondansetron (ZOFRAN) 4 mg tablet [KIA Cramer]Preferred pharmacy: [facility] [address] [place] [address] Fritz method: Pickup 84979-6Kkroybsia encounter ZwqwWQ9628-83-19H87:36:40Telephone encounter NoteTXT1.2.840.760419.1.13.104.2.7. 2.738310|[id number] for patient ruoi26679-5JcilQSZLMLOZBV[address] MhbsMhqvluxhvHyuimxcqcUVIL299275370 4YSOPVBOJIKSMEWZEFLMKNP4232-80-39Q5 7:36:401.2.840.006317.1.72.3.15|1.2 .840.544568.1.13.104.2.7.2.727879_1 [id number] [facility] 2023-01-17 16:55:35 YpqqdekkiBzuDx6HhjXyMyL1IW5Zq9o4dXo MSOvtFiQ57LAOYRvNP1d+9qX+GQnU4113-5 6:55:35 Requested Prescriptions Signed Prescriptions Disp Refills ondansetron (ZOFRAN) 4 mg tablet 30 tablet 0 Sig: Take 1 tablet by mouth every 8 (eight) hours as needed for Nausea and Vomiting (N/V). Authorizing Provider: CATHIE WILLS Ordering User: ADELAIDE CLEANING 98246-4Dxwsqgcaw encounter KinyPP0147-38-32G29:57:49Telephone encounter NoteTXT1.2.840.831888.1.13.104.2.7. 2.553837|[id number] for patient ncez65869-1SlbxMV952885394Huqmdg Phillips [address] TclgJlxixnquzJupvrlxylSEKS941413164 7EILDHUUUGZLTJQIFZYHGBX2994-53-50B6 6:57:491.2.840.223085.1.72.3.15|1.2 .840.625896.1.13.104.2.7.2.727879_1 [id number] Adelaide Cleaning LVN [facility] 2022-12-27 15:15:00 RtburVsLGsI0sQuvDxaCTEdHMwzHBLdbxBx KYZTVseBwOAbBjkiIXsfOAOWJZztj4812-2 5:15:00 Images from the original note were not included.Patient stated she left the urine sample at Caren Allen PA office. Is unable to void. Matt Cullen 12/27/2022 2:30 PMVenipuncture collection performed by clean technique on the right anticubitus. Total of 1 attempts were made. Slight pressure and a bandage/dressing were applied to the site(s). The patient experienced no complications. The following specimens were processed according to instructions and sent to [facility] laboratories per lab order on 12/27/2022 LT BLUE SST 3 RED 1 LAV 1 PPT DK GREEN (LiHep) DK GREEN (SodH) MELTON DK BLUE (K2) DK BLUE (S) ACD Blood Culture NIPT/NTD 42823-5Vfqmk MfssKC9784-78-17N08:32:02Nurse NoteTXT1.2.840.992048.1.13.104.2.7. 2.310089|[id number] for patient [id number] 0ZGIXDSQDZPGZDKUCKENLIR6469-04-55S6 4:32:021.2.840.695460.1.72.3.15|1.2 .840.272347.1.13.104.2.7.2.727879_1 [id number] [facility] 2022-12-27 15:15:00 c+lOPgprBZltjc8TVybM+3z8dMTElR1twmq M3FxBt75iroro/4keasKzj04S47/h6864-3 5:15:00 Images from the original note were not included.Patient has been identified by and name and was provided with cup, antiseptic towelette, and clean catch instructions. 1 urine specimen(s) sent. Unpreserved Urine Culture Aptima tube 1 Other urine 24846-7Hfequ PknnOV3349-24-62W98:40:06Nurse NoteTXT1.2.840.757455.1.13.104.2.7. 2.986971|[id number] for patient [id number] 8SOQJLUKDQMTAAQWDXBDVXW4591-08-04E0 4:40:061.2.840.196033.1.72.3.15|1.2 .840.634552.1.13.104.2.7.2.727879_1 [id number] [facility]"
[2023-06-27 13:06] LABS: Absolute Lymphocytes (CBC) 1.2 K/uL (0.7-4.9); Hematocrit 32.5 % (36.0-45.0); Lymphocytes % 14.7 % (15.3-44.8); MCV 83.6 fL (80-100); MPV 8.7 fL (7.6-11.3); Platelets 233 thou/uL (152-406); RBC Red Blood Cell Count 3.88 M/uL (3.86-4.86)
[2023-06-27 13:07] LABS: Specific Gravity 1.017 (1.005-1.030)
[2023-06-27 13:22] LABS: Specific Gravity 1.017 (1.005-1.030); Urine Bacteria <20 /HPF (<20); Urine Bilirubin NEGATIVE (Negative); Urine Blood Negative (Negative); Urine Clarity Extremely Turbid (Clear); Urine Color Light-Orange (Yellow); Urine Glucose NEGATIVE (Negative); Urine Mucus Slight /HPF (None Seen); Urine Protein TRACE (Negative); Urine RBC <5 /HPF (None Seen); Urine Urobilinogen Normal (Normal)
[2023-06-27 13:23] LABS: Bilirubin Total 0.3 mg/dL (0.2-1.0); Potassium 3.5 mEq/L (3.5-5.1); Protein, Total 7.3 g/dL (6.4-8.2)
--- NOTE | 2023-06-27 13:39 | RAD REPORT ---
EXAM DESCRIPTION: CTAbdomen Pelvis W Contrast - 06/27/2023 1:31 pm CLINICAL HISTORY: Abdominal pain. lower abd pain COMPARISON: <Comparisons> TECHNIQUE: Biphasic CT imaging of the abdomen and pelvis was performed with 100 ml non-ionic IV cont rast. All CT scans are performed using dose optimization technique as appropriate and may include automated exposure control or mA/KV adjustment according to patient size. FINDINGS: The lung bases are clear. The liver, spleen, pancreas, adrenal glands and kidneys are within normal limits. No bowel obstruction, free air, free fluid or abscess. There is prominent stool seen retained in the rectum. The appendix is normal. No evidence of significant lymphadenopathy. No suspicious bony findings. IMPRESSION: No acute intra-abdominal or pelvic finding.
--- NOTE | 2023-06-27 14:31 | RAD REPORT ---
EXAM DESCRIPTION: US - Pelvis Complete - 06/27/2023 2:19 pm CLINICAL HISTORY: ABD PAIN Pelvic pain. COMPARISON: Abdomen Pelvis W Contrast dated 06/27/2023 FINDINGS: The uterus is normal in size, shape and echotexture. The uterus measures 6.7 x 4.1 x 2.4 c m. The endometrial stripe measures 6 mm, normal. Both ovaries are normal in size, shape and echotexture. The right ovary measures 2.9 x 2.6 x 2.2 cm. The left ovary measures 3.2 x 2.5 x 2.2 cm. No ovarian or parovarian lesions. No adnexal masses. Normal Doppler blood flow was demonstrated to both ovaries. No significant pelvic ascites. IMPRESSION: Unremarkable study.
--- NOTE | 2023-06-27 14:43 | EDPHYS ---
Physician Documentation [facility] Name: Carlie Hodge Age: 17 yrs Sex: Female : 2005 Arrival Date: 06/27/2023 Time: 12:16 Bed 18 Private MD: ED Physician Huseyin Hicks HPI: 06/27 14:38 This 17 yrs old Black Female presents to ER via EMS with complaints of Abdominal Pain. rn 14:38 The patient presents with abdominal pain in the lower abdomen. Onset: The rn symptoms/episode began/occurred 4 month(s) ago. The symptoms do not radiate. Associated signs and symptoms: Pertinent positives: constipation, Pertinent negatives: blood in stools, diarrhea, fever, shortness of breath. The symptoms are described as achy, crampy. Modifying factors: The symptoms are alleviated by nothing, the symptoms are aggravated by nothing. Severity of pain: At its worst the pain was mild in the emergency department the pain is unchanged. The patient has experienced similar episodes in the past, chronically. Patient reports approximately 4 months of lower abdominal pain. Associated with constipation and nausea. No fever. No gross changes. Has seen GI doctor with an EGD that was normal. Had multiple workups in the past without diagnosis of abdominal pain. No vaginal complaints or discharge. No blood in stool. No family history of inflammatory bowel disease. Patient has colonoscopy scheduled for next week already. Denies .. 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 - Social history:: Smoking status: Patient denies any tobacco usage or history of. - Family history:: not pertinent. - Hospitalizations: : No recent hospitalization is reported. ROS: 14:38 Constitutional: Negative for fever, chills, and weight loss, Cardiovascular: Negative rn for chest pain, palpitations, and edema, Respiratory: Negative for shortness of breath, cough, wheezing, and pleuritic chest pain, Abdomen/GI: Positive for lower abdominal pain Back: Negative for injury and pain, : Negative for injury, bleeding, discharge, and swelling, MS/Extremity: Negative for injury and deformity, Skin: Negative for injury, rash, and discoloration, Neuro: Negative for headache, weakness, numbness, tingling, and seizure, Exam: 14:38 Constitutional: This is a well developed, well nourished patient who is awake, alert, rn and in no acute distress. Cardiovascular: Regular rate and rhythm. No pulse deficits. Respiratory: No increased work of breathing, no retractions or nasal flaring. Abdomen/GI: Soft, mild suprapubic tenderness without focal rebound or guarding. No distention. Skin: Warm, dry MS/ Extremity: Pulses equal, no cyanosis. Neuro: Awake and alert, GCS 15 Vital Signs: 12:30 BP 111 / 65; Pulse 69; Resp 16; Temp 98.2(O); Pulse Ox 100% on R/A; Weight 43.09 kg; me1 Height 5 ft. 3 in. ; Pain 9/10; 13:00 BP 111 / 73; Pulse 73; Resp 14; Pulse Ox 100% on R/A; me1 13:30 BP 118 / 57; Pulse 72; Resp 18; Pulse Ox 99% on R/A; me1 14:55 BP 114 / 70; Pulse 69; Resp 18; Pulse Ox 100% on R/A; me1 12:30 Body Mass Index 16.83 (43.09 kg, 160.02 cm) - Percentile 1.1 % me1 12:30 Pain Scale: Adult me1 MDM: 12:30 Patient medically screened. rn 14:38 ED course: Short time after patient's arrival mother called from [facility] rn accusing me of not taking appropriate care of her daughter with the assumption that it was due to the color of her skin or the fact that she was a female. I assured the mother that that is not the case and she is getting a full ER evaluation that is appropriate for her complaints. I also notified mother that the chance of finding something acute after 4 months of abdominal pain and multiple workups is unlikely and needs to follow-up with the specialist especially the GI doctor. Had long conversation with mother regarding this and seemed happy with answers. None of this came from patient and patient is thankful for care administered and explanations.. 06/27 12:39 Order name: CBC with Diff; Complete Time: 13:25 rn 06/27 12:39 Order name: CMP; Complete Time: 13:25 rn 06/27 12:39 Order name: Lipase; Complete Time: 13:25 rn 06/27 12:39 Order name: Test, Urine; Complete Time: 13:25 rn 06/27 12:39 Order name: Urinalysis w/ reflexes; Complete Time: 13:25 rn 06/27 12:39 Order name: CT Abd/Pelvis - IV Contrast Only; Complete Time: 14:25 rn 06/27 13:55 Order name: Pelvis Complete; Complete Time: 14:34 EDMS 06/27 12:39 Order name: IV Saline Lock; Complete Time: 12:49 rn 06/27 12:39 Order name: Labs collected and sent; Complete Time: 13:00 rn Administered Medications: No medications were administered Disposition Summary: 06/27/23 14:42 Discharge Ordered Notes: Location: Home rn Problem: chronic rn Symptoms: have improved rn Condition: Stable rn Diagnosis - Lower abdominal pain, unspecified rn Followup: rn - With: Private Physician - When: As needed - Reason: Recheck today's complaints, Re-evaluation by your physician Discharge Instructions: - Discharge Summary Sheet rn - Abdominal Pain, Adult rn - Pain Without a Known Cause rn Forms: - Medication Reconciliation Form rn - Thank You Letter rn - Antibiotic 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 EDMS EDMS 13:55 13:37 Transvaginal Study Probe ordered. EDCO EDMS
--- NOTE | 2023-06-27 14:43 | ER ---
Nurse's Notes [facility] Name: Carlie Hodge Age: 17 yrs Sex: Female : 2005 Arrival Date: 06/27/2023 Time: 12:16 Bed 18 Private MD: Diagnosis: Lower abdominal pain, unspecified Presentation: 06/27 12:30 Chief complaint: EMS states: abdominal pain/n/v x 4 months, seeing GI and has had an me1 EGD, has a colonoscopy scheduled for next Sunday. Abdominal pain is worse today with associated mid sternal chest pain that soto. 20 g to RAC. Given zofran 4 mg and reglan 5 mg IV with some relief of n/v. Coronavirus screen: Vaccine status:. Ebola Screen: No symptoms or risks identified at this time. Initial Sepsis Screen: Does the patient meet any 2 criteria? No. Patient's initial sepsis screen is negative. Does the patient have a suspected source of infection? No. Patient's initial sepsis screen is negative. Risk Assessment: Do you want to hurt yourself or someone else? Patient reports no desire to harm self or others. Onset of symptoms is unknown. 12:30 Method Of Arrival: EMS ok1 12:30 Acuity: MARAIA 3 me1 Triage Assessment: 12:33 General: Appears uncomfortable, ill, slender, well groomed, well developed, Behavior is me1 calm, cooperative, appropriate for age. Pain: Complains of pain in right lower quadrant and left lower quadrant Pain does not radiate. Pain currently is 9 out of 10 on a pain scale. Quality of pain is described as crampy, sharp, Pain began 4 months ago. Worse today. Is continuous. Neuro: Level of Consciousness is awake, alert, obeys commands, Oriented to person, place, time, situation, Appropriate for age. Cardiovascular: Capillary refill < 3 seconds Patient's skin is warm and dry. Respiratory: Airway is patent Respiratory effort is even, unlabored, Respiratory pattern is regular, symmetrical. GI: GI: Abdomen is flat, Reports lower abdominal pain, diarrhea, nausea, vomiting, since 4 months ago. Abdominal pain is worse today. 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 - Social history:: Smoking status: Patient denies any tobacco usage or history of. - Family history:: not pertinent. - Hospitalizations: : No recent hospitalization is reported. Screenin:36 [facility] ED Fall Risk Assessment (Adult) History of falling in the last 3 months, me1 including since admission No falls in past 3 months (0 pts) Confusion or Disorientation No (0 pts) Intoxicated or Sedated No (0 pts) Impaired Gait No (0 pts) Mobility Assist Device Used No (0 pt) Altered Elimination No (0 pt) Score/Fall Risk Level 0 - 2 = Low Risk Maintained a safe environment, Hourly rounding (assess needs \T\ fall precautionary measures) done, Used ambulatory aids as needed (educated on \T\ assisted with). Abuse screen: Denies threats or abuse. Nutritional screening: No deficits noted. Tuberculosis screening: No symptoms or risk factors identified. Assessment: 12:36 General: See triage assessment. . me1 13:18 GI: Bowel sounds present X 4 quads. Abd is soft and non tender X 4 quads. me1 Vital Signs: 12:30 BP 111 / 65; Pulse 69; Resp 16; Temp 98.2(O); Pulse Ox 100% on R/A; Weight 43.09 kg; me1 Height 5 ft. 3 in. ; Pain 9/10; 13:00 BP 111 / 73; Pulse 73; Resp 14; Pulse Ox 100% on R/A; me1 13:30 BP 118 / 57; Pulse 72; Resp 18; Pulse Ox 99% on R/A; me1 14:55 BP 114 / 70; Pulse 69; Resp 18; Pulse Ox 100% on R/A; me1 12:30 Body Mass Index 16.83 (43.09 kg, 160.02 cm) - Percentile 1.1 % me1 12:30 Pain Scale: Adult ok1 ED Course: 12:30 Patient arrived in ED. me1 12:30 Huseyin Hicks MD is Attending Physician. rn 12:33 Triage completed. me1 12:33 Arm band placed on Patient placed in an exam room. me1 12:36 Patient has correct armband on for positive identification. Bed in low position. Call me1 light in reach. Side rails up X 1. Provided Education on: POC. Verbalized understanding. . 12:36 No provider procedures requiring assistance completed. Maintain EMS IV. Dressing me1 intact. Good blood return noted. Site clean \T\ dry. Gauge \T\ site: 20g RAC. 12:49 Beatriz Swenson, RN is Primary Nurse. me1 13:00 CBC with Diff Sent. me1 13:00 CMP Sent. me1 13:00 Lipase Sent. me1 13:00 Test, Urine Sent. me1 13:00 Urinalysis w/ reflexes Sent. me1 13:32 CT Abd/Pelvis - IV Contrast Only In Process Unspecified. EDMS 14:21 Pelvis Complete In Process Unspecified. EDMS 15:00 IV discontinued, intact, bleeding controlled, No redness/swelling at site. Pressure me1 dressing applied. Administered Medications: No medications were administered Medication: 12:36 VIS not applicable for this client. me1 Outcome: 14:42 Discharge ordered by . rn 14:59 Discharged to home ambulatory, me1 14:59 Condition: stable 14:59 Discharge instructions given to patient, Instructed on discharge instructions, follow up and referral plans. Demonstrated understanding of instructions, follow-up care, 15:00 Patient left the ED. me1 Signatures: Dispatcher [employer] EDHuseyin Perrin MD MD rn Eddleman, Michelle, RN RN me1 Corrections: (The following items were deleted from the chart) 12:33 12:30 Chief complaint: EMS states: abdominal pain/n/v x 4 months, seeing GI and has had me1 an EGD, has a colonoscopy scheduled for next Sunday. Abdominal pain is worse today with associated mid sternal chest pain that soto. 20 g to RAC. Given zofran 4 mg and reglan 5 mg IV with some relief of n/v. me1
[2023-06-27 15:52] VITALS: BP 114/70; TEMP 98.2; O2SAT 100
== END ==
LOC: ER 12:16
DX: R10.30 Lower abdominal pain, unspecified (principal)
CPT/HCPCS: 85025; 81001; 36415; 81025; 83690; 80053; 74177; 76856; Q9967